=== PATIENT | male | born 1955 | race Caucasian/White ===

== ENCOUNTER 2017-11-09 08:04 | Day surgery (SDC) | payer BC, SELFPAY ==
--- NOTE | 2017-11-03 13:30 | EKG12_ITS ---
Test Reason : PRE OP Blood Pressure : / mmHG Vent. Rate : 068 BPM Atrial Rate : 068 BPM P-R Int : 176 ms QRS Dur : 066 ms QT Int : 366 ms P-R-T Axes : 037 -26 042 degrees QTc Int : 389 ms Normal sinus rhythm Inferior infarct , age undetermined, cannot be excluded Abnormal ECG Confirmed by ROSA ALDRIDGE, BLACK ([id number]), web editor INDIGO LEMA ([id number]) on 11/05/2017 1:56:02 PM Referred By: Og Marrufo Confirmed By:BLACK LEE MD
[2017-11-03 15:04] LABS: Hematocrit 43.4 % (40-54); Hemoglobin 15.4 g/dl (13.0-16.5); Mean Corp Hgb Conc 35.5 g/gl (32-36); Mean Corpuscular Hgb 30.7 pg (27.0-32.0); Mean Corpuscular Volume 86.6 fL (80-94); Mean Platelet Vol. 13.2 fl (6.2-12.0); Platelet Count 119 K/mm3 (150-450); RBC Distribution Width CV 12.7 % (11.6-14.6); RBC Distribution Width SD 39.4 fl (35.1-43.9); Red Blood Count 5.01 M/mm3 (4.6-6.2); White Blood Count 5.5 K/mm3 (4.4-11.0)
[2017-11-03 15:05] LABS: Scan Indicated on CBC? Y/N NO
[2017-11-03 15:10] LABS: International Normalized Ratio 1.1; Prothrombin Time (Protime)PT. 13.5 SECONDS (11.7-14.9)
[2017-11-03 15:31] LABS: AST(SGOT) 55 U/L (15-37); Alanine Aminotransfer ALT/SGPT 112 U/L (16-61); Albumin, Serum 3.9 g/dL (3.2-5.0); Alkaline Phosphatase 68 U/L (45-117); Anion Gap 9 (5-15); BUN 20 mg/dL (7-18); BUN/Creat Ratio 18.3 RATIO (10-20); Bilirubin, Direct 0.15 mg/dL (0.00-0.30); Calcium,Total 8.7 mg/dL (8.5-10.1); Chloride 102 mmol/L (98-107); Creatinine, Serum 1.09 mg/dL (0.70-1.30); EST Glomerular Filtration Rate 73 mL/min (>60); Est Glom Filt Rate - Afr Amer 88 mL/min (>60); Globulin 3.4 g/dL (2.2-4.2); Glucose 257 mg/dL (74-106); Potassium 3.8 mmol/L (3.5-5.1); Protein, Total 7.3 g/dL (6.4-8.2); Sodium Level 137 mmol/L (136-145); Thyroid Stim Hormone (TSH) 1.72 uIU/mL (0.358-3.74)
[2017-11-03 15:33] LABS: Hemoglobin A1c 7.1 % (4.2-6.3)
--- NOTE | 2017-11-09 07:06 | DCINST_ITS ---
Discharge Activity: Return to Normal Activity, May not drive while taking narcotic pain medications., May Shower May shower in (days): 2 May resume sexual activity in: 8 weeks Ice area for (Minutes): 20 Additional Activity Instructions:: For comfort. May flex and extend and move shoulder ad jennifer. Call your doctor if your incision/area has: Continuous Slow Oozing, Sudden Increased Bleeding, Increased Pain/ Swelling, Increased Redness, Foul Smelling Discharge, Swelling at the incision site Call your doctor if you observe: Fever of 101 or Higher, Coldness, Increased Pain, Numbness or Tingling, Change in Color, Inability to urinate, Inability to have a bowel movement, Using more than one pad per hour, Shortness of breath, Dizziness, Fainting spells, Swelling in the ankles, Chest pain, Prolonged hiccoughing, Increased palpitations (irregular heartbeat), Calf discomfort, Uncontrolled pain Suture Line Care: Avoid Pulling/Pushing, Avoid Pinching/Bending Change Dressing in (Days):: 2 Remove Dressing in (days):: 2 Cleanse incision/area with: Soap & Water Allergies/Adverse Reactions: Allergies Sulfa (Sulfonamide Antibiotics) Allergy (Mild, Verified 11/02/17 14:11) Hives acetaminophen [From Percocet] Adverse Reaction (Mild, Verified 11/08/17 12:08) anxious oxycodone [From Percocet] Adverse Reaction (Mild, Verified 11/08/17 12:08) anxious Medications to take at Discharge Levothyroxine [Synthroid] 125 mcg PO DAILY 10/26/13 Amlodipine [Norvasc] 5 mg PO DAILY 11/25/14 Brimonidine Tartrate/Timolol [Combigan Eye Drops] 1 drp EACH EYE BID 05/27/16 Brinzolamide [Azopt] 1 drp RIGHT EYE TID 05/27/16 Metformin HCl [Glucophage] 1,000 mg PO BID 05/27/16 Aspirin E.C. [Ecotrin] 81 mg PO QODAY 11/02/17 Erythromycin Ophthalmic [(None)] 1 applic LEFT EYE QHS 11/02/17 Glimepiride [Amaryl] 4 mg PO DAILY 11/02/17 Gluc/Raymond-MSM#1/C/Shilo/Nate/Bor [Osteo Bi-Flex Caplet] 1 each PO DAILY 11/02/17 Latanoprostene Bunod [Vyzulta] 1 drop EACH EYE QHS 11/02/17 Omeprazole 40 mg PO DAILY 11/02/17 Propylene Glycol/Peg 400/Pf [Systane 0.3-0.4% Eye Drops] 1 each EACH EYE BID 03/14 cyclobenzaprine 10 mg tablet 10 mg PO TID PRN #30 tab 11/08/17 Docusate Sodium [Colace] 100 mg PO BID PRN PRN #10 cap 11/09/17 Hydrocodone Bitart/Apap 5-325 [[place] 5/325] 1 - 2 tablet PO Q6H PRN PRN #30 tablet 11/09/17 ProMETHAzine [Phenergan] 25 mg PO Q4H PRN PRN #10 tab 11/09/17 The following prescriptions were given: ProMETHAzine [Phenergan] 25 mg PO Q4H PRN PRN #10 tab PRN Reason: Nausea Hydrocodone Bitart/Apap 5-325 [[place] 5/325] 1 - 2 tablet PO Q6H PRN PRN #30 tablet PRN Reason: Pain Docusate Sodium [Colace] 100 mg PO BID PRN PRN #10 cap PRN Reason: Constipation Primary Care Physician: Grabiel Head MD [STAFF PHYSICIAN] - Please Follow Up With: Og Marrufo DO When: call [facility] for appt for 2 weeks Proposed Discharge Date: 11/09/17
[2017-11-09 08:39] VITALS: BP 126/86; PULSE 70; RESP 16; TEMP 36.3; O2SAT 96; BMI 29.4
[2017-11-09 08:56] LABS: Bedside Glucose 219 mg/dL (70-110)
[2017-11-09] MEDS: Bupivacaine 0.25% 30 ML Vial (10:51)
[2017-11-09 12:40] VITALS: BP 113/84; BP 126/86; PULSE 60; RESP 16; TEMP 35.7; O2SAT 97
--- NOTE | 2017-11-09 12:41 | OP.PN_ITS ---
Immediate Post-Op Note Date of Procedure: 11/09/17 Primary Surgeon/Physician: Og Marrufo, math specialist: None Pre-Operative Diagnosis: Right shoulder osteoarthritis, right shoulder partial rotator cuff tear and labral tear, subacromial impingement Post-Operative Diagnosis: Same as above Surgery/Procedure Performed:: Right shoulder arthroscopy, arthroscopic partial articular sided rotator cuff for debridement, capsular release and type II SLAP debridement, arthroscopic subacromial decompression and acromioplasty Description of Surgical Findings:: See dictation Estimated Blood Loss: 50 Specimen's removed: None Type of Anesthesia:: General ASA Class: ASA1 Normal Healthy Patient - Admit VTE Documentation VTE Present on Admission: No VTE Mechan Device Prophylaxis: SCD's, Knee High LIO Hose VTE Pharm Prophylaxis ordered?: No Reason prophylaxis not ordered:: Treatment Not Indicated
--- NOTE | 2017-11-09 12:41 | PCM.OPRPT ---
Report of Operation Date of Procedure: 11/09/17 Pre-Operative Diagnosis: Right shoulder osteoarthritis, right shoulder partial rotator cuff tear and labral tear, subacromial impingement Post-Operative Diagnosis: Same as above Surgery/Procedure Performed:: Right shoulder arthroscopy, arthroscopic partial articular sided rotator cuff for debridement, capsular release and type II SLAP debridement, arthroscopic subacromial decompression and acromioplasty Description of Surgical Findings:: 62-year-old male with recalcitrant right shoulder pain that failed nonoperative management to include NSAIDs activity modifications physical therapy and injections. Patient plain radiograph and CT examination should that showed glenohumeral arthrosis. Patient was also shown to have a rotator cuff tear partial versus full-thickness not well delineated by CT arthrogram. Having failed conservative measures patient elected for operative intervention. Patient was met in the holding area where the right upper extremity was marked and identified with surgeon. Patient was taken to the operating room in satisfactory condition with somewhat to place to identify patient up procedure limb. Patient received 1 g of vancomycin secondary to MRSA. He underwent a successful intubation he was then placed into a beachchair position with all bony and soft tissue prominences protected. The patient's head was in a fine neutral position. He was then prepped and draped in usual fashion. Posterior portal was established and we entered the intra-articular space. Patient had global synovitis around the shoulder and significant degenerative changes consistent with osteoarthritis labral pathology and rotator cuff pathology. We established a anterior inferior working portal. Diagnostic scope showed the patient have a type II SLAP lesion which really somewhat circumferential around the labral tissue. 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 The patient's biceps although hypertrophic showed minimal injection upon outlet and the patient was asymptomatic preoperatively. The patient had articular sided rotator cuff tear from the supraspinatus moving back to the bare area. His infraspinatus and teres minor were otherwise normal. This was mechanically debrided using a shaver and vapor. Patient roughly 4.5 mm overall loss of thickness. The patient underwent a standard anterior release of the rotator interval [facility] and [facility]. And due to the fact that he had minimal drive-through sign a performed and [facility] L release using mechanical shaver and vapor cautery down to about the 530 position to avoid irritation of the subscapularis and the axillary nerve. Patient had a global debridement of the labrum specifically within the type II SLAP region. He also went underwent a partial synovectomy around the shoulder joint as much as I could identify using vapor cautery and shaver as well. Upon completion of debridement in the capsule release inside the shoulder I felt that the rotator cuff globally looked acceptable and no repair needed to be performed. Upon completion of the anterior inferior capsulotomy the patient had an improved drive-through sign I think this will overall improve his overall range of motion. At that point time the scope was retracted moving the subacromial space. The patient had extensive amount of subacromial bursitis. A lateral working portal was established and a standard arthroscopic subacromial bursectomy was performed to evaluate the rotator cuff through internal and external rotation. Upon removal of the bursal tissue evaluation of the port bursal side of the cuff showed no obvious signs of pathology. I could not appreciate any form of rent with palpation using the probe with a shaver. Again this was done very systematically through internal and external rotation. The patient did have very hypertrophic CA ligament which was released off the anterolateral acromion allowed to float anteriorly. The patient had a type III acromion which was then under underwent a standard acromioplasty of roughly 6 mm using block technique. Upon completion of control all bleeders the scope was retracted and the portal sites closed with 3-0 nylon. He was injected with 30 cc of Marcaine solution around the portal sites and in the subacromial space. He was then dressed in usual fashion to include Xeroform 4 x 4's ABDs and Medipore tape. Patient was then placed into a simple sling. Patient will follow the shoulder arthroscopy protocol from [facility]. I was scrubbed and available time during our procedure. If you require any for the patient presents contact me. bindery helper: None Type of Anesthesia:: General Specimen's removed: None Estimated Blood Loss (mL): 50 - Complications None - Admit VTE Documentation VTE Present on Admission: No VTE Mechan Device Prophylaxis: SCD's, Knee High LIO Hose VTE Pharm Prophylaxis ordered?: No Reason prophylaxis not ordered:: Treatment Not Indicated
[2017-11-09] MEDS: Ketorolac 15 MG/ML Vial IV (12:51)
[2017-11-09 13:00] VITALS: BP 119/87; BP 126/86; PULSE 58; RESP 16; O2SAT 94
[2017-11-09 13:15] VITALS: BP 118/86; BP 126/86; PULSE 52; RESP 16; O2SAT 94
[2017-11-09 13:30] VITALS: BP 118/81; BP 126/86; PULSE 62; RESP 16; TEMP 35.8; O2SAT 94
[2017-11-09 13:45] LABS: Bedside Glucose 150 mg/dL (70-110)
[2017-11-09 14:37] VITALS: BP 126/86
== END 2017-11-09 14:41 | disposition home or self-care (01) ==
LOC: SDC 08:05 → AC 08:06
PROVIDERS: Visit Provider Orthopaedic Surgery
PROC: (CPT 29827; principal; 2017-11-09 10:30)
DX: M75.111 Incomplete rotator cuff tear or rupture of right shoulder, not specified as traumatic (principal); M75.41 Impingement syndrome of right shoulder; M19.011 Primary osteoarthritis, right shoulder; G89.29 Other chronic pain; E11.9 Type 2 diabetes mellitus without complications; I10 Essential (primary) hypertension; H40.9 Unspecified glaucoma; G47.30 Sleep apnea, unspecified; R07.9 Chest pain, unspecified; K21.9 Gastro-esophageal reflux disease without esophagitis; Z79.82 Long term (current) use of aspirin; F17.200 Nicotine dependence, unspecified, uncomplicated; Z79.84 Long term (current) use of oral hypoglycemic drugs; Z79.899 Other long term (current) drug therapy; I25.2 Old myocardial infarction
CPT/HCPCS: 01630; 29822; 29826; 36415; 80048; 80076; 82962; 83036; 84443; 85027; 85610; 85730; J7120; J2405

== ENCOUNTER → 2017-11-29 14:10 | Outpatient (CLI) | payer BC, SELFPAY | DX: Z00.00 Encounter for general adult medical examination without abnormal findings (principal) ==

== ENCOUNTER 2017-12-30 13:30 | Outpatient (RCR) | payer BC, SELFPAY ==
--- NOTE | 2017-11-30 14:36 | HP.PTEVAL_ITS ---
Patient's Visit Information ROBERT ART is a 62 year old M referred to Physical Therapy by DO MARITZA Perez with a diagnosis of R shoulder SAD and debridement. Date of Evaluation: 11/30/17 Physical Therapist: Prince Coburn PT, - Visit Plan Frequency: 2x /Week Duration: 4-6 Weeks Plan: R shoulder AROM/PROM, stretching and strengthening, scap stab ex's, UBE, and HEP - Subjective Subjective: DOS: 11/09/17. Pt reports intermittent R shoulder pain for approximately 2-3 years. Pt finally had SAD and R rot cuff debridement performed to help alleviate the pain. Pt reports he is feeling much better since having the surgery. Pt reports he still has diff with overhead lifting. Pt is R hand dominant. No T or N in R UE. Occasional sleep diff secondary to pain. Pt is currently retired at this time. Pt reports his goal is to get better ROM and strength in R UE so he can return to his normal IADL's. 2/10 at rest, 7/10 in the morning - Pain R shoulder Pain Intensity (Out of 10): 2 Pain Intensity Range: 7 - Objective Neuro: B LE sensation is WNL to light touch. B bicepital reflex= 1/3. ROM: L shoulder flex= 160, abd= 160, ER= 50, IR WNL; R shoulder flex= 80, abd= 80, ER= 40, IR moderately limited. MMT: L shoulder 5/5 throughout. R shoulder 3-/5 and painful - Goals Goal 1:: Decrease R shoulder pain x 50% to aid with sleep Goal Time Frame: 4-6 Weeks Goal 2:: Increase R shoulder AROM flex and abd x 30 degerees to aid with overhead activity Goal Time Frame: 4-6 Weeks Goal 3:: Increase R shoulder strength x 1 grade to aid with pt's ability to perform yard work Goal Time Frame: 4-6 Weeks Goal 4:: I with HEP Goal Time Frame: 4-6 Weeks - Rehabilitation Potential Physical Therapy Diagnosis: R shoulder pain, weakness, and limited mobility secondary to R shoulder SAD and debridement Rehabilitation Potential: Good - Anticipated Interventions Patient/Client Instruction: Educate patient on: Condition, Plan of Care For the Purpose of:: To improve self management Therapeutic Exercise to Include: Strength training, Endurance training, Postural training, Flexibilty training, Passive ROM, Active ROM, Scapular Strength/Stabilization For the Purpose of:: To decrease pain, To increase ROM, To improve muscle performance and motor function Cryotherapy (ice pack, ice massage): Yes For the Purpose of:: To decrease pain Thank you for the opportunity to evaluate your patient. For Medicare and Medicare HMO plans, please review the plan of care and approve it. It will need to be FAXED BACK to us at [phone] for Medicare purposes. Please let me know if there are questions or concerns regarding this plan of care. Physician Signature: Date:
--- NOTE | 2017-12-30 14:02 | HP.PTDCSUM ---
HP - PT D/C Summary It has been my pleasure to treat ROBERT ART under orders from Og Marrufo DO, for the diagnosis of R shoulder SAD and debridement for a total of 10 visit(s). Discharge Date: Please see the following information for a summary of their discharge status. - Subjective Subjective: Pt reports only mild pain this date - Pain R shoulder Pain Intensity (Out of 10): 4 - Objective Objective/Function: R shoulder pain 4/10. R shoudler ROM: flex= 160, abd= 120, ER= 40, IR WNL. R shoulder MMT: R shoulder 5/5 throughout. I with HEP - Goals Goal 1:: Decrease R shoulder pain x 50% to aid with sleep Goal 2:: Increase R shoulder AROM flex and abd x 30 degerees to aid with overhead activity Goal Progress: Goal Met Goal 3:: Increase R shoulder strength x 1 grade to aid with pt's ability to perform yard work Goal 4:: I with HEP - Plan Plan: Discharge - D/C Information If there are questions or concerns regarding this patient's physical therapy, please feel free to call me at [phone]. Thank you for the referral of this patient. Sincerely, Prince Coburn, PT,
== END 2017-12-30 19:00 | disposition home or self-care (01) ==
LOC: PT 13:30
PROVIDERS: Visit Provider Orthopaedic Surgery
DX: Z98.890 Other specified postprocedural states (principal)
CPT/HCPCS: 97110; 97161; 97530

== ENCOUNTER 2018-05-17 12:25 | Emergency (ER) | payer BC, SELFPAY ==
--- NOTE | 2018-05-17 12:26 | ED.RN ---
PT PRE REG STRAIGHT TO ROOM. THIS RN CALLED FOR EKG
[2018-05-17 12:32] VITALS: BP 127/92; PULSE 67; RESP 17; TEMP 36.4; BMI 28.7
[2018-05-17 12:34] VITALS: PULSE 66; RESP 22; O2SAT 95
[2018-05-17] MEDS: 0.9% Normal Saline 1,000 ML 150 ML IV (13:14)
[2018-05-17] MEDS: Morphine 4 MG/ML Syringe IV (13:14)
[2018-05-17 13:16] LABS: Absolute Lymphocyte Count 2.02 X10^3/ul (0.83-4.51); Absolute Neutrophil Count 4.3 X10^3/uL (2.0-7.7); Basophil# 0.04 X10^3/uL; Basophil% 0.6 % (0-1); Eosinophil# 0.11 X10^3/uL; Eosinophils% 1.6 % (0-5); Hematocrit 45.2 % (40-54); Hemoglobin 15.6 g/dl (13.0-16.5); Lymphocyte # 2.02 X10^3/ul (4.0); Lymphocyte % 28.9 % (19-41); Mean Corp Hgb Conc 34.5 g/gl (32-36); Mean Corpuscular Hgb 30.5 pg (27.0-32.0); Mean Corpuscular Volume 88.5 fL (80-94); Mean Platelet Vol. 12.2 fl (6.2-12.0); Monocyte% 7.2 % (0-10); Neutrophil % 61.4 % (47-70); Platelet Count 135 K/mm3 (150-450); RBC Distribution Width CV 12.8 % (11.6-14.6); RBC Distribution Width SD 41.2 fl (35.1-43.9); Red Blood Count 5.11 M/mm3 (4.6-6.2)
[2018-05-17 13:17] LABS: POSITIVE COUNT NO; POSITIVE DIFFERENTIAL NO; POSITIVE MORPHOLOGY NO
[2018-05-17 13:33] LABS: Anion Gap 6 (5-15); BUN 22 mg/dL (7-18); BUN/Creat Ratio 22.1 RATIO (10-20); Calcium,Total 9.1 mg/dL (8.5-10.1); Chloride 108 mmol/L (98-107); EST Glomerular Filtration Rate 80 mL/min (>60); Est Glom Filt Rate - Afr Amer 97 mL/min (>60); Estimated Creatinine Clearance 78.07 ml/min; Glucose 163 mg/dL (74-106); Potassium 4.2 mmol/L (3.5-5.1); Sodium Level 140 mmol/L (136-145)
[2018-05-17 14:24] VITALS: BP 115/77; PULSE 60; RESP 24; O2SAT 93
--- NOTE | 2018-05-17 14:31 | ED.DCSUM_ITS ---
- ER Visit Summary Date of Service: 05/17/18 Chief Complaint: Chest pain History of Present Illness: The patient is a [address] Head. He reports that he has left lower chest pain that began 2 days ago. It is been continuous for the past 13 hours. It is a sharp pain. Senna 10 at worst and 6 out of 10 currently. Is worsened by eating and relieved by [place]. Reports he has felt nauseated. No vomiting. He has been diaphoretic at time. No shortness of breath. Patient reports that he has increased his intake of ibuprofen and Aleve over the past few weeks. Physical Examination: Vitals: Stable. Afebrile. General: Well-nourished and well-developed. Head: Normocephalic atraumatic. Neck: Supple, no lymphadenopathy. No JVD. Nontender. Cardiovascular: Regular rate and rhythm. No murmurs. Respiratory: No respiratory distress. Clear to auscultation bilaterally. Mild tenderness palpation over the lower ribs on the left which does reproduce his pain. Abdominal: Soft, nontender, nondistended, normal bowel sounds. No guarding, rebound, or peritoneal signs. Back: Nontender. Extremities: Nontender, no edema. Skin: Normal color, no rash. Neurologic: Alert and oriented ?3. Cranial nerves II through XII are intact. Normal strength and sensation. Psych: Normal affect. Test Results: EKG is sinus at [address] changes. It is unchanged from October of this year. Troponins negative. CBC is more for platelets 135. Chem-7 is more for chloride 108, BUN of 22, and glucose of 163. Chest x- ray shows atelectasis. Emergency Department Course and Treatment: Patient was treated the dose of morphine IV. He is resting comfortably. Treatment Plan: Had a prolonged discussion with the patient about the possibility of gastritis given his increased naproxen and ibuprofen. He is instructed to take his Nexium daily. Use Tylenol instead for pain. Follow-up his primary care physician 1 to days if not improving. Return to the emergency department for any worsening symptoms. Disposition: To home in improved and stable condition. Impression: 1. Atypical chest pain. 2. MANUEL score of 1. This note was generated with KupiKupon[employer] software. It may contain incorrect words, spelling, and punctuation that were not noted in review of the chart prior to signing ED Disposition - Plan for ED Patient: Disposition: Home or Assisted Living Chief Complaint: Chest Pain Instructions: ED Chest Pain Atypical Unkn Cause Referrals: Grabiel Head [Primary Care Provider] - 3-5 Days if not improving
[2018-05-17 14:57] VITALS: BP 113/84; PULSE 56; RESP 16; O2SAT 93
== END 2018-05-17 14:59 | disposition home or self-care (01) ==
LOC: ED 12:59
PROVIDERS: Emergency Provider Emergency Medicine
DX: R07.89 Other chest pain (principal); J98.11 Atelectasis; R11.0 Nausea; E11.9 Type 2 diabetes mellitus without complications; I10 Essential (primary) hypertension; G47.33 Obstructive sleep apnea (adult) (pediatric); H40.9 Unspecified glaucoma; Z79.84 Long term (current) use of oral hypoglycemic drugs; Z79.82 Long term (current) use of aspirin; Z79.899 Other long term (current) drug therapy
CPT/HCPCS: 71045; 80048; 84484; 85025; 93005; 96361; 96374; 99284; J7030; A4216

== ENCOUNTER → 2018-07-11 10:34 | Outpatient (CLI) | payer BC, SELFPAY ==
[2018-07-11 12:53] LABS: Hemoglobin A1c 6.8 % (4.2-6.3)
[2018-07-11 12:57] LABS: AST(SGOT) 52 U/L (15-37); Alanine Aminotransfer ALT/SGPT 94 U/L (16-61); Alkaline Phosphatase 70 U/L (45-117); Bilirubin, Direct 0.14 mg/dL (0.00-0.30); Cholesterol 164 mg/dL (200); Globulin 3.4 g/dL (2.2-4.2); High Density Lipoprotein 38 mg/dL; Protein, Total 7.4 g/dL (6.4-8.2); Thyroid Stim Hormone (TSH) 2.97 uIU/mL (0.358-3.74); Triglycerides 136 mg/dL; Very Low Density Lipoprotein 27 mg/dL (5-40)
== END ==
PROVIDERS: Referring Provider Family Medicine; Visit Provider Family Medicine
DX: I10 Essential (primary) hypertension (principal); E03.9 Hypothyroidism, unspecified; E11.65 Type 2 diabetes mellitus with hyperglycemia
CPT/HCPCS: 36415; 80061; 80076; 83036; 84443

== ENCOUNTER → 2018-07-18 08:54 | Outpatient (CLI) | payer BC, SELFPAY ==
--- NOTE | 2018-07-18 08:57 | RAD_ITS ---
STUDY: X-RAY - ESOPHAGUS (BARIUM SWALLOW) WITH FLUOROSCOPY REASON FOR EXAM: Male, 63 years old. Two-year history of a acid reflux. TECHNIQUE: 23 view(s) of the esophagus were obtained following swallowing of barium. FLUOROSCOPY TIME (if supplied): (0:30) minutes/seconds COMPARISON: None. FINDINGS: There is no demonstrated esophageal foreign body. There is no demonstrated stricture or mucosal abnormality. Normal gastroesophageal junction, without a demonstrated hiatal hernia. The patient ingested a 12 mm tablet and without any difficulty. Normal visualized aortic arch and descending thoracic aorta. Normal visualized pulmonary parenchyma. Normal visualized osseous structures of the thorax. RAD/Esophagus Only IMPRESSION: Normal plain film x-ray examination (barium swallow) of the esophagus. Electronically Signed: Deangelo Mora MD at 15:57 EDT Tel [phone], Service support ,
== END ==
PROVIDERS: Referring Provider Internal Medicine Gastroenterology; Visit Provider Internal Medicine Gastroenterology
DX: R13.10 Dysphagia, unspecified (principal)
CPT/HCPCS: 74220

== ENCOUNTER → 2018-08-01 14:28 | Outpatient (CLI) | payer BC, SELFPAY ==
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
== END ==
PROVIDERS: Referring Provider Otolaryngology; Visit Provider Otolaryngology
DX: J32.9 Chronic sinusitis, unspecified (principal)
CPT/HCPCS: 70486

== ENCOUNTER → 2018-09-01 15:01 | Outpatient (CLI) | payer BC, SELFPAY ==
[2018-09-01 17:11] LABS: PSA,Total - Annual Screen 3.14 ng/mL (0.00-4.00)
== END ==
PROVIDERS: Referring Provider Urology; Visit Provider Urology
DX: Z12.5 Encounter for screening for malignant neoplasm of prostate (principal)
CPT/HCPCS: 36415; 84153; G0103

== ENCOUNTER 2018-10-05 06:37 | Observation (INO) | payer BC, SELFPAY ==
[2018-10-05] VITALS (15 sets, daily range): BP systolic 101–132; BP diastolic 59–87; PULSE 55–73; RESP 12–18; TEMP 36.6–37; O2SAT 91–99; BMI 29.3; BMI 28.7; BMI 28.8
--- NOTE | 2018-10-05 06:46 | RAD_ITS ---
STUDY: X-RAY CHEST REASON FOR EXAM: Male, 63 years old. Chest pain TECHNIQUE: Single frontal view of the chest. COMPARISON: May 17, 2018. FINDINGS: EKG leads artifacts. No pneumothorax. No pleural effusion. Left basilar atelectasis/infiltrate. Normal size heart. Aortic calcifications. There are diffuse degenerative changes of the visualized thoracic spine. There is degenerative osteoarthritis of the bilateral shoulders. There is no demonstrated abnormality of the visualized soft tissue structures of the upper abdomen. RAD/Chest 1 View (Portable) IMPRESSION: Left basilar atelectasis/infiltrate. Electronically Signed: Roberto Carlos Larsen, at 7:48 EST Tel , Service support ,
--- NOTE | 2018-10-05 06:46 | EKG12_ITS ---
Test Reason : CP Blood Pressure : / mmHG Vent. Rate : 063 BPM Atrial Rate : 063 BPM P-R Int : 164 ms QRS Dur : 064 ms QT Int : 402 ms P-R-T Axes : 049 -44 057 degrees QTc Int : 411 ms Normal sinus rhythm Left axis deviation Abnormal ECG Confirmed by SCAR ALDRIDGE, MAYRA ([id number]), editor farm journal INDIGO LEMA ([id number] on 10/10/2018 10:01:31 AM Referred By: LUC Confirmed By:MAYRA ABBOTT MD
--- NOTE | 2018-10-05 06:49 | ED.VISSUMM ---
- ER Visit Summary Date of Service: 10/05/18 Chief Complaint: Chest pain History of Present Illness: The patient is a 63 M who presents with chest pain. It began 2 days ago. It worsened overnight. His pain is sharp. It is located in the lower chest/upper abdomen. He does feel short of breath and nauseated. No vomiting or diaphoresis. He called EMS this morning and was given aspirin and 1 sublingual nitroglycerin. After the nitroglycerin he became nauseated. He then became bradycardic and had a syncopal episode. He does note a prior history of chest pain chronically at least for many months and has seen his physician for this. No known coronary disease. He does have diabetes and hypertension and is a smoker. There is a family history of coronary disease but not at a young age. His pain was 7 out of 10 but he was given aspirin and nitroglycerin by EMS and his pain improved to 3 out of 10. Physical Examination: Blood pressure 101/59 vitals otherwise normal Moist mucous membranes Skin warm and dry Heart regular rate and rhythm Lungs are clear without rales rhonchi or wheezes The abdomen soft nondistended he does have epigastric tenderness to palpation Extremities nontender without edema 2+ symmetric radial pulses Test Results: EKG shows sinus rhythm at a rate of 63. Chest x-ray on my review shows no acute process. CBC unremarkable.. Labs otherwise notable for glucose 160, ALT 131, AST 62. Lipase normal. Troponin negative. CTA of the chest and abdomen is pending. Emergency Department Course and Treatment: Patient was guarded given aspirin by EMS. Although nitroglycerin did help with his symptoms given that he became nauseated and had a syncopal episode I did not want to give any further nitroglycerin here. He was given IV morphine with some improvement of symptoms. He then began to complain of pain radiating towards his left shoulder. Given chest and abdominal pain I have ordered a CTA of the chest and abdomen to further evaluate. Patient will be discussed with the oncoming physician for follow-up on the CTs and reevaluation. Treatment Plan: [] Disposition: Pending CTA chest and abdomen Impression: Chest pain Abdominal pain This note was generated with [employer] dictation software. It may contain incorrect words, spelling, and punctuation that were not noted in review of the chart prior to signing ED Disposition - Plan for ED Patient: Chief Complaint: Chest Pain Referrals: Grabiel Head [Primary Care Provider] -
[2018-10-05] MEDS: Ondansetron 4 MG/2 ML Vial IV (06:55)
[2018-10-05] MEDS: Morphine 4 MG/ML Syringe IV ×2 (06:58→07:51)
[2018-10-05 07:03] LABS: Absolute Lymphocyte Count 3.01 X10^3/ul (0.83-4.51); Absolute Neutrophil Count 4.1 X10^3/uL (2.0-7.7); Basophil# 0.04 X10^3/uL; Basophil% 0.5 % (0-1); Eosinophil# 0.11 X10^3/uL; Eosinophils% 1.4 % (0-5); Hematocrit 44.2 % (40-54); Lymphocyte # 3.01 X10^3/ul (4.0); Lymphocyte % 38.3 % (19-41); Mean Corp Hgb Conc 33.9 g/gl (32-36); Mean Corpuscular Hgb 29.8 pg (27.0-32.0); Mean Corpuscular Volume 87.9 fL (80-94); Mean Platelet Vol. 12.1 fl (6.2-12.0); Monocyte# 0.59 X10^3/uL; Monocyte% 7.5 % (0-10); Neutrophil # 4.09 X10^3/uL (2.7-7.7); Neutrophil % 52.2 % (47-70); Platelet Count 124 K/mm3 (150-450); RBC Distribution Width CV 12.6 % (11.6-14.6); RBC Distribution Width SD 40.5 fl (35.1-43.9); Red Blood Count 5.03 M/mm3 (4.6-6.2); White Blood Count 7.9 K/mm3 (4.4-11.0)
[2018-10-05 07:04] LABS: POSITIVE COUNT NO; POSITIVE DIFFERENTIAL NO; POSITIVE MORPHOLOGY NO
[2018-10-05 07:17] LABS: AST(SGOT) 62 U/L (15-37); Alanine Aminotransfer ALT/SGPT 131 U/L (16-61); Albumin, Serum 3.7 g/dL (3.2-5.0); Alkaline Phosphatase 74 U/L (45-117); Anion Gap 8 (5-15); BUN 17 mg/dL (7-18); BUN/Creat Ratio 17.1 RATIO (10-20); Bilirubin, Direct 0.16 mg/dL (0.00-0.30); Calcium,Total 8.4 mg/dL (8.5-10.1); Chloride 107 mmol/L (98-107); EST Glomerular Filtration Rate 80 mL/min (>60); Est Glom Filt Rate - Afr Amer 97 mL/min (>60); Estimated Creatinine Clearance 77.06 ml/min; Globulin 3.3 g/dL (2.2-4.2); Glucose 160 mg/dL (74-106); Lipase 181 U/L (73-393); Potassium 3.9 mmol/L (3.5-5.1); Sodium Level 139 mmol/L (136-145)
--- NOTE | 2018-10-05 07:39 | CT_ITS ---
STUDY: CTA OF THE ABDOMINAL AORTA REASON FOR EXAM: Male, 63 years old. Chronic right-sided chest pain and rib pain. RADIATION DOSAGE (If Supplied By Facility): CTDIvol = ( 15.67 ) mGy, DLP = ( 1156.67 ) mGycm TECHNIQUE: Axial CT angiography multi-detector data acquisition was obtained from the dome of the liver to the iliac crests following intravenous administration of 100 ml of Isovue 300 contrast. Axial images and MIP images were reconstructed from the axial data set. Post-processing of the angiographic images was performed, with multiplanar reformation and 3D reconstruction. Individualized dose optimization techniques were used for this CT. TECHNICAL QUALITY: Good COMPARISON: None. Descriptors of Narrowing: None (0%) Mild (< 50%) Moderate (50-70%) Severe (70-90%) Subtotal/Total Occlusion (90-100%) Non-Evaluable (technically non-diagnostic FINDINGS: There is diffuse fatty infiltration of the liver. There is a 4.4 cm x 4.4 cm cyst in the medial inferior pole of the right kidney. Small umbilical hernia containing fat. Abdominal aorta: No demonstrated narrowing. Celiac and superior mesenteric arteries: No demonstrated narrowing. Inferior mesenteric artery: No demonstrated narrowing. Right renal artery(arteries): No demonstrated narrowing. Left renal artery(arteries): No demonstrated narrowing. Right common iliac artery: No demonstrated narrowing. Right external iliac artery: No demonstrated narrowing. Right internal iliac artery: No demonstrated narrowing. Left common iliac artery: No demonstrated narrowing. Left external iliac artery: No demonstrated narrowing. Left internal iliac artery: No demonstrated narrowing. IMPRESSION: Diffuse fatty infiltration of the liver. Right renal cyst. Multilevel disc space narrowing and spondylosis. Electronically Signed: Deangelo Mora MD at 8:54 EST Tel [phone], Service support , STUDY: CTA CHEST REASON FOR EXAM: Male, 63 years old. Right-sided chest pain and rib pain for several months. RADIATION DOSAGE (If Supplied By Facility): CTDIvol = ( 15.67 ) mGy, DLP = ( 1156.67 ) mGycm TECHNIQUE: The examination was performed with the intravenous administration of 100 ml of Isovue 300 contrast material. Post-processing of the angiographic images was performed, with multiplanar reformation and 3D reconstruction. Individualized dose optimization techniques were used for this CT. COMPARISON: None. FINDINGS: Normal enhancement of the main pulmonary artery and right and left pulmonary arteries. Normal enhancement of the bilateral peripheral pulmonary arteries. There is no demonstrated pulmonary embolism. Normal thoracic aorta and visualized great vessels. There is no demonstrated aortic dissection. Normal heart and pericardium. Normal mediastinum. Normal hilar regions. Normal visualized trachea and bronchi. The lungs are well expanded. Normal pulmonary parenchyma. Normal pleura. Normal chest wall structures. There are degenerative changes of thoracic spine. Small hiatal hernia. Diffuse fatty infiltration of the liver. CT/CTA Abdomen W/WO Contrast IMPRESSION: Normal CTA chest examination, without a demonstrated pulmonary embolism or arterial dissection. Electronically Signed: Deangelo Mora MD at 8:55 EST Tel [phone], Service support ,
--- NOTE | 2018-10-05 07:39 | CT_ITS ---
STUDY: CTA OF THE ABDOMINAL AORTA REASON FOR EXAM: Male, 63 years old. Chronic right-sided chest pain and rib pain. RADIATION DOSAGE (If Supplied By Facility): CTDIvol = ( 15.67 ) mGy, DLP = ( 1156.67 ) mGycm TECHNIQUE: Axial CT angiography multi-detector data acquisition was obtained from the dome of the liver to the iliac crests following intravenous administration of 100 ml of Isovue 300 contrast. Axial images and MIP images were reconstructed from the axial data set. Post-processing of the angiographic images was performed, with multiplanar reformation and 3D reconstruction. Individualized dose optimization techniques were used for this CT. TECHNICAL QUALITY: Good COMPARISON: None. Descriptors of Narrowing: None (0%) Mild (< 50%) Moderate (50-70%) Severe (70-90%) Subtotal/Total Occlusion (90-100%) Non-Evaluable (technically non-diagnostic FINDINGS: There is diffuse fatty infiltration of the liver. There is a 4.4 cm x 4.4 cm cyst in the medial inferior pole of the right kidney. Small umbilical hernia containing fat. Abdominal aorta: No demonstrated narrowing. Celiac and superior mesenteric arteries: No demonstrated narrowing. Inferior mesenteric artery: No demonstrated narrowing. Right renal artery(arteries): No demonstrated narrowing. Left renal artery(arteries): No demonstrated narrowing. Right common iliac artery: No demonstrated narrowing. Right external iliac artery: No demonstrated narrowing. Right internal iliac artery: No demonstrated narrowing. Left common iliac artery: No demonstrated narrowing. Left external iliac artery: No demonstrated narrowing. Left internal iliac artery: No demonstrated narrowing. IMPRESSION: Diffuse fatty infiltration of the liver. Right renal cyst. Multilevel disc space narrowing and spondylosis. Electronically Signed: Deangelo Mora MD at 8:54 EST Tel [phone], Service support , STUDY: CTA CHEST REASON FOR EXAM: Male, 63 years old. Right-sided chest pain and rib pain for several months. RADIATION DOSAGE (If Supplied By Facility): CTDIvol = ( 15.67 ) mGy, DLP = ( 1156.67 ) mGycm TECHNIQUE: The examination was performed with the intravenous administration of 100 ml of Isovue 300 contrast material. Post-processing of the angiographic images was performed, with multiplanar reformation and 3D reconstruction. Individualized dose optimization techniques were used for this CT. COMPARISON: None. FINDINGS: Normal enhancement of the main pulmonary artery and right and left pulmonary arteries. Normal enhancement of the bilateral peripheral pulmonary arteries. There is no demonstrated pulmonary embolism. Normal thoracic aorta and visualized great vessels. There is no demonstrated aortic dissection. Normal heart and pericardium. Normal mediastinum. Normal hilar regions. Normal visualized trachea and bronchi. The lungs are well expanded. Normal pulmonary parenchyma. Normal pleura. Normal chest wall structures. There are degenerative changes of thoracic spine. Small hiatal hernia. Diffuse fatty infiltration of the liver. CT/CTA Chest W/WO Contrast IMPRESSION: Normal CTA chest examination, without a demonstrated pulmonary embolism or arterial dissection. Electronically Signed: Deangelo Mora MD at 8:55 EST Tel [phone], Service support ,
[2018-10-05] MEDS: proMETHazine 25 MG/ML Syringe 12.5 MG IV (07:51)
--- NOTE | 2018-10-05 09:24 | NURSING ---
HOSPITALIST FOR ER DOC
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
--- NOTE | 2018-10-05 10:06 | EKG12_ITS ---
Test Reason : CHEST PAIN Blood Pressure : / mmHG Vent. 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
[2018-10-05] MEDS: Gabapentin 300 MG Capsule PO ×3 (12:09→22:17)
[2018-10-05 17:15] LABS: Bedside Glucose 213 mg/dL (70-110)
[2018-10-05] MEDS: BRIMONIDINE 0.2% 5ML BOTTLE 1 DRP EACH EYE (22:03)
[2018-10-05] MEDS: Timolol 0.5% 5ML OPTH.BTL 1 DRP EACH EYE (22:03)
[2018-10-05] MEDS: Dorzolamide 2% 10ml Bottle 1 DRP RIGHT EYE (22:11)
[2018-10-05] MEDS: Erythromycin Base 1 OPTH.TUBE 1 APPLIC LEFT EYE (22:14)
[2018-10-05] MEDS: Acetaminophen 325 MG Tablet 650 MG PO (22:38)
[2018-10-05] MEDS: 0.9% NaCl Peripheral Flush Adult/Peds IV (23:28)
[2018-10-06] VITALS (12 sets, daily range): BP systolic 121–136; BP diastolic 74–91; PULSE 59–104; RESP 16–17; TEMP 36.7–36.8; O2SAT 92–96
--- NOTE | 2018-10-06 05:00 | EKG12_ITS ---
Test Reason : AM EKG Blood Pressure : / mmHG Vent. Rate : 057 BPM Atrial Rate : 057 BPM P-R Int : 164 ms QRS Dur : 080 ms QT Int : 402 ms P-R-T Axes : 036 -43 050 degrees QTc Int : 391 ms Sinus bradycardia Left axis deviation Abnormal ECG When compared with ECG of 05-OCT-2018 10:15, MANUAL COMPARISON REQUIRED, DATA IS UNCONFIRMED Confirmed by SCAR ALDRIDGE, MAYRA ([id number]), avid editor [employer]DIG[employer] LEMA ([id number]) on 10/10/2018 10:20:58 AM Referred By: DR WILKINSON Confirmed By:MAYRA ABBOTT MD
[2018-10-06 05:12] LABS: International Normalized Ratio 1.1; Prothrombin Time (Protime)PT. 14.1 SECONDS (11.7-14.9)
[2018-10-06 05:13] LABS: Absolute Lymphocyte Count 2.02 X10^3/ul (0.83-4.51); Absolute Neutrophil Count 2.7 X10^3/uL (2.0-7.7); Anion Gap 9 (5-15); BUN 20 mg/dL (7-18); BUN/Creat Ratio 20.6 RATIO (10-20); Basophil# 0.04 X10^3/uL; Basophil% 0.7 % (0-1); Calcium,Total 8.4 mg/dL (8.5-10.1); Chloride 108 mmol/L (98-107); Creatinine, Serum 0.97 mg/dL (0.70-1.30); EST Glomerular Filtration Rate 83 mL/min (>60); Eosinophils% 1.8 % (0-5); Est Glom Filt Rate - Afr Amer 100 mL/min (>60); Estimated Creatinine Clearance 79.44 ml/min; Glucose 179 mg/dL (74-106); Hematocrit 41.9 % (40-54); Lymphocyte # 2.02 X10^3/ul (4.0); Lymphocyte % 37.3 % (19-41); Mean Corp Hgb Conc 33.4 g/gl (32-36); Mean Corpuscular Volume 89.9 fL (80-94); Mean Platelet Vol. 12.5 fl (6.2-12.0); Monocyte# 0.51 X10^3/uL; Monocyte% 9.4 % (0-10); Neutrophil # 2.74 X10^3/uL (2.7-7.7); Neutrophil % 50.6 % (47-70); Partial Thromboplast Time 26.2 Seconds (24.1-36.2); Platelet Count 100 K/mm3 (150-450); Potassium 4.1 mmol/L (3.5-5.1); RBC Distribution Width CV 12.8 % (11.6-14.6); RBC Distribution Width SD 41.3 fl (35.1-43.9); Red Blood Count 4.66 M/mm3 (4.6-6.2); Sodium Level 144 mmol/L (136-145); White Blood Count 5.4 K/mm3 (4.4-11.0)
[2018-10-06] MEDS: Gabapentin 300 MG Capsule PO ×3 (05:14→22:02)
[2018-10-06] MEDS: Aspirin E.C. 81 MG Tablet PO (05:14)
[2018-10-06] MEDS: Levothyroxine 125 MCG Tablet PO (05:14)
[2018-10-06] MEDS: Dorzolamide 2% 10ml Bottle 1 DRP RIGHT EYE ×3 (05:15→22:00)
[2018-10-06 05:50] LABS: POSITIVE COUNT NO; POSITIVE DIFFERENTIAL NO; POSITIVE MORPHOLOGY NO
--- NOTE | 2018-10-06 06:28 | NURSING ---
Patient to stress test via wheelchair, denies chest pain at this time.
[2018-10-06] MEDS: Enoxaparin 40 MG/0.4 ML Syringe SC (09:02)
[2018-10-06] MEDS: Docusate Sodium 100 MG Capsule PO (09:02)
[2018-10-06] MEDS: Glimepiride 4 MG Tablet PO (09:02)
[2018-10-06] MEDS: amLODIPine 5 MG Tablet PO (09:03)
[2018-10-06] MEDS: Pantoprazole Sodium 40 MG Tablet PO (09:03)
[2018-10-06] MEDS: BRIMONIDINE 0.2% 5ML BOTTLE 1 DRP EACH EYE ×2 (09:04→22:00)
[2018-10-06] MEDS: Timolol 0.5% 5ML OPTH.BTL 1 DRP EACH EYE ×2 (09:04→22:01)
[2018-10-06] MEDS: Acetaminophen 325 MG Tablet 650 MG PO ×2 (09:07→18:19)
--- NOTE | 2018-10-06 10:13 | STRESSREP_ITS ---
Stress Test Report Date: 10/06/2018 Procedure: Exercise tolerance test/imaging study Indications: Chest pain Consent: Per the patient Procedure: The patient exercised on a Brandan protocol for 7 minutes completing Stage II and 1 minute of Stage III achieving a peak heart rate of 148 bpm (94 % predicted maximal heart rate) with a peak blood pressure 192/90 mmHg and a peak MET capacity of 8 METs. The baseline ECG demonstrated sinus bradycardia. The peak exercise ECG demonstrated somatic/motion artifact with no obvious ECG changes. There was a rare PVC during exercise. The functional capacity was considered. There was no complaint of chest discomfort during exercise or recovery. The examination was discontinued secondary to leg discomfort. Impression: 1. Technically adequate (percent predicted maximal heart rate greater than 85%) exercise tolerance test 2. Peak exercise ECG demonstrated somatic/motion artifact with no obvious ECG changes 3. It was a rare PVC during exercise 4. Nuclear images pending Myocardial perfusion imaging study: Technique: The patient was injected with 11.9 mCi of technetium 99m Cardiolite and subsequently rest SPECT Cardiolite nuclear imaging was obtained in the horizontal long, vertical long, and short axis views. The patient exercised on a Brandan protocol for 7 minutes completing Stage II and 1 minute of Stage III achieving a peak heart rate of 148 bpm (94 % predicted maximal heart rate) with a peak blood pressure 192/90 mmHg and a peak MET capacity of 8 METs. The patient was injected with 34.7 mCi of technetium 99m Cardiolite and subsequently stress SPECT Cardiolite nuclear imaging was obtained in the horizontal long, vertical long, and short axis views. A gated Cardiolite study at peak stress was obtained. Interpretation: Rest and stress SPECT Cardiolite nuclear imaging status post realignment and normalization demonstrates at rest the appearance of relative uniform tracer uptake in myocardial perfusion and normal limits. Status post stress there is an area of diminished myocardial perfusion uptake in portions of the basal to mid inferior segments.. There is end systolic thickening and brightening. The gated Cardiolite study demonstrates myocardial thickening and inward wall motion. The reported LVEF is 58 %. Impression: 1. Rest and stress SPECT Cardiolite nuclear imaging demonstrate post-rest myocardial perfusion changes appearing concerning for an area of stress-induced myocardial ischemia involving portions of the basal to mid inferior segments. 2. The gated Cardiolite study reports an LVEF of 58 %. This note was generated with [employer] software. It may contain incorrect words, spelling, and punctuation that were not noted in checking the note before signing.
--- NOTE | 2018-10-06 10:33 | PCM.PN.HOSP ---
Subjective: Patient seen and examined. He had no complaints. Chest pain had not recurred. He denied any fever or chills, cough or chest pain, shortness of breath, abdominal pain, dizziness or lightheadedness, diarrhea vomiting. Review of systems otherwise negative. Labs and vitals reviewed. She had a stress test this morning which is abnormal. Cardiology will be consulted. Vitals/I&O's: Vital Signs Temp Pulse Resp BP Pulse Ox 98.3 F 63 17 133/83 H 96 10/06/18 09:01 10/06/18 09:01 10/06/18 09:01 10/06/18 09:01 10/06/18 09:01 Oxygen Flow Rate (L/min) 2 Oxygen Delivery Method Room Air Weight: 200 lb 6.403 oz Body Mass Index (BMI) 28.7 Finger Stick Blood Glucose 237 Intake and Output for Last 24 Hours 10/04/18 10/05/18 10/06/18 23:59 23:59 23:59 Intake Total 840 / 840 600 / 600 Output Total 1150 / 1150 Balance -310 / -310 600 / 600 General: Alert, Oriented x3, Cooperative, No apparent distress HEENT: Atraumatic, PERRLA, EOMI, Normocephalic, - - redness of both conjuctivae, which is chronic Oral: Moist Mucosa Neck: Supple, No JVD, Negative Carotid Bruits Lungs: Clear to auscultation, Normal air movement, No rhonchi, No wheeze, No rales Cardiovascular: Regular rate, Regular Rhythm, Normal S1, Normal S2, No murmurs Abdomen: Bowel Sounds Present, Soft, Non Tender, Non-Distended, No Hepato-splenomegaly Extremities: No clubbing, No cyanosis, No edema, Capillary Refill Less than 3 Seconds Skin: No rashes, No breakdown Musculoskeletal: No Tenderness to Palpation of Joints or Extremities Lymphatic: No Cervical, Supraclavicular, or Inguinal Adenopathy Neurological: Cranial nerves II-XII grossly intact, Neuro grossly intact, Motor Exam 5/5 strength throughout Psych/Mental Status: Normal Affect, Appropriate, Alert and oriented to time, place, person, mood and affect Laboratory Results 10/05/18 10:12: Troponin I < 0.015 10/05/18 12:40: Troponin I < 0.015 10/05/18 17:02: POC Glucose 213 H 10/06/18 04:39: WBC 5.4, RBC 4.66, Hgb 14.0, Hct 41.9, MCV 89.9, MCH 30.0, MCHC 33.4, RDW 12.8, RDW Differential 41.3, Plt Count 100 L, MPV 12.5 H, Immature Gran % (Auto) 0.200, Neut % (Auto) 50.6, Lymph % (Auto) 37.3, [place] % (Auto) 9.4, Eos % (Auto) 1.8, Baso % (Auto) 0.7, Absolute Neuts (auto) 2.7, Absolute Lymphs (auto) 2.02, Total Counted Not Reportable 10/06/18 04:39: Sodium 144, Potassium 4.1, Chloride 108 H, Carbon Dioxide 27.0, Anion Gap 9, BUN 20 H, Creatinine 0.97, Estim Creat Clear Calc 79.44, Est GFR (MDRD) Af Amer 100, Est GFR (MDRD) Non-Af 83, BUN/Creatinine Ratio 20.6 H, Glucose 179 H, Calcium 8.4 L 10/06/18 04:39: PT 14.1, INR 1.1, APTT 26.2 Current Medications Acetaminophen (Tylenol) 650 mg PO Q6H PRN PRN PRN Reason: PAIN Last Admin: 10/06/18 09:07 Dose: 650 mg Amlodipine Besylate (Norvasc) 5 mg PO DAILY [facility] Last Admin: 10/06/18 09:03 Dose: 5 mg Artificial Tears (Tears Naturale, Artificial Tears) 1 drop EACH EYE BID [facility] Last Admin: 10/06/18 09:04 Dose: 1 drop Aspirin (Ecotrin) 81 mg PO QODAY@0800 [facility] Last Admin: 10/06/18 05:14 Dose: 81 mg Brimonidine Tartrate (Brimonidine 0.2% 5ml Bottle) 1 drop EACH EYE BID [facility] Last Admin: 10/06/18 09:04 Dose: 1 drop Docusate Sodium (Colace) 100 mg PO DAILY [facility] Last Admin: 10/06/18 09:02 Dose: 100 mg Dorzolamide HCl (Trusopt) 1 drop RIGHT EYE TID [facility] Last Admin: 10/06/18 05:15 Dose: 1 drop Enoxaparin Sodium (Lovenox) 40 mg SC DAILY@1000 [facility] Last Admin: 10/06/18 09:02 Dose: 40 mg Erythromycin () 1 applic LEFT EYE QHS [facility] Last Admin: 10/05/18 22:14 Dose: 1 applicatio Gabapentin (Neurontin) 300 mg PO TID [facility] Last Admin: 10/06/18 05:14 Dose: 300 mg Glimepiride (Amaryl) 4 mg PO DAILY@0800 [facility] Last Admin: 10/06/18 09:02 Dose: 4 mg Latanoprost (Xalatan Opthalmic) 1 drop EACH EYE QHS [facility] Last Admin: 10/05/18 22:15 Dose: Not Given Levothyroxine Sodium (Synthroid) 125 mcg PO DAILY@0600 [facility] Last Admin: 10/06/18 05:14 Dose: 125 mcg Magnesium Hydroxide (Milk Of Magnesia) 30 ml PO DAILY PRN PRN PRN Reason: Constipation Nitroglycerin (Nitrostat) 0.4 mg SUBLINGUAL Q5M PRN PRN Reason: CARDIAC/CHEST PAIN Pantoprazole Sodium (Protonix) 40 mg PO DAILY [facility] Last Admin: 10/06/18 09:03 Dose: 40 mg Promethazine HCl (Phenergan Tablet) 25 mg PO Q4H PRN PRN PRN Reason: NAUSEA Sodium Chloride () 5 - 15 ml IV UD PRN PRN Reason: SALINE FLUSH Last Admin: 10/05/18 23:28 Dose: 10 ml Timolol Maleate (Timoptic) 1 drop EACH EYE BID [facility] Last Admin: 10/06/18 09:04 Dose: 1 drop Medical Necessity - Tobacco Use Smoking Status: Light Smoker (<10/day) Tobacco Use: Cigars Assessment/Plan 63-year-old male admitted with a complaint of chest pain. 1. Chest pain to rule out ACS chest pain has resolved troponins x 3 were negative stress test:post rest myocardial perfusioin changes concerning for area of stress induced myocardial ischemia involvin portions of basal to mid inferior segments. LVEF is 58% on aspirin and SL nitroglycerin prn cardiology consult placed 2. Diabetes mellitus: on glimepiride and metformin. ISS. Accuchecks ACHS. Metformin currently on hold 3. Hypertension: controlled. On amlodipine 4. Chronic glaucoma: Likely open-angle glaucoma. On timolol and brimonidine as well as brinzolamide eyedrops. 5. Chronic pain syndrome: On gabapentin DVT prophylaxis: Lovenox Code Visit OBSV E&M: 97131 Subsequent observation care L3
--- NOTE | 2018-10-06 10:37 | PN_ITS ---
Subjective: Patient seen and examined. He had no complaints. Chest pain had not recurred. He denied any fever or chills, cough or chest pain, shortness of breath, abdominal pain, dizziness or lightheadedness, diarrhea vomiting. Review of systems otherwise negative. Labs and vitals reviewed. She had a stress test this morning which is abnormal. Cardiology will be consulted. Vitals/I&O's: Vital Signs Temp Pulse Resp BP Pulse Ox 98.3 F 63 17 133/83 H 96 10/06/18 09:01 10/06/18 09:01 10/06/18 09:01 10/06/18 09:01 10/06/18 09:01 Oxygen Flow Rate (L/min) 2 Oxygen Delivery Method Room Air Weight: 200 lb 6.403 oz Body Mass Index (BMI) 28.7 Finger Stick Blood Glucose 237 Intake and Output for Last 24 Hours 10/04/18 10/05/18 10/06/18 23:59 23:59 23:59 Intake Total 840 / 840 600 / 600 Output Total 1150 / 1150 Balance -310 / -310 600 / 600 General: Alert, Oriented x3, Cooperative, No apparent distress HEENT: Atraumatic, PERRLA, EOMI, Normocephalic, - - redness of both conjuctivae, which is chronic Oral: Moist Mucosa Neck: Supple, No JVD, Negative Carotid Bruits Lungs: Clear to auscultation, Normal air movement, No rhonchi, No wheeze, No rales Cardiovascular: Regular rate, Regular Rhythm, Normal S1, Normal S2, No murmurs Abdomen: Bowel Sounds Present, Soft, Non Tender, Non-Distended, No Hepato- splenomegaly Extremities: No clubbing, No cyanosis, No edema, Capillary Refill Less than 3 Seconds Skin: No rashes, No breakdown Musculoskeletal: No Tenderness to Palpation of Joints or Extremities Lymphatic: No Cervical, Supraclavicular, or Inguinal Adenopathy Neurological: Cranial nerves II-XII grossly intact, Neuro grossly intact, Motor Exam 5/5 strength throughout Psych/Mental Status: Normal Affect, Appropriate, Alert and oriented to time, place, person, mood and affect Laboratory Results 10/05/18 10:12: Troponin I < 0.015 10/05/18 12:40: Troponin I < 0.015 10/05/18 17:02: POC Glucose 213 H 10/06/18 04:39: WBC 5.4, RBC 4.66, Hgb 14.0, Hct 41.9, MCV 89.9, MCH 30.0, MCHC 33.4, RDW 12.8, RDW Differential 41.3, Plt Count 100 L, MPV 12.5 H, Immature Gran % (Auto) 0.200, Neut % (Auto) 50.6, Lymph % (Auto) 37.3, [place] % (Auto) 9.4, Eos % (Auto) 1.8, Baso % (Auto) 0.7, Absolute Neuts (auto) 2.7, Absolute Lymphs (auto) 2.02, Total Counted Not Reportable 10/06/18 04:39: Sodium 144, Potassium 4.1, Chloride 108 H, Carbon Dioxide 27.0, Anion Gap 9, BUN 20 H, Creatinine 0.97, Estim Creat Clear Calc 79.44, Est GFR (MDRD) Af Amer 100, Est GFR (MDRD) Non-Af 83, BUN/Creatinine Ratio 20.6 H, Glucose 179 H, Calcium 8.4 L 10/06/18 04:39: PT 14.1, INR 1.1, APTT 26.2 Current Medications Acetaminophen (Tylenol) 650 mg PO Q6H PRN PRN PRN Reason: PAIN Last Admin: 10/06/18 09:07 Dose: 650 mg Amlodipine Besylate (Norvasc) 5 mg PO DAILY [facility] Last Admin: 10/06/18 09:03 Dose: 5 mg Artificial Tears (Tears Naturale, Artificial Tears) 1 drop EACH EYE BID [facility] Last Admin: 10/06/18 09:04 Dose: 1 drop Aspirin (Ecotrin) 81 mg PO QODAY@0800 [facility] Last Admin: 10/06/18 05:14 Dose: 81 mg Brimonidine Tartrate (Brimonidine 0.2% 5ml Bottle) 1 drop EACH EYE BID [facility] Last Admin: 10/06/18 09:04 Dose: 1 drop Docusate Sodium (Colace) 100 mg PO DAILY [facility] Last Admin: 10/06/18 09:02 Dose: 100 mg Dorzolamide HCl (Trusopt) 1 drop RIGHT EYE TID [facility] Last Admin: 10/06/18 05:15 Dose: 1 drop Enoxaparin Sodium (Lovenox) 40 mg SC DAILY@1000 [facility] Last Admin: 10/06/18 09:02 Dose: 40 mg Erythromycin () 1 applic LEFT EYE QHS [facility] Last Admin: 10/05/18 22:14 Dose: 1 applicatio Gabapentin (Neurontin) 300 mg PO TID [facility] Last Admin: 10/06/18 05:14 Dose: 300 mg Glimepiride (Amaryl) 4 mg PO DAILY@0800 [facility] Last Admin: 10/06/18 09:02 Dose: 4 mg Latanoprost (Xalatan Opthalmic) 1 drop EACH EYE QHS [facility] Last Admin: 10/05/18 22:15 Dose: Not Given Levothyroxine Sodium (Synthroid) 125 mcg PO DAILY@0600 [facility] Last Admin: 10/06/18 05:14 Dose: 125 mcg Magnesium Hydroxide (Milk Of Magnesia) 30 ml PO DAILY PRN PRN PRN Reason: Constipation Nitroglycerin (Nitrostat) 0.4 mg SUBLINGUAL Q5M PRN PRN Reason: CARDIAC/CHEST PAIN Pantoprazole Sodium (Protonix) 40 mg PO DAILY [facility] Last Admin: 10/06/18 09:03 Dose: 40 mg Promethazine HCl (Phenergan Tablet) 25 mg PO Q4H PRN PRN PRN Reason: NAUSEA Sodium Chloride () 5 - 15 ml IV UD PRN PRN Reason: SALINE FLUSH Last Admin: 10/05/18 23:28 Dose: 10 ml Timolol Maleate (Timoptic) 1 drop EACH EYE BID [facility] Last Admin: 10/06/18 09:04 Dose: 1 drop Medical Necessity - Tobacco Use Smoking Status: Light Smoker (<10/day) Tobacco Use: Cigars Assessment/Plan 63-year-old male admitted with a complaint of chest pain. 1. Chest pain to rule out ACS * chest pain has resolved * troponins x 3 were negative * stress test:post rest myocardial perfusioin changes concerning for area of stress induced myocardial ischemia involvin portions of basal to mid inferior segments. LVEF is 58% * on aspirin and SL nitroglycerin prn * cardiology consult placed * * 2. Diabetes mellitus: on glimepiride and metformin. ISS. Accuchecks ACHS. Metformin currently on hold 3. Hypertension: controlled. On amlodipine 4. Chronic glaucoma: Likely open-angle glaucoma. On timolol and brimonidine as well as brinzolamide eyedrops. 5. Chronic pain syndrome: On gabapentin DVT prophylaxis: Lovenox Code Visit OBSV E&M: 40516 Subsequent observation care L3
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
--- NOTE | 2018-10-06 11:48 | ECHOCS_ITS ---
Reason For Study: CAD Procedure This was a 2D Doppler, Color Flow transthoracic echocardiogram. Exam performed portable in patient room. Left Ventricle Normal size and thickness. The estimated ejection fraction is 65 %. Normal diastology for age. No regional wall motion abnormalities noted. Right Ventricle Normal size and thickness. Normal systolic function. Atria Normal left atrium. Normal right atrium. Normal atrial septum. Mitral Valve The mitral valve is structurally normal. No prolapse or stenosis seen. Tricuspid Valve Normal tricuspid valve. Trivial tricuspid valve insufficiency. Right ventricular systolic pressure estimated to be 32 mmHg. Aortic Valve Normal aortic valve. Trisinus/trileaflet aortic valve. Pulmonic Valve Normal pulmonic valve. Great Vessels Normal aortic root. Normal arch. Normal inferior vena cava. Inferior vena cava collapse with sniff. Pericardium/Pleural No pericardial effusion. MMode/2D Measurements & Calculations LVIDd: 3.9 cm IVSd: 1.2 cm Ao root diam: 3.4 cm LVIDs: 2.3 cm LVPWd: 1.1 cm RVDd: 2.9 cm FS: 40.7 % LAV(MOD-bp): 43.7 ml EDV(MOD-sp4): 82.0 ml EDV(MOD-sp2): 86.8 ml LAV(MOD-bp) Indexed: 20.9 ml/m2 ESV(MOD-sp4): 34.0 ml EF(MOD-sp2): 59.8 % LAV(MOD-sp2): 48.6 ml EF(MOD-sp4): 58.5 % LAV(MOD-sp4): 38.4 ml SV(MOD-sp4): 48.0 ml SV(MOD-sp2): 51.9 ml LA A4 area: 16.7 cm2 LA dimension(2D): 3.8 cm RA A4 area: 11.3 cm2 Doppler Measurements & Calculations MV E max rakan: 85.0 cm/sec Lat Peak E' Rakan: 10.9 cm/sec Med Peak E' Rakan: 7.2 cm/sec MV A max rakan: 64.2 cm/sec E/E' lat: 7.8 E/E' med: 11.8 MV E/A: 1.3 Ao V2 max: 129.9 cm/sec LV V1 max: 103.4 cm/sec PA V2 max: 124.0 cm/sec Ao max P.7 mmHg LV V1 max P.3 mmHg TR max rakan: 260.8 cm/sec TR max P.2 mmHg Interpretation Summary The estimated ejection fraction is 65 %. Normal diastology for age. Trivial tricuspid valve insufficiency. Right ventricular systolic pressure estimated to be 32 mmHg. Compared to echo report dated 05/06/2005, no appreciable changes noted. Ordering Physician: Yefri Dick Referring Physician: Trent Head M.D. Performed By: Lyubov Rios RDCS
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
--- NOTE | 2018-10-06 13:27 | CASEMGMT ---
According to the [facility] website, the following are in-network tertiary facilities: [facility], [facility], [facility], [facility], [facility], [facility], [facility], [facility], and . Larissa BRIONES CM
[2018-10-06] MEDS: Clopidogrel Bisulfate 300 MG Tablet PO (16:45)
[2018-10-06] MEDS: Morphine 2 MG/ML Syringe 1 MG IV (20:20)
[2018-10-06] MEDS: 0.9% NaCl Peripheral Flush Adult/Peds IV (20:24)
[2018-10-06] MEDS: proMETHazine 25 MG Tablet PO (20:24)
[2018-10-06 21:17] LABS: Bacteria 0 SEEN /hpf (None Seen); Mucous, Urine 0 SEEN /hpf (<or=2+); Red Blood Cells-Urine 0 SEEN /hpf (0-5); Squamous Epithelial Cells - UA 0 SEEN /hpf (0-5); White Blood Cells 0 SEEN /hpf (0-5)
[2018-10-06 21:35] LABS: Color, Urine Straw (Yellow); Glucose, Dipstick 1000 mg/dl (Normal); Ketone-Dipstick Negative (Negative); Leukocyte Esterase-Dipstick Negative /ul (Negative); Nitrite-Dipstick Negative (Negative); Occult Blood-Urine Negative /ul (Negative); Protein-Dipstick Negative (Negative); Urine Bilirubin Dipstick Negative (Negative); Urine Clarity Clear (Clear); Urine Urobilinogen Normal (Normal)
[2018-10-06] MEDS: Erythromycin Base 1 OPTH.TUBE 1 APPLIC LEFT EYE (22:00)
[2018-10-07] VITALS (13 sets, daily range): BP systolic 107–145; BP diastolic 66–91; PULSE 51–63; RESP 14–16; TEMP 36.6–36.9; O2SAT 94–99
[2018-10-07 04:55] LABS: Absolute Lymphocyte Count 1.71 X10^3/ul (0.83-4.51); Absolute Neutrophil Count 2.6 X10^3/uL (2.0-7.7); Basophil# 0.03 X10^3/uL; Basophil% 0.6 % (0-1); Eosinophils% 2.1 % (0-5); Hematocrit 41.5 % (40-54); Hemoglobin 14.5 g/dl (13.0-16.5); Lymphocyte # 1.71 X10^3/ul (4.0); Lymphocyte % 35.6 % (19-41); Mean Corp Hgb Conc 34.9 g/gl (32-36); Mean Corpuscular Hgb 30.9 pg (27.0-32.0); Mean Corpuscular Volume 88.3 fL (80-94); Mean Platelet Vol. 11.7 fl (6.2-12.0); Monocyte# 0.36 X10^3/uL; Monocyte% 7.5 % (0-10); Neutrophil # 2.59 X10^3/uL (2.7-7.7); POSITIVE COUNT NO; POSITIVE DIFFERENTIAL NO; POSITIVE MORPHOLOGY NO; Platelet Count 96 K/mm3 (150-450); RBC Distribution Width CV 12.5 % (11.6-14.6); RBC Distribution Width SD 39.8 fl (35.1-43.9); White Blood Count 4.8 K/mm3 (4.4-11.0)
--- NOTE | 2018-10-07 05:00 | EKG12_ITS ---
Test Reason : AM EKG Blood Pressure : / mmHG Vent. Rate : 055 BPM Atrial Rate : 055 BPM P-R Int : 180 ms QRS Dur : 074 ms QT Int : 422 ms P-R-T Axes : 031 -37 039 degrees QTc Int : 403 ms Sinus bradycardia Left axis deviation Inferior infarct , age undetermined Abnormal ECG When compared with ECG of 06-OCT-2018 05:24, MANUAL COMPARISON REQUIRED, DATA IS UNCONFIRMED Confirmed by SCAR ALDRIDGE, MAYRA ([id number]), editor farm journal INDIGO LEMA ([id number]) on 10/11/2018 5:37:01 PM Referred By: DR WILKINSON Confirmed By:MAYRA ABBOTT MD
[2018-10-07 05:04] LABS: Partial Thromboplast Time 25.6 Seconds (24.1-36.2)
[2018-10-07 05:10] LABS: Anion Gap 8 (5-15); BUN 12 mg/dL (7-18); Calcium,Total 8.4 mg/dL (8.5-10.1); Chloride 107 mmol/L (98-107); EST Glomerular Filtration Rate 80 mL/min (>60); Est Glom Filt Rate - Afr Amer 97 mL/min (>60); Estimated Creatinine Clearance 77.06 ml/min; Glucose 218 mg/dL (74-106); Potassium 3.6 mmol/L (3.5-5.1); Sodium Level 142 mmol/L (136-145)
[2018-10-07 05:11] LABS: Prothrombin Time (Protime)PT. 12.9 SECONDS (11.7-14.9)
[2018-10-07] MEDS: Clopidogrel Bisulfate 75 MG Tablet PO (05:41)
[2018-10-07] MEDS: Levothyroxine 125 MCG Tablet PO (05:41)
[2018-10-07] MEDS: amLODIPine 5 MG Tablet PO (05:42)
[2018-10-07] MEDS: Gabapentin 300 MG Capsule PO ×2 (05:43→14:07)
[2018-10-07] MEDS: 0.9% Normal Saline 1,000 ML 15 ML IV (05:44)
[2018-10-07] MEDS: Dorzolamide 2% 10ml Bottle 1 DRP RIGHT EYE ×2 (05:45→14:08)
[2018-10-07] MEDS: Morphine 2 MG/ML Syringe 1 MG IV (05:54)
[2018-10-07] MEDS: 0.9% NaCl Peripheral Flush Adult/Peds IV ×3 (05:56→08:58)
[2018-10-07] MEDS: BRIMONIDINE 0.2% 5ML BOTTLE 1 DRP EACH EYE (06:02)
[2018-10-07] MEDS: Timolol 0.5% 5ML OPTH.BTL 1 DRP EACH EYE (06:04)
[2018-10-07] MEDS: DiphenhydrAMINE 25 MG Capsule 50 MG PO (08:56)
--- NOTE | 2018-10-07 09:42 | CL.D_ITS ---
Patient Name: ROBERT ART Study Date: 10/07/2018 Performing: Yefri Dick MD Ht: 70.07 inches 178 cm : 1955 Wt: 200.62 lbs 91 kg Age: 63 Gender: male BSA: 2.09 PROCEDURE(S) PERFORMED [id number]/LV CLINICAL PROFILE AND INDICATIONS Indications: New Onset Angina <= 2 months, Suspected CAD Heart Failure: None Stress/Imaging Stress Test w/SPECT MPI: Yes Result: Positive Low RiskStress Test with SPECT MPI: Positive Low Risk Angina Classification Anginal Classification w/in 2 Weeks: CCS III CAD Presentations: Unstable angina. Comorbidities/Risk Factors: Current/Recent Smoker (< 1year) Hypertension Dyslipidemia CONCLUSIONS Normal LV size, wall motion,and systolic function Non obstructive coronary arteries Complete resolution of mid LAD narrowing with IC NTG, as well as slow coronary flow suggesting high v ascular/capillary tone. RECOMMENDATIONS D/c plavix and amlopine, continue baby asa, start imdur 30mg po daily. F/u with Dr Dick. Manual sheath removal. D/w Dr Arriaga. DESCRIPTION OF PROCEDURE The patient arrived to the procedure lab. The risks and benefits of the procedure as well as a full d escription of our services here and current unavailability of surgical backup were fully explained to the patient and/or their significant other prior to the catheterization. The Timeout was completed, verifying the correct patient and procedure. The patient's procedural site was prepped and draped in the usual fashion. Local anesthetic was given subcutaneously to right groin region with Lidocaine 2%. Using a modified Seldinger technique, arterial access was obtained via the right femoral artery, a 4 Fr sheath was inserted Left Coronary Artery selective angiography was performed in multiple views us ing a 4 Fr. JL5 catheter. Right Coronary Artery selective angiography was then performed in multiple views using a 4 Fr. 3DRC catheter. Left Ventriculography was performed in IRIZARRY projection using a 4 Fr . Pigtail catheter. LV to AO pullback pressures were then recorded.The arterial sheath was pulled and manual compression applied until hemostasis is achieved. CORONARY ANGIOGRAPHY DOMINANCE: Right Dominant LEFT HEART ASSESSMENT Left Ventricular Ejection Fraction: by LV Gram 65 % Normal LV wall motion Normal Left Ventricular systolic function LEFT MAIN: Angiographically normal LEFT ANTERIOR DECENDING ARTERY: PROX LAD: Mild luminal irregularities CIRCUMFLEX ARTERY: Angiographically normal RIGHT CORONARY ARTERY: MID RCA: Mild luminal irregularities less than 30% RT PDA: Proximal - Angiographically normal COMPLICATIONS No Complications PROCEDURE MEDICATIONS Oxygen: 2 L/min via nasal cannula Baby Aspirin (81mg) 1 Tabs PO @ 10/07/2018 09:09:50 Nitro 200 mcg IC 10/07/2018 09:21:59 SUMMARY OF HEMODYNAMIC DATA Time AIR REST ECG 09:08:18 AO 128/74 (96) SA 09:19:41 LV 115/-20, 0 09:26:43 LV 114/-17, 1 09:26:50 LVp 112/-19, -1 09:26:56 AOp 102/66 (81) 09:27:01 Signed By Yefri Dick MD On 10/07/2018 09:41:49 Yefri Dick MD
[2018-10-07] MEDS: Docusate Sodium 100 MG Capsule PO (11:04)
[2018-10-07] MEDS: Glimepiride 4 MG Tablet PO (11:04)
[2018-10-07] MEDS: Pantoprazole Sodium 40 MG Tablet PO (11:04)
[2018-10-07] MEDS: Isosorbide Mononitrate 30 MG Tablet PO (11:06)
[2018-10-07] MEDS: Acetaminophen 325 MG Tablet 650 MG PO (14:07)
--- NOTE | 2018-10-07 14:14 | NURSING ---
Ambulated patient to and around small loop of hallway before returning to bed. Groin site soft and without any complication.
--- NOTE | 2018-10-07 15:01 | DCINST_ITS ---
- Discharge Diagnoses Current Active Problems: Current Active and Chronic Problems (Last Reviewed 10/13/17 @ 13:04 by Winnie Jordan) Unstable angina (Acute) Chest pain (Acute) Abnormal EKG (Acute) Abnormal stress test (Acute) You will use the following diet at home:: Cardiac Your food should be the consistency of: Regular Your liquids should be the consistency of: Regular/Thin Discharge Activity: Return to Normal Activity Weight Bearing Status: Weight bearing as tolerated Call your doctor if you observe: Chest pain Instructions: Discharge Instructions for Angina, Discharge Instructions: Taking Nitrates Allergies/Adverse Reactions: Allergies Sulfa (Sulfonamide Antibiotics) Allergy (Mild, Verified 10/05/18 06:54) Hives acetaminophen [From Percocet] Adverse Reaction (Mild, Verified 10/05/18 06:54) anxious oxycodone [From Percocet] Adverse Reaction (Mild, Verified 10/05/18 06:54) anxious Medications to take at Discharge Levothyroxine [Synthroid] 125 mcg PO DAILY 10/26/13 Amlodipine [Norvasc] 5 mg PO DAILY 11/25/14 Brimonidine Tartrate/Timolol [Combigan Eye Drops] 1 drp EACH EYE BID 05/27/16 Brinzolamide [Azopt] 1 drp RIGHT EYE TID 05/27/16 Metformin HCl [Glucophage] 1,000 mg PO BID 05/27/16 Erythromycin Ophthalmic 1 applic LEFT EYE QHS 11/02/17 Glimepiride [Amaryl] 4 mg PO DAILY 11/02/17 Latanoprostene Bunod [Vyzulta] 1 drop EACH EYE QHS 11/02/17 Omeprazole 40 mg PO DAILY 11/02/17 Propylene Glycol/Peg 400/Pf [Systane 0.3-0.4% Eye Drop] 1 each EACH EYE BID 11/02/17 proMETHazine tablet [Phenergan tablet] 25 mg PO Q4H PRN PRN #10 tab 11/09/17 Docusate Sodium [Colace] 100 mg PO DAILY 10/05/18 Gabapentin [Neurontin] 300 mg PO TID 10/05/18 Aspirin E.C. [Ecotrin] 81 mg PO QODAY #30 tablet 10/07/18 Atorvastatin Calcium [Lipitor] 40 mg PO QHS #30 tablet 10/07/18 Isosorbide Mononitrate [Imdur] 30 mg PO DAILY #30 tablet 10/07/18 The following prescriptions were given: Aspirin E.C. [Ecotrin] 81 mg PO QODAY #30 tablet Atorvastatin Calcium [Lipitor] 40 mg PO QHS #30 tablet Isosorbide Mononitrate [Imdur] 30 mg PO DAILY #30 tablet Primary Care Physician: Grabiel Head [Primary Care Provider] - Please follow up with your Primary Care Physician in: one week Test Results: Test results from this visit will be discussed in further detail at your follow- up appointment, if applicable. Please Follow Up With: Yefri Dick MD When: 1-2 weeks Proposed Discharge Date: 10/07/18
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
== END 2018-10-07 15:00 | disposition home or self-care (01) ==
LOC: ED 08:10 → PCU 12:49
PROVIDERS: Emergency Medicine; Internal Medicine Cardiovascular Disease; Admitting Provider Student in an Organized Health Care Education/Training Program; Emergency Provider Emergency Medicine; Visit Provider Student in an Organized Health Care Education/Training Program
DX: I20.0 Unstable angina (principal); R07.89 Other chest pain; E11.9 Type 2 diabetes mellitus without complications; I10 Essential (primary) hypertension; H40.9 Unspecified glaucoma; F17.290 Nicotine dependence, other tobacco product, uncomplicated; G89.4 Chronic pain syndrome; R94.39 Abnormal result of other cardiovascular function study; R94.31 Abnormal electrocardiogram [ECG] [EKG]; Z79.899 Other long term (current) drug therapy; Z79.82 Long term (current) use of aspirin; Z79.84 Long term (current) use of oral hypoglycemic drugs; E78.5 Hyperlipidemia, unspecified; I07.1 Rheumatic tricuspid insufficiency
CPT/HCPCS: 36415; 70450; 71045; 71275; 74175; 78452; 80048; 80076; 81001; 82962; 83690; 84484; 85025; 85610; 85730; 93005; 93017; 93306; 93458; 96372; 96374; 96375; 96376; 99218; 99285; 99406; A9500; J7030; Q9967; A4216; C1769; C1894; C8929; G0378; J2405

== ENCOUNTER → 2018-10-27 14:11 | Outpatient (CLI) | payer BC, SELFPAY ==
[2018-10-27 13:39] VITALS: BMI 29.9
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
[2018-10-27 15:04] LABS: Erythrocyte Sedimentation Rate 4 mm/hr (0-20)
[2018-10-27 15:32] LABS: CRP < 2.90 mg/L (0.0-3.0)
[2018-10-31 14:07] LABS: Cytoplasmic Ab (C-ANCA) <1:20 titer (Neg:<1:20)
[2018-11-01 08:55] LABS: ANTINUCLEAR ANTIBODIES DIRECT Negative (Negative); Perinuclear Ab (P-ANCA) <1:20 titer (Neg:<1:20)
== END ==
PROVIDERS: Referring Provider Psychiatry & Neurology Neurology; Visit Provider Psychiatry & Neurology Neurology
DX: M31.6 Other giant cell arteritis (principal); M54.2 Cervicalgia
CPT/HCPCS: 36415; 72052; 85652; 86038; 86140; 86256

== ENCOUNTER → 2018-11-03 12:16 | Outpatient (CLI) | payer BC, SELFPAY ==
[2018-10-27 13:39] VITALS: BMI 29.9
[2018-11-03 13:18] LABS: AST(SGOT) 45 U/L (15-37); Alanine Aminotransfer ALT/SGPT 87 U/L (16-61); Albumin, Serum 4.1 g/dL (3.2-5.0); Alkaline Phosphatase 89 U/L (45-117); Bilirubin, Direct 0.19 mg/dL (0.00-0.30); Cholesterol 107 mg/dL (200); Globulin 3.5 g/dL (2.2-4.2); High Density Lipoprotein 40 mg/dL; Protein, Total 7.6 g/dL (6.4-8.2); Triglycerides 130 mg/dL; Very Low Density Lipoprotein 26 mg/dL (5-40)
== END ==
PROVIDERS: Referring Provider Internal Medicine Cardiovascular Disease; Visit Provider Internal Medicine Cardiovascular Disease
DX: E78.5 Hyperlipidemia, unspecified (principal)
CPT/HCPCS: 36415; 80061; 80076

== ENCOUNTER → 2019-02-07 13:13 | Outpatient (CLI) | payer BC, SELFPAY ==
[2018-10-27 13:39] VITALS: BMI 29.9
[2019-02-07 14:13] LABS: Absolute Lymphocyte Count 1.81 X10^3/ul (0.83-4.51); Absolute Neutrophil Count 3.3 X10^3/uL (2.0-7.7); Basophil# 0.03 X10^3/uL; Basophil% 0.5 % (0-1); Eosinophil# 0.07 X10^3/uL; Eosinophils% 1.2 % (0-5); Hematocrit 42.7 % (40-54); Hemoglobin 14.6 g/dl (13.0-16.5); Lymphocyte # 1.81 X10^3/ul (4.0); Lymphocyte % 31.5 % (19-41); Mean Corp Hgb Conc 34.2 g/gl (32-36); Mean Corpuscular Volume 87.9 fL (80-94); Mean Platelet Vol. 12.8 fl (6.2-12.0); Monocyte# 0.49 X10^3/uL; Monocyte% 8.5 % (0-10); Neutrophil # 3.33 X10^3/uL (2.7-7.7); Platelet Count 131 K/mm3 (150-450); RBC Distribution Width CV 13.2 % (11.6-14.6); RBC Distribution Width SD 42.4 fl (35.1-43.9); Red Blood Count 4.86 M/mm3 (4.6-6.2); White Blood Count 5.8 K/mm3 (4.4-11.0)
[2019-02-07 14:15] LABS: POSITIVE COUNT NO; POSITIVE DIFFERENTIAL NO; POSITIVE MORPHOLOGY NO
[2019-02-07 14:35] LABS: Valproic Acid (Depakene) Level 29 ug/mL (50-100)
[2019-02-07 14:50] LABS: ALB/GLOB Ratio 1.1 RATIO (0.9-2.4); AST(SGOT) 72 U/L (15-37); Alanine Aminotransfer ALT/SGPT 101 U/L (16-61); Albumin, Serum 3.6 g/dL (3.2-5.0); Alkaline Phosphatase 87 U/L (45-117); Anion Gap 10 (5-15); BUN 23 mg/dL (7-18); BUN/Creat Ratio 21.5 RATIO (10-20); Calcium,Total 8.8 mg/dL (8.5-10.1); Chloride 105 mmol/L (98-107); Creatinine, Serum 1.07 mg/dL (0.70-1.30); EST Glomerular Filtration Rate 74 mL/min (>60); Est Glom Filt Rate - Afr Amer 89 mL/min (>60); Globulin 3.2 g/dL (2.2-4.2); Glucose 370 mg/dL (74-106); Potassium 4.5 mmol/L (3.5-5.1); Protein, Total 6.8 g/dL (6.4-8.2); Sodium Level 140 mmol/L (136-145)
== END ==
PROVIDERS: Referring Provider Psychiatry & Neurology Neurology; Visit Provider Psychiatry & Neurology Neurology
DX: G43.119 Migraine with aura, intractable, without status migrainosus (principal); G47.33 Obstructive sleep apnea (adult) (pediatric); M54.2 Cervicalgia
CPT/HCPCS: 36415; 80053; 80164; 85025

== ENCOUNTER → 2019-02-22 12:37 | Outpatient (CLI) | payer BC, SELFPAY ==
[2019-02-14 13:02] VITALS: BMI 29.2
--- NOTE | 2019-02-22 13:20 | RAD_ITS ---
STUDY: SWALLOWING STUDY REASON FOR EXAM: Male, 63 years old. Dysphagia. Dyspnea. TECHNIQUE: The examination was performed with Speech Pathology in attendance. Under fluoroscopic observation, the patient ingested thin barium, thick barium, barium pudding, and barium coated cracker. FLUOROSCOPY TIME: 1:06 minutes/seconds. 1511 images were obtained. RADIOLOGIST INVOLVEMENT: Radiologist was present and providing direct supervision. COMPARISON: None. FINDINGS: The following was observed during swallowing of the various mixtures of barium: Thin Barium: There was no evidence of aspiration or laryngeal penetration. Barium Pudding: There was no evidence of aspiration or laryngeal penetration. Barium Coated Cracker: There was no evidence of aspiration or laryngeal penetration. RAD/Swallowing Function w/Video IMPRESSION: Normal tailored barium swallow study. No evidence of increased risk for aspiration. The swallow study findings were discussed with the patient by the speech pathologist at the conclusion of the examination. Please see speech pathology report for more information and recommendations. Electronically Signed: Deangelo Mora, at 13:56 EDT , Service support ,
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
== END ==
PROVIDERS: Referring Provider Surgery; Visit Provider Surgery
DX: R13.10 Dysphagia, unspecified (principal)
CPT/HCPCS: 74230; 92611

== ENCOUNTER → 2019-02-24 09:52 | Outpatient (CLI) | payer BC, SELFPAY ==
[2019-02-14 13:02] VITALS: BMI 29.2
[2019-02-24 11:15] LABS: Hemoglobin A1c 9.5 % (4.2-6.3)
== END ==
PROVIDERS: Referring Provider Family Medicine; Visit Provider Family Medicine
DX: R73.9 Hyperglycemia, unspecified (principal)
CPT/HCPCS: 36415; 83036

== ENCOUNTER 2019-03-05 02:56 | Emergency (ER) | payer BC, SELFPAY ==
[2019-02-14 13:02] VITALS: BMI 29.2
[2019-03-05 02:57] VITALS: BP 158/109; PULSE 64; RESP 18; TEMP 36.6; O2SAT 97; BMI 28.4
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
[2019-03-05] MEDS: HYDROmorphone 0.5 MG/0.5 ML SYRINGE IV (03:15)
[2019-03-05] MEDS: 0.9% Normal Saline 1,000 ML 999 ML IV (03:15)
[2019-03-05] MEDS: DiphenhydrAMINE 50 MG/ML Syringe 25 MG IV (03:15)
[2019-03-05] MEDS: Ketorolac 30 MG/ML Syringe IV (03:17)
[2019-03-05] MEDS: Metoclopramide 10 MG/2 ML Vial IV (03:18)
[2019-03-05 03:39] LABS: Erythrocyte Sedimentation Rate 7 mm/hr (0-20)
--- NOTE | 2019-03-05 03:42 | ED.DCSUM_ITS ---
- ER Visit Summary Date of Service: 03/05/19 Chief Complaint: Headache History of Present Illness: The patient is a 63 M with chronic recurrent headaches and history of glaucoma presents with worse headache than normal. This is the same presentation is his normal headaches, feels just the same, sees a neurologist but today is slightly worse. This was a gradual onset of headache that started yesterday and progressed. He has chronic vision changes but no new changes. He denies any nausea vomiting. No neck pain. No fever or chills. Physical Examination: Patient appears in some distress His bilateral injected conjunctiva, he tells me this is chronic. Moist mucous membranes, no obvious facial deformity No C-spine tenderness supple neck. Regular rate and rhythm without any obvious murmurs Clear lungs bilaterally speaking in full sentences without any obvious respiratory distress Abdomen soft and nontender no guarding or rebound Moves all extremities without any difficulty or pain. Skin does not show any obvious rashes or lesions, no trauma. Alert oriented ?3 with no gross focal deficit Emergency Department Course and Treatment: Intraocular pressure was done by me after tetracaine insertion. It was 19 with a good confidence interval, bilateral. ESR is negative. CT is normal. He received analgesia and IV fluids and he improved. I will discharge in stable condition Disposition: Discharge stable condition Impression: Cephalgia This note was generated with [facility] dictation software. It may contain incorrect words, spelling, and punctuation that were not noted in review of the chart prior to signing ED Disposition - Plan for ED Patient: Disposition: Home or Assisted Living Instructions: ED Cephalgia Unspecified Referrals: Grabiel Head [Primary Care Provider] - 3-5 Days
[2019-03-05] MEDS: HYDROcodone Bitartrate/Apap 5/325 Tablet PO (04:40)
[2019-03-05 04:43] VITALS: BP 129/89; PULSE 59; RESP 16; O2SAT 96
== END 2019-03-05 04:47 | disposition home or self-care (01) ==
PROVIDERS: Emergency Provider Emergency Medicine
DX: R51 Headache (principal); G89.29 Other chronic pain; H40.9 Unspecified glaucoma; E11.9 Type 2 diabetes mellitus without complications; I10 Essential (primary) hypertension; F17.290 Nicotine dependence, other tobacco product, uncomplicated; Z79.84 Long term (current) use of oral hypoglycemic drugs; Z79.82 Long term (current) use of aspirin; Z79.899 Other long term (current) drug therapy
CPT/HCPCS: 70450; 85652; 96361; 96374; 96375; 99284; J7030; A4216

== ENCOUNTER 2019-04-30 00:15 | Emergency (ER) | payer BC, SELFPAY ==
[2019-03-06 14:03] VITALS: BMI 28.4
[2019-04-30 00:20] VITALS: BP 165/108; PULSE 88; RESP 15; TEMP 37.2; O2SAT 98; BMI 27.1
--- NOTE | 2019-04-30 00:49 | ED.VISSUMM ---
- ER Visit Summary Date of Service: 04/30/19 Chief Complaint: Alcohol intoxication History of Present Illness: The patient is a 63 M who states he was drinking alcohol tonight. He complains of nausea which is been present for 1 year. He complains of head and face pain which has been chronic since last fall. He complains of difficulty breathing when he bends his neck forward due to his tracheostomy remotely. None of these are acute or new issues. It is unclear what prompted his emergency visit tonight. He denies any acute recent illness. No fevers abdominal pain vomiting. Physical Examination: Afebrile vitals unremarkable No distress Moist mucous membranes Heart regular rate and rhythm Lungs clear Abdomen soft nontender Alert Test Results: Not indicated Emergency Department Course and Treatment: I explained to the patient that given that his symptoms have been present for at least a year and he has been seeing his primary care physician for these without any new acute illness I do not feel there is any benefit to emergent diagnostic work-up or intervention here at this time. He vocalized understanding. He was given Zofran ODT for nausea. He was discharged. Treatment Plan: [] Disposition: Discharge Impression: Chronic nausea Alcohol intoxication This note was generated with [employer] dictation software. It may contain incorrect words, spelling, and punctuation that were not noted in review of the chart prior to signing ED Disposition - Plan for ED Patient: Referrals: Grabiel Head [Primary Care Provider] -
--- NOTE | 2019-04-30 00:51 | ED.DEP ---
ED Disposition - Plan for ED Patient: Instructions: Alcohol Intoxication Referrals: Grabiel Head [Primary Care Provider] -
[2019-04-30] MEDS: Ondansetron ODT 4 MG Tablet PO (01:02)
[2019-04-30 01:03] VITALS: BP 128/97; PULSE 93; RESP 15; O2SAT 92
--- NOTE | 2019-04-30 01:06 | EKG12_ITS ---
Test Reason : CP Blood Pressure : / mmHG Vent. Rate : 098 BPM Atrial Rate : 098 BPM P-R Int : 156 ms QRS Dur : 072 ms QT Int : 358 ms P-R-T Axes : 026 -61 015 degrees QTc Int : 457 ms Normal sinus rhythm Left axis deviation Inferior infarct (cited on or before 07-OCT-2018), age undetermined, cannot be excluded Abnormal ECG Confirmed by ROSA ALDRIDGE, BLACK ([id number]), manager editorial VITOR CHAPA ([id number]) on 05/03/2019 10:22:58 AM Referred By: LUC Confirmed By:BLACK LEE MD
== END 2019-04-30 01:22 | disposition home or self-care (01) ==
LOC: ED 00:58
PROVIDERS: Emergency Provider Emergency Medicine
DX: R11.0 Nausea (principal); F10.129 Alcohol abuse with intoxication, unspecified; R51 Headache; G89.29 Other chronic pain; I25.10 Atherosclerotic heart disease of native coronary artery without angina pectoris; E11.9 Type 2 diabetes mellitus without complications; K21.9 Gastro-esophageal reflux disease without esophagitis; Z79.84 Long term (current) use of oral hypoglycemic drugs; Z79.82 Long term (current) use of aspirin; Z79.899 Other long term (current) drug therapy; Z93.0 Tracheostomy status
CPT/HCPCS: 93005; 99284

== ENCOUNTER 2019-09-25 14:30 | Outpatient (RCR) | payer MEDICARE, BC, SELFPAY ==
[2019-05-22 14:32] VITALS: BMI 28.1
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
--- NOTE | 2019-09-25 15:34 | HP.PTDCSUM_ITS ---
HP - PT D/C Summary It has been my pleasure to treat ROBERT ART under orders from Bo Sahu MD, for the diagnosis of cervivalgia for a total of 9 visit(s). Discharge Date: Please see the following information for a summary of their discharge status. - Subjective Subjective: Pt reports that he is having surgery for a c-pap insertion on the 6th and he feels that he will need to be out of PT for awhile. He wishes to be discharged and will call Dr when he is released to exercise. Pt reports that some days he has no pain and other days it bothers him. Today is a good day. Dr Sahu will send him back when he can do exercises. - Pain Head pain Pain Intensity (Out of 10): 0 c-spine pain Pain Intensity (Out of 10): 0 - Overall Improvement % Improvement: 50 - Objective Objective/Function: c-spine AROM: Rot R 70% and L 80%, ext 25%, flexion 100%, Sb B 75% - Goals Goal 1:: I HEP Goal Progress: Goal Met Goal 2:: sit with upright posture during treatment sessions Goal Progress: Goal Met Goal 3:: Decrease neck pain to 1/10 with ADL's Goal Progress: Goal Met Goal 4:: Increase c-spine AROM by 25% each plane ( at the time of the eval: C- spine AROM: flexion 100, ext 10, SB L 50% and R 75%, Rotation to the L 50 and R 75%). Goal Progress: Not Progressing - Plan Plan: DC PT to HEP - D/C Information If there are questions or concerns regarding this patient's physical therapy, please feel free to call me at [phone]. Thank you for the referral of this patient. Sincerely, Darlene Penny, MPT
== END 2019-09-25 19:00 | disposition home or self-care (01) ==
LOC: PT 14:30
PROVIDERS: Referring Provider Psychiatry & Neurology Neurology; Visit Provider Psychiatry & Neurology Neurology
DX: M54.2 Cervicalgia (principal)
CPT/HCPCS: 97035; 97110; 97140; 97161; 97530

== ENCOUNTER 2019-10-04 05:20 | Emergency (ER) | payer MEDICARE, BC, SELFPAY ==
[2019-05-22 14:32] VITALS: BMI 28.1
[2019-10-04 05:22] VITALS: BP 159/112; PULSE 71; RESP 16; TEMP 36.6; O2SAT 94; BMI 30.2
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
[2019-10-04] MEDS: HYDROcodone Bitartrate/Apap 5/325 Tablet PO (05:53)
[2019-10-04 06:37] VITALS: PULSE 68; O2SAT 92
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
[2019-10-04] MEDS: Morphine 4 MG/ML Syringe SC (07:09)
[2019-10-04 07:38] VITALS: BP 144/95; PULSE 71; RESP 16; O2SAT 91
== END 2019-10-04 07:39 | disposition home or self-care (01) ==
PROVIDERS: Emergency Provider Emergency Medicine
DX: R51 Headache (principal); G47.33 Obstructive sleep apnea (adult) (pediatric); Z87.891 Personal history of nicotine dependence
CPT/HCPCS: 70450; 96372; 99283

== ENCOUNTER → 2019-11-14 15:08 | Outpatient (CLI) | payer MEDICARE, BC, SELFPAY ==
[2019-11-14 17:01] LABS: PSA,Total- Diagnostic 2.94 ng/mL (0.0-4.0)
== END ==
PROVIDERS: Referring Provider Urology; Visit Provider Urology
DX: N40.1 Benign prostatic hyperplasia with lower urinary tract symptoms (principal)
CPT/HCPCS: 36415; 84153

== ENCOUNTER → 2020-01-02 13:15 | Outpatient (CLI) | payer MEDICARE, BC, SELFPAY ==
[2019-11-23 15:29] VITALS: BMI 29.9
[2019-12-21 15:04] VITALS: BMI 29.9
--- NOTE | 2020-01-04 11:25 | PFT ---
INTRODUCTION: The patient is a 64-year-old male that presents for pulmonary function studies secondary to a diagnosis of shortness of breath. Respiratory therapy reports good patient effort. Bronchodilators were used during testing. INTERPRETATION: Forced expiration spirometry demonstrates no evidence of a large airways obstructive ventilatory defect. There was no significant response to aerosolized bronchodilators, based upon strict ATS criteria. Spirograms are of good quality and plateau normally. Body plethysmography was performed and revealed lung volumes to be within normal limits. Diffusing capacity by single breath CO was within normal limits at 94% of predicted. IMPRESSION: Grossly normal pulmonary function studies.
== END ==
PROVIDERS: Referring Provider Internal Medicine Cardiovascular Disease; Visit Provider Internal Medicine Cardiovascular Disease
DX: R06.02 Shortness of breath (principal); Z87.891 Personal history of nicotine dependence
CPT/HCPCS: 94060; 94726; 94729

== ENCOUNTER 2020-02-03 20:58 | Emergency (ER) | payer MEDICARE, BC, SELFPAY ==
[2019-12-21 15:04] VITALS: BMI 29.9
[2020-02-03 20:59] VITALS: BP 165/120; PULSE 98; RESP 18; TEMP 36.7; O2SAT 96; BMI 29.5
[2020-02-03 21:04] VITALS: PULSE 97; RESP 18; O2SAT 95
--- NOTE | 2020-02-03 21:10 | EKG12_ITS ---
Test Reason : CP Blood Pressure : / mmHG Vent. Rate : 094 BPM Atrial Rate : 094 BPM P-R Int : 152 ms QRS Dur : 068 ms QT Int : 342 ms P-R-T Axes : 014 -65 021 degrees QTc Int : 427 ms Normal sinus rhythm Left axis deviation Abnormal ECG Confirmed by SCAR ALDRIDGE, MAYRA ([id number]), editor magazine [employer] ([id number]) on 02/05/2020 3:05:19 PM Referred By: ARMIDA Confirmed By:MAYRA ABBOTT MD
[2020-02-03 21:17] VITALS: O2SAT 95
[2020-02-03 21:20] LABS: Absolute Lymphocyte Count 2.58 X10^3/uL (0.83-4.51); Absolute Neutrophil Count 5.6 X10^3/uL (2.0-7.7); Basophil# 0.06 X10^3/uL; Basophil% 0.7 % (0-1); Eosinophil# 0.11 X10^3/uL; Eosinophils% 1.2 % (0-5); Hematocrit 49.2 % (40-54); Hemoglobin 16.8 g/dL (13.0-16.5); Lymphocyte # 2.58 X10^3/ul (4.0); Lymphocyte % 28.1 % (19-41); Mean Corp Hgb Conc 34.1 g/dL (32-36); Mean Corpuscular Hgb 29.5 pg (27.0-32.0); Mean Corpuscular Volume 86.5 fL (80-94); Mean Platelet Vol. 12.3 fl (6.2-12.0); Monocyte# 0.78 X10^3/uL; Monocyte% 8.5 % (0-10); NRBC Flagged by Analyzer 0 % (0-5); Neutrophil # 5.63 X10^3/uL (2.7-7.7); Neutrophil % 61.2 % (47-70); Platelet Count 130 K/mm3 (150-450); RBC Distribution Width CV 13.2 % (11.6-14.6); RBC Distribution Width SD 41.2 fl (35.1-43.9); Red Blood Count 5.69 M/mm3 (4.6-6.2); White Blood Count 9.2 K/mm3 (4.4-11.0)
--- NOTE | 2020-02-03 21:22 | RAD_ITS ---
STUDY: X-RAY CHEST REASON FOR EXAM: Male, 64 years old. Chest pain TECHNIQUE: Frontal and lateral views of the chest. COMPARISON: Chest CT and radiograph dated October 05, 2018 FINDINGS: The lungs are hyperinflated. There is stable left basilar atelectasis and/or scarring. There is a stimulator device in place projecting over the right hemithorax with leads projecting over the right neck. Normal size heart. Normal mediastinum and violette. Normal visualized pulmonary arteries. Normal visualized aortic arch and descending thoracic aorta. There are diffuse degenerative changes of the visualized thoracic spine. There is a stable radiolucency projecting over the medial cortex of the left proximal humerus. There is no demonstrated abnormality of the visualized soft tissue structures of the upper abdomen. RAD/Chest PA and Lateral IMPRESSION: No acute cardiopulmonary process. Electronically Signed: Susi Jacques MD at 21:49 EDT Tel , Service support ,
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
[2020-02-03] MEDS: Ondansetron 4 MG/2 ML Vial IV (21:28)
[2020-02-03] MEDS: Morphine 4 MG/ML Syringe IV (21:28)
[2020-02-03 21:38] LABS: AST(SGOT) 51 U/L (15-37); Alanine Aminotransfer ALT/SGPT 109 U/L (16-61); Albumin, Serum 4.4 g/dL (3.2-5.0); Alkaline Phosphatase 82 U/L (45-117); Anion Gap 6 (5-15); BUN 19 mg/dL (7-18); BUN/Creat Ratio 15.8 RATIO (10-20); Bilirubin, Direct 0.17 mg/dL (0.00-0.30); Calcium,Total 9.2 mg/dL (8.5-10.1); Chloride 109 mmol/L (98-107); EST Glomerular Filtration Rate 65 mL/min (>60); Est Glom Filt Rate - Afr Amer 78 mL/min (>60); Estimated Creatinine Clearance 63.37 ml/min; Globulin 3.7 g/dL (2.2-4.2); Glucose 97 mg/dL (74-106); Lipase 341 U/L (73-393); Protein, Total 8.1 g/dL (6.4-8.2); Sodium Level 142 mmol/L (136-145)
[2020-02-03 22:22] VITALS: BP 138/98; PULSE 77; RESP 16; O2SAT 96
== END 2020-02-03 22:27 | disposition home or self-care (01) ==
PROVIDERS: Emergency Provider Emergency Medicine
DX: R07.89 Other chest pain (principal); R10.12 Left upper quadrant pain; I10 Essential (primary) hypertension; E11.9 Type 2 diabetes mellitus without complications; K21.9 Gastro-esophageal reflux disease without esophagitis; Z79.82 Long term (current) use of aspirin; Z79.84 Long term (current) use of oral hypoglycemic drugs; Z79.899 Other long term (current) drug therapy
CPT/HCPCS: 71046; 80048; 80076; 83690; 84484; 85025; 93005; 99283; A4216; J2405

== ENCOUNTER → 2020-02-13 11:55 | Outpatient (CLI) | payer MEDICARE, BC, SELFPAY ==
[2020-02-03 20:59] VITALS: BMI 29.5
[2020-02-13 15:02] LABS: Color, Urine Yellow (Yellow); Glucose, Dipstick Normal (Normal); Ketone-Dipstick Negative (Negative); Leukocyte Esterase-Dipstick Negative /ul (Negative); Nitrite-Dipstick Negative (Negative); Occult Blood-Urine Negative /ul (Negative); Protein-Dipstick Negative (Negative); Urine Bilirubin Dipstick Negative (Negative); Urine Clarity Sl. Cloudy (Clear); Urine Urobilinogen Normal (Normal)
[2020-02-13 15:04] LABS: Absolute Lymphocyte Count 1.63 X10^3/uL (0.83-4.51); Absolute Neutrophil Count 2.7 X10^3/uL (2.0-7.7); Basophil# 0.05 X10^3/uL; Eosinophils% 2.1 % (0-5); Hematocrit 46.4 % (40-54); Hemoglobin 15.6 g/dL (13.0-16.5); Lymphocyte # 1.63 X10^3/ul (4.0); Mean Corp Hgb Conc 33.6 g/dL (32-36); Mean Corpuscular Hgb 29.6 pg (27.0-32.0); Mean Platelet Vol. 12.8 fl (6.2-12.0); Monocyte# 0.35 X10^3/uL; Monocyte% 7.3 % (0-10); NRBC Flagged by Analyzer 0 % (0-5); Neutrophil # 2.65 X10^3/uL (2.7-7.7); Neutrophil % 55.2 % (47-70); Platelet Count 104 K/mm3 (150-450); RBC Distribution Width CV 13.4 % (11.6-14.6); RBC Distribution Width SD 42.9 fl (35.1-43.9); Red Blood Count 5.27 M/mm3 (4.6-6.2); White Blood Count 4.8 K/mm3 (4.4-11.0)
[2020-02-13 15:08] LABS: Hemoglobin A1c 5.7 % (3.8-5.6)
[2020-02-13 15:15] LABS: ALB/GLOB Ratio 1.1 RATIO (0.9-2.4); AST(SGOT) 40 U/L (15-37); Alanine Aminotransfer ALT/SGPT 94 U/L (16-61); Albumin, Serum 3.7 g/dL (3.2-5.0); Alkaline Phosphatase 83 U/L (45-117); Anion Gap 10 (5-15); BUN 22 mg/dL (7-18); BUN/Creat Ratio 21.8 RATIO (10-20); Calcium,Total 9.2 mg/dL (8.5-10.1); Chloride 110 mmol/L (98-107); Cholesterol 130 mg/dL (200); Creatinine, Serum 1.01 mg/dL (0.70-1.30); EST Glomerular Filtration Rate 79 mL/min (>60); Est Glom Filt Rate - Afr Amer 95 mL/min (>60); Globulin 3.4 g/dL (2.2-4.2); Glucose 141 mg/dL (74-106); High Density Lipoprotein 33 mg/dL; Potassium 3.9 mmol/L (3.5-5.1); Protein, Total 7.1 g/dL (6.4-8.2); Sodium Level 142 mmol/L (136-145); Thyroid Stim Hormone (TSH) 0.37 uIU/mL (0.358-3.74); Triglycerides 173 mg/dL; Very Low Density Lipoprotein 35 mg/dL (5-40)
== END ==
PROVIDERS: Referring Provider Family Medicine; Visit Provider Family Medicine
DX: Z00.00 Encounter for general adult medical examination without abnormal findings (principal); E11.65 Type 2 diabetes mellitus with hyperglycemia; E03.9 Hypothyroidism, unspecified; I10 Essential (primary) hypertension
CPT/HCPCS: 36415; 80053; 80061; 81002; 83036; 84443; 85025

== ENCOUNTER → 2020-07-15 14:02 | Outpatient (CLI) | payer MEDICARE, BC, SELFPAY ==
[2020-06-28 12:46] VITALS: BMI 29.5
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
== END ==
DX: M47.812 Spondylosis without myelopathy or radiculopathy, cervical region (principal); M48.02 Spinal stenosis, cervical region
CPT/HCPCS: 72052

== ENCOUNTER → 2020-08-01 14:15 | Outpatient (CLI) | payer MEDICARE, BC, SELFPAY ==
[2020-06-28 12:46] VITALS: BMI 29.5
--- NOTE | 2020-08-01 14:18 | RAD_ITS ---
STUDY: X-RAY - THORACIC SPINE REASON FOR EXAM: Male, 65 years old. Chronic upper back pain. TECHNIQUE: 2 view(s) of the thoracic spine were obtained. COMPARISON: None. FINDINGS: Slight increased kyphosis. There is no substantial scoliosis. Diffuse intervertebral disc space narrowing with paravertebral ossification, predominantly on the right, compatible with diffuse etiopathic skeletal hyperostosis. Aortic tortuosity with calcification. RAD/Thoracic Spine 2 Views IMPRESSION: Diffuse mild thoracic spondylosis with findings compatible with diffuse idiopathic skeletal hyperostosis. No acute finding. Electronically Signed: Jean Mancuso MD at 13:15 EST , Service support ,
== END ==
PROVIDERS: Referring Provider Anesthesiology Pain Medicine; Visit Provider Anesthesiology Pain Medicine
DX: M47.814 Spondylosis without myelopathy or radiculopathy, thoracic region (principal)
CPT/HCPCS: 72070

== ENCOUNTER → 2020-08-15 13:49 | Outpatient (CLI) | payer MEDICARE, BC, SELFPAY ==
[2020-06-28 12:46] VITALS: BMI 29.5
--- NOTE | 2020-08-15 13:50 | CT_ITS ---
STUDY: CT ABDOMEN AND PELVIS WITH CONTRAST REASON FOR EXAM: Male, 65 years old. DIFFUSE ABD PAIN X-MONTHS -- DIARRHEA RADIATION DOSAGE (If Supplied By Facility): CTDIvol = ( 15.39 ) mGy, DLP = ( 1140.98 ) mGycm TECHNIQUE: Transaxial images were obtained from the dome of the diaphragm to the symphysis pubis with oral contrast. Oral and amp;amp; IV Readi-CAT and amp;amp; 100mL Isovue-300 was administered. Sagittal and coronal images were reconstructed. Individualized dose optimization techniques were used for this CT. COMPARISON: Comparison is made with a prior examination dated 10/05/2018. FINDINGS: Stable minimal linear scarring in the lingular segment of the left upper lobe. The visualized portions of the heart are within normal limits. There is decreased attenuation of the liver consistent with steatosis. Hepatomegaly. There is a 1.7 cm x 1.8 cm hypodensity in the anterior lateral aspect of the right lobe of the liver. This may represent a small cyst. Correlation with ultrasound is recommended. Normal gallbladder and extrahepatic biliary system. There is mild splenomegaly. Normal pancreas. Normal bilateral adrenal glands. 4.4 cm x 4.8 cm cyst in the inferior aspect of the right kidney. Normal left kidney. Normal visualized stomach. Normal small intestine. There are scattered colonic diverticula consistent with diverticulosis. The appendix is visualized and appears normal. Normal abdominal aorta. Normal inferior vena cava. Normal retroperitoneum. Normal urinary bladder. Prior TURP in the prostate Normal abdominal wall. There are mild degenerative changes of the visualized lumbar spine. CT/Abdomen/Pelvis WITH Contrast IMPRESSION: Diffuse fatty infiltration of liver and hepatomegaly. 1.7 cm x 1.8 cm hypodensity in the anterior lateral aspect of the right lower liver suggestive of a small size correlation with ultrasound is recommended. Electronically Signed: Deangelo Mora, at 15:16 EST , Service support ,
[2020-08-15 14:10] LABS: CREATININE FINGERSTICK 0.9 mg/dL (0.70-1.30)
== END ==
PROVIDERS: Referring Provider Internal Medicine Gastroenterology; Visit Provider Internal Medicine Gastroenterology
DX: R10.12 Left upper quadrant pain (principal); R11.0 Nausea
CPT/HCPCS: 74177; Q9967

== ENCOUNTER → 2020-08-19 12:01 | Outpatient (CLI) | payer MEDICARE, BC, SELFPAY ==
[2020-06-28 12:46] VITALS: BMI 29.5
[2020-08-19 14:22] LABS: ALB/GLOB Ratio 1.1 RATIO (0.9-2.4); AST(SGOT) 55 U/L (15-37); Alanine Aminotransfer ALT/SGPT 120 U/L (16-61); Albumin, Serum 3.8 g/dL (3.2-5.0); Alkaline Phosphatase 97 U/L (45-117); Anion Gap 4 (5-15); BUN 20 mg/dL (7-18); BUN/Creat Ratio 20.7 RATIO (10-20); Calcium,Total 8.5 mg/dL (8.5-10.1); Chloride 110 mmol/L (98-107); Cholesterol 160 mg/dL (200); Creatinine, Serum 0.96 mg/dL (0.70-1.30); EST Glomerular Filtration Rate 83 mL/min (>60); Est Glom Filt Rate - Afr Amer 100 mL/min (>60); Globulin 3.4 g/dL (2.2-4.2); Glucose 137 mg/dL (74-106); High Density Lipoprotein 37 mg/dL; Protein, Total 7.2 g/dL (6.4-8.2); Sodium Level 142 mmol/L (136-145); Thyroid Stim Hormone (TSH) 0.49 uIU/mL (0.358-3.74); Triglycerides 166 mg/dL; Very Low Density Lipoprotein 33 mg/dL (5-40)
[2020-08-19 14:37] LABS: Hemoglobin A1c 6.1 % (3.8-5.6)
== END ==
PROVIDERS: Visit Provider Family Medicine
DX: E11.65 Type 2 diabetes mellitus with hyperglycemia (principal); E03.9 Hypothyroidism, unspecified; I10 Essential (primary) hypertension
CPT/HCPCS: 36415; 80053; 80061; 83036; 84443

== ENCOUNTER → 2020-08-23 09:28 | Outpatient (CLI) | payer MEDICARE, BC, SELFPAY ==
[2020-06-28 12:46] VITALS: BMI 29.5
--- NOTE | 2020-08-23 09:31 | US_ITS ---
STUDY: ABDOMINAL ULTRASOUND - RIGHT UPPER QUADRANT REASON FOR VISIT: Male, 65 years old FATTY LIVER TECHNIQUE: Ultrasound evaluation of the right upper quadrant was performed with real-time and static ng-scale imaging. TECHNICAL QUALITY: Limited. Examination limited by bowel gas. COMPARISON: CT abdomen and pelvis dated 08/15/2020 FINDINGS: Liver: The liver measures 18.9 cm. There is increased echogenicity consistent with fatty infiltration. The bile ducts are within normal limits. There is hepatic color flow. The direction of portal flow is hepatopetal. Lobulated anechoic cyst in the left lobe the liver measuring 2 x 1.7 x 2.0 cm Gallbladder: Normal distended gallbladder. The gallbladder wall measures 2 mm. There is a negative sonographic Cervantes''s sign. There is no pericholecystic fluid. There are gallbladder polyp. Polyp measures 5 x 8 x 4 mm Common Bile Duct (C.B.D.): The common bile duct measures 5 mm. Pancreas: Not clearly visualized due to overlying bowel gas Right Kidney: Normal size of the right kidney. The right kidney measures 12.1 cm. Normal renal cortex. The right cortex measures 1.2 cm. There is no demonstrated renal mass or cyst. Mid to lower pole anechoic renal cyst measuring 6.4 x 4.8 x 3.8 cm US/Liver IMPRESSION: 1. Simple appearing right lower pole renal cyst as well as liver cyst 2. Fatty steatosis of the liver 3. Nonvisualized pancreas due to overlying bowel gas Electronically Signed: Negrito Castellon DO at 13:04 EST Tel , Service support ,
== END ==
PROVIDERS: Referring Provider Internal Medicine Gastroenterology; Visit Provider Internal Medicine Gastroenterology
DX: K76.0 Fatty (change of) liver, not elsewhere classified (principal)
CPT/HCPCS: 76705

== ENCOUNTER → 2020-11-06 13:42 | Outpatient (CLI) | payer MEDICARE, BC, SELFPAY ==
[2020-06-28 12:46] VITALS: BMI 29.5
--- NOTE | 2020-11-06 13:46 | CT_ITS ---
STUDY: CT THORACIC SPINE WITHOUT CONTRAST REASON FOR EXAM: Male, 65 years old. Thoracic spondylosis, pain. Hx hypertension, diabetes. RADIATION DOSAGE (If Supplied By Facility): CTDIvol = ( 24.42 ) mGy, DLP = ( 1064.89 ) mGycm TECHNIQUE: The patient was scanned in a multi detector CT scanner. High resolution imaging was performed. Images were obtained from to . Sagittal and coronal images were reconstructed. Individualized dose optimization techniques were used for this CT. COMPARISON: None. FINDINGS: Normal visualized cervical spine. There is an increased kyphosis of the thoracic spine. There is no substantial scoliosis. There is multilevel endplate spondylosis of the thoracic spine. There is multilevel degenerative disc disease with loss of the disc space heights. Mild loss of height of the T4 vertebrae. The soft tissue structures are unremarkable. CT/Spine Thoracic without Contras IMPRESSION: Multilevel spondylosis and disc space narrowing. Mild loss of height of the superior endplate of the T4 vertebrae. Electronically Signed: Deangelo Mora MD at 14:33 EST , Service support ,
== END ==
PROVIDERS: Referring Provider Anesthesiology Pain Medicine; Visit Provider Anesthesiology Pain Medicine
DX: M47.814 Spondylosis without myelopathy or radiculopathy, thoracic region (principal); M48.10 Ankylosing hyperostosis [Forestier], site unspecified
CPT/HCPCS: 72128

== ENCOUNTER → 2021-01-07 15:07 | Outpatient (CLI) | payer MEDICARE, BC, SELFPAY ==
[2020-06-28 12:46] VITALS: BMI 29.5
[2021-01-07 16:34] LABS: PSA,Total- Diagnostic 4.42 ng/mL (0.0-4.0)
== END ==
PROVIDERS: Visit Provider Urology
DX: N40.1 Benign prostatic hyperplasia with lower urinary tract symptoms (principal)
CPT/HCPCS: 36415; 84153

== ENCOUNTER 2021-01-25 17:40 | Emergency (ER) | payer MEDICARE, BC, SELFPAY ==
[2020-06-28 12:46] VITALS: BMI 29.5
[2021-01-25 17:41] VITALS: BP 125/88; PULSE 75; RESP 16; TEMP 35.8; O2SAT 96; BMI 27.9
--- NOTE | 2021-01-25 17:53 | EKG12_ITS ---
Test Reason : CP Blood Pressure : / mmHG Vent. Rate : 072 BPM Atrial Rate : 072 BPM P-R Int : 166 ms QRS Dur : 072 ms QT Int : 378 ms P-R-T Axes : 012 -48 031 degrees QTc Int : 413 ms Normal sinus rhythm Left axis deviation Abnormal ECG Confirmed by ROSA ALDRIDGE, BLACK ([id number]), city editor [employer] ([id number]) on 01/28/2021 11:13:47 AM Referred By: KM Confirmed By:BLACK LEE MD
[2021-01-25 18:04] VITALS: PULSE 77; RESP 16; O2SAT 96; O2SAT 97
[2021-01-25 18:05] LABS: Absolute Lymphocyte Count 2.06 X10^3/uL (0.83-4.51); Absolute Neutrophil Count 3.1 X10^3/uL (2.0-7.7); Basophil# 0.06 X10^3/uL; Eosinophil# 0.12 X10^3/uL; Hematocrit 47.1 % (40-54); Hemoglobin 16.2 g/dL (13.0-16.5); Lymphocyte # 2.06 X10^3/ul (0.83-4.51); Lymphocyte % 34.9 % (19-41); Mean Corp Hgb Conc 34.4 g/dL (32-36); Mean Corpuscular Hgb 30.7 pg (27.0-32.0); Mean Corpuscular Volume 89.2 fL (80-94); Mean Platelet Vol. 12.1 fl (6.2-12.0); Monocyte# 0.54 X10^3/uL; Monocyte% 9.1 % (0-10); NRBC Flagged by Analyzer 0 % (0-5); Neutrophil # 3.12 X10^3/uL (2.7-7.7); Neutrophil % 52.8 % (47-70); Platelet Count 142 K/mm3 (150-450); RBC Distribution Width CV 12.7 % (11.6-14.6); RBC Distribution Width SD 41.6 fl (35.1-43.9); Red Blood Count 5.28 M/mm3 (4.6-6.2); White Blood Count 5.9 K/mm3 (4.4-11.0)
--- NOTE | 2021-01-25 18:15 | RAD_ITS ---
STUDY: X-RAY CHEST REASON FOR EXAM: Male, 65 years old. chest pain TECHNIQUE: Frontal portable view of the chest COMPARISON: 03 Feb 2020 FINDINGS: Electrostimulation device is present in the right upper chest with lead ascending intracranially. The lungs are clear and expanded. There is no demonstrated pleural abnormality. Normal size heart. Normal mediastinum and violette. Normal visualized pulmonary arteries. Normal visualized aortic arch and descending thoracic aorta. Normal visualized thoracic spine. Normal visualized ribs, clavicles, and shoulders. There is no demonstrated abnormality of the visualized soft tissue structures of the upper abdomen. RAD/Chest 1 View (Portable) IMPRESSION: Normal x-ray examination of the chest. Electronically Signed: Dayami Eduardo MD at 18:56 EDT Tel , Service support ,
[2021-01-25 18:22] LABS: Anion Gap 5 (5-15); BUN 13 mg/dL (7-18); BUN/Creat Ratio 13.6 RATIO (10-20); Calcium,Total 9.1 mg/dL (8.5-10.1); Chloride 110 mmol/L (98-107); Creatinine, Serum 0.96 mg/dL (0.70-1.30); EST Glomerular Filtration Rate 83 mL/min (>60); Est Glom Filt Rate - Afr Amer 101 mL/min (>60); Estimated Creatinine Clearance 78.15 ml/min; Glucose 99 mg/dL (74-106); Potassium 3.8 mmol/L (3.5-5.1); Sodium Level 141 mmol/L (136-145)
[2021-01-25 18:58] VITALS: PULSE 78; RESP 16; O2SAT 98
[2021-01-25 20:28] VITALS: BP 129/98; PULSE 78; RESP 18; O2SAT 96
--- NOTE | 2021-01-25 20:46 | EDS_ITS ---
HPI History of Present Illness Chief Complaint: Chest Pain Informant: patient Onset/Context/Timing Onset: Month(s) (several) Activity at onset: gradual Timing: Intermittent and Lasts (varies, sometimes all day) Quality: Positive for Pressure Location: Left Chest (without radiation) Current Severity: Moderate Maximum Severity: Moderate Worsened By: Movement of Arm, Movement of Torso and Palpation (at times); Not Worsened By Exertion, Eating, Breathing and Coughing Relieved By: Nothing Associated Symptoms: Positive for Nausea (at times), Dyspnea (at times) and Lightheadedness; Negative for Vomiting, Diaphoresis, Cough, Fever and Palpitations Narrative Narrative: Patient states he has had a heart cath maybe 3 years ago that showed coronary disease but he did not need a stent. Follows with cardiology as directed and is compliant with his aspirin. Has been having this discomfort and it got worse today, has been there for much of the day today, he decided to have it evaluated. [facility] Medical History Abdominal pain Abnormal EKG Abnormal stress test Arthritis Chest pain Chest pain Coronary artery spasm Depression with anxiety Diabetes Difficulty swallowing Essential (primary) hypertension GERD (gastroesophageal reflux disease) Glaucoma Headache History of back problems Hypertension Nausea Obstructive sleep apnea Pruritus ani Sleep apnea SOB (shortness of breath) Thyroid disease Unstable angina Home Medications levothyroxine 125 mcg PO DAILY 10/26/13 [History Last Taken 10/04/18 07:00] metformin 1,000 mg PO BID 05/27/16 [History Last Taken 10/04/18 21:00] glimepiride 4 mg PO DAILY 11/02/17 [History Last Taken 10/04/18 17:00] aspirin 81 mg PO QODAY #30 tab 10/07/18 [Rx Last Taken Unknown] brinzolamide 1 % eye drops,suspension 1 drp OPHTHALMIC QHS 02/14/19 [History Last Taken Unknown] latanoprostene bunod 0.024 % eye drops 1 drp OPHTHALMIC QHS 11/23/19 [History Last Taken Unknown] pantoprazole 40 mg tablet,delayed release 40 mg PO DAILY #90 tab 11/23/19 [Rx Last Taken Unknown] pregabalin 200 mg capsule 200 mg PO TID 11/23/19 [History Last Taken Unknown] timolol 0.5 % eye drops 1 drp OPHTHALMIC BID 11/23/19 [History Last Taken Unknown] amlodipine 5 mg tablet 5 mg PO DAILY #90 tab 06/28/20 [Rx Last Taken Unknown] semaglutide ml SC 06/28/20 [History Last Taken Unknown] isosorbide mononitrate 30 mg PO DAILY #30 tab 01/25/21 [Rx Last Taken Unknown] Allergy/AdvReac Type Severity Reaction Status Date / Time Sulfa (Sulfonamide Allergy Mild Hives Verified 01/25/21 17:41 Antibiotics) oxycodone [From Percocet] AdvReac Mild anxious Verified 01/25/21 17:41 Family History Mother Diabetes Surgical History History of arthroscopy of left shoulder History of eye surgery History of facial surgery History of left heart catheterization (10/07/18) History of repair of rotator cuff left testicle removed s/p back S/P carpal tunnel release s/p hip Social History Smoking Status: Never smoker ROS ROS ED Constitutional Constitutional ED: Reports fatigue and other Details: lightheadedness at times ; Denies chills or fever(s) Eyes Eyes: Denies change in vision or diplopia ENT ENT ED: Denies rhinorrhea or sore throat Cardiovascular Cardiovascular: Reports chest pain; Denies palpitations Respiratory/Chest Respiratory/Chest: Denies cough or dyspnea Gastrointestinal Gastrointestinal: Reports nausea; Denies abdominal pain, diarrhea or vomiting Genitourinary Genitourinary ED: Denies dysuria or hematuria Musculoskeletal Musculoskeletal: Denies back pain or neck pain Integumentary Denies abscess or rash Neurologic Neurologic: Denies headache(s), paresthesias or weakness Psychiatric Psychiatric: Denies anxiety or suicidal thoughts EXAM Physical Exam Const Vital Signs: 01/25/21 17:41 01/25/21 18:04 01/25/21 18:07 Temperature 96.5 F L Temperature Source Temporal Pulse Rate 75 77 Respiratory Rate 16 16 Respiratory Effort Normal Non-Labored Respiratory Pattern Normal Blood Pressure 125/88 H Blood Pressure Mean 100 Pulse Ox 96 97 Oxygen Delivery Method Room Air Room Air 01/25/21 18:58 01/25/21 20:28 Temperature Temperature Source Pulse Rate 78 78 Respiratory Rate 16 18 Respiratory Effort Respiratory Pattern Blood Pressure 129/98 H Blood Pressure Mean 108 Pulse Ox 98 96 Oxygen Delivery Method Room Air Positive well nourished and well developed General Appearance ED: well developed and NAD HEENT Reports moist mucous membranes normocephalic and atraumatic Eyes PERRL and EOMs intact bilaterally Neck full ROM and supple Chest Wall inspection of chest normal Chest Narrative: mildly tender left chest around breast/nipple, which appears normal Chest: tenderness Resp normal respiratory effort and clear to auscultation bilaterally Cardio regular rate, regular rhythm and no murmurs Rate: Negative for tachycardic GI non-tender and non-distended Auscultation: normoactive bowel sounds Palpation: soft Back/Spine no CVA tenderness General Back: other FROM Extremity normal to inspection General Extremety ED: Negative for edema, pulses abnormal or tenderness General Extremity: Negative for edema or pulses abnormal Neuro oriented x3, CN's II-XII intact bilaterally and no sensory deficits noted Sensorium / Orientation: awake and alert Motor Exam: strength 5/5 throughout Psych mental status grossly normal and thought process normal Skin no rashes or lesions noted and no wounds Heart Score History: Slightly/Non-Suspicious ECG: Normal Age: >/= 65 years Risk Factors: 1 or 2 Risk Factors Troponin: </= Normal Limit Score: 3 MDM MDM MDM Narrative Medical decision making narrative: Patient does not feel any different after nitroglycerin, and I reviewed his work-up which is unremarkable. I reviewed his prior cardiology visit from about 6 months ago, which discusses very similar symptoms to which he presents with now. It seems he stopped taking his Imdur in the past. I offered to put him back on it, but I do not think he needs to be admitted for further cardiac work-up here. I am comfortable with him following up as an outpatient. Lab Data Attestation: I reviewed the patient's lab results. Labs: Laboratory Results - last 24 hr 01/25/21 01/25/21 17:50 17:50 WBC 5.9 RBC 5.28 Hgb 16.2 Hct 47.1 MCV 89.2 MCH 30.7 MCHC 34.4 RDW Std Deviation 41.6 RDW Coeff of Letty 12.7 Plt Count 142 L MPV 12.1 H Immature Gran % (Auto) 0.200 Neut % (Auto) 52.8 Lymph % (Auto) 34.9 [place] % (Auto) 9.1 Eos % (Auto) 2.0 Baso % (Auto) 1.0 Absolute Neuts (auto) 3.1 Absolute Lymphs (auto) 2.06 Nucleated RBC % 0 Sodium 141 Potassium 3.8 Chloride 110 H Carbon Dioxide 26.0 Anion Gap 5 BUN 13 Creatinine 0.96 Estim Creat Clear Calc 78.15 Est GFR (MDRD) Af Amer 101 Est GFR (MDRD) Non-Af 83 BUN/Creatinine Ratio 13.6 Glucose 99 Calcium 9.1 Troponin I < 0.015 Radiography Chest X-Ray - ED: 1 View, Read by ED Physician and Normal Diagnostic Testing: Radiology Impression Chest X-Ray 01/25/21 18:15 IMPRESSION: Normal x-ray examination of the chest. Electronically Signed: Dayami Eduardo MD at 18:56 EDT Tel , Service support , EKG Initial EKG: Attestation: I personally reviewed and interpreted this EKG as follows: Interpretation: Sinus Rhythm and No Acute Injury Pattern Comments: left axis Prior EKG tracings: available for review Prior: Unchanged Discharge Plan Triage Chief Complaint: Chest Pain Other Complaint: Dizziness ED Provider: Teto Paredes Dx/Rx/DC Orders Clinical Impression: Chest pain, non-cardiac Instructions: ED Chest Pain, Noncardiac Prescriptions: New isosorbide mononitrate 30 mg tablet extended release 24 hr 30 mg PO DAILY Qty: 30 RF: 0 Continued Azopt 1 % drops,suspension 1 drp OPHTHALMIC QHS RF: 0 timolol 0.5 % drops 1 drp OPHTHALMIC BID RF: 0 Vyzulta 0.024 % drops 1 drp OPHTHALMIC QHS RF: 0 pregabalin [Lyrica] 200 mg capsule 200 mg PO TID RF: 0 pantoprazole 40 mg tablet,delayed release (DR/EC) 40 mg PO DAILY Qty: 90 RF: 3 semaglutide 0.25 mg or 0.5 mg(2 mg/1.5 mL) pen injector SC RF: 0 amlodipine 5 mg tablet 5 mg PO DAILY Qty: 90 RF: 3 levothyroxine 125 MCG tablet 125 mcg PO DAILY RF: 0 metformin 500 MG tablet 1,000 mg PO BID RF: 0 glimepiride 4 MG tablet 4 mg PO DAILY RF: 0 aspirin 81 MG tablet 81 mg PO QODAY Qty: 30 RF: 1 Primary Care Provider: Grabiel Head Referrals: Grabiel Head [Primary Care Provider] - 1-2 Weeks (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
[2021-01-25 21:19] VITALS: BP 135/76; PULSE 76; RESP 18; O2SAT 96
--- NOTE | 2021-01-25 21:31 | ED.RN ---
As per PT request, his was called for her to come pick him up. Message was left on her cellphone.
== END 2021-01-25 21:32 | disposition home or self-care (01) ==
PROVIDERS: Emergency Provider Emergency Medicine
DX: R07.89 Other chest pain (principal); I20.0 Unstable angina; I10 Essential (primary) hypertension; E11.9 Type 2 diabetes mellitus without complications; M19.90 Unspecified osteoarthritis, unspecified site; K21.9 Gastro-esophageal reflux disease without esophagitis; Z79.82 Long term (current) use of aspirin; Z79.84 Long term (current) use of oral hypoglycemic drugs; Z79.899 Other long term (current) drug therapy
CPT/HCPCS: 71045; 80048; 84484; 85025; 93005; 99284; A4216

== ENCOUNTER → 2021-02-14 11:44 | Outpatient (CLI) | payer MEDICARE, BC, SELFPAY ==
[2021-01-28 13:38] VITALS: BMI 29.1
[2021-02-14 13:12] LABS: Absolute Neutrophil Count 3.1 X10^3/uL (2.0-7.7); Basophil# 0.07 X10^3/uL; Basophil% 1.2 % (0-1); Eosinophils% 1.8 % (0-5); Hematocrit 46.5 % (40-54); Hemoglobin 15.5 g/dL (13.0-16.5); Lymphocyte % 31.9 % (19-41); Mean Corp Hgb Conc 33.3 g/dL (32-36); Mean Corpuscular Hgb 29.7 pg (27.0-32.0); Mean Corpuscular Volume 89.1 fL (80-94); Mean Platelet Vol. 12.6 fl (6.2-12.0); Monocyte# 0.52 X10^3/uL; Monocyte% 9.2 % (0-10); NRBC Flagged by Analyzer 0 % (0-5); Neutrophil # 3.14 X10^3/uL (2.7-7.7); Neutrophil % 55.7 % (47-70); Platelet Count 124 K/mm3 (150-450); RBC Distribution Width SD 42.6 fl (35.1-43.9); Red Blood Count 5.22 M/mm3 (4.6-6.2); White Blood Count 5.6 K/mm3 (4.4-11.0)
[2021-02-14 13:49] LABS: ALB/GLOB Ratio 1.2 RATIO (0.9-2.4); AST(SGOT) 44 U/L (15-37); Alanine Aminotransfer ALT/SGPT 87 U/L (16-61); Albumin, Serum 4.1 g/dL (3.2-5.0); Alkaline Phosphatase 69 U/L (45-117); Anion Gap 7 (5-15); BUN 23 mg/dL (7-18); BUN/Creat Ratio 23.2 RATIO (10-20); Chloride 110 mmol/L (98-107); Cholesterol 171 mg/dL (200); Creatinine, Serum 0.99 mg/dL (0.70-1.30); EST Glomerular Filtration Rate 80 mL/min (>60); Est Glom Filt Rate - Afr Amer 97 mL/min (>60); Globulin 3.4 g/dL (2.2-4.2); Glucose 137 mg/dL (74-106); High Density Lipoprotein 46 mg/dL; Potassium 3.8 mmol/L (3.5-5.1); Protein, Total 7.5 g/dL (6.4-8.2); Sodium Level 142 mmol/L (136-145); Thyroid Stim Hormone (TSH) 0.53 uIU/mL (0.358-3.74); Triglycerides 143 mg/dL; Very Low Density Lipoprotein 29 mg/dL (5-40)
== END ==
PROVIDERS: Referring Provider Family Medicine; Visit Provider Family Medicine
DX: Z00.00 Encounter for general adult medical examination without abnormal findings (principal); E11.65 Type 2 diabetes mellitus with hyperglycemia; E03.9 Hypothyroidism, unspecified; I10 Essential (primary) hypertension
CPT/HCPCS: 36415; 80053; 80061; 83036; 84443; 85025

== ENCOUNTER → 2021-02-20 | Outpatient (CLI) | payer MEDICARE, BC, SELFPAY ==
[2021-01-28 13:38] VITALS: BMI 29.1
--- NOTE | 2021-02-20 | IMM_PTH ---
PATIENT: ROBERT ART LOC: [facility] U#:[id number] AGE/SX: 65/M ROOM: RE02/20/[address]: Dr. Emile Berger MD : 1955 BED: DIS: 02/20/2021 SPEC #: [id number] RECD: 02/21/21 12:12 STATUS: GRACE REQ #: [id number] SILVINO: 02/20/21 00:[address]: Emile Berger DEPT: IMMUNOHISTOCHEMISTRY RECD BY: Savannah Iyer ENTERED: 02/21/21 12:14 SP TYPE: IMMUNO OTHR DR: Grabiel Head Tissues: A - PROSTATE RIGHT B - PROSTATE RIGHT C - PROSTATE RIGHT D - PROSTATE LEFT E - PROSTATE LEFT F - PROSTATE LEFT Procedures: 34BE12 (add) P40 (add) 34BE12 (initial) PHYSICIAN & INSTITUTION [place] [id number] SPECIMEN INFORMATION: Tissue Source: A - Right apex, B - Right mid, C - Right base, D - Left apex, E - Left mid, F - Left base Clinical Info: R97.20 Specimen Number: [id number] CPT code: 62903, 34321 x11 METHODOLOGY: Deparaffinized sections of prefer/formalin-fixed tissue or PAP/DQ stained slides are incubated with monoclonal/polyclonal antibodies/oligonucleotide probes. Localization is made via biotin free immunoperoxidase method. Appropriate controls are performed and reacted as expected. Results on target cell population are indicated in the following table: RESULTS: ANTIBODY / CLONE RESULT Block A P40 (BC28) positive 34BE12 (34BE12) positive Block B P40 (BC28) positive 34BE12 (34BE12) positive Block C P40 (BC28) negative 34BE12 (34BE12) negative Block D P40 (BC28) negative 34BE12 (34BE12) negative Block E P40 (BC28) positive 34BE12 (34BE12) positive Block F P40 (BC28) negative 34BE12 (34BE12) negative These tests were developed and their performance characteristics determined by [facility]. They may not have been cleared or approved by the U.S. Food and Drug Administration. The FDA has determined that such clearance or approval is not necessary. The above immunohistochemical/dualISH markers are ordered and reviewed by the Pathologist. INTERPRETATION: A. Right prostate, apex, core biopsy: Focal high-grade prostatic intraepithelial neoplasia (HGPIN). B. Right prostate, mid, core biopsy: Focal high-grade prostatic intraepithelial neoplasia (HGPIN). C. Right prostate, base, core biopsy: Adenocarcinoma. D. Left prostate, apex, core biopsy: Adenocarcinoma. E. Left prostate, mid, core biopsy: Negative for malignancy. F. Left prostate, base, core biopsy: Adenocarcinoma. SJ:darlyn 02/25/2021
--- NOTE | 2021-02-20 08:00 | PROSBIL_PTH ---
PATIENT: ROBERT ART LOC: [facility] U#:[id number] AGE/SX: 65/M ROOM: RE02/20/[address]: Dr. Emile Berger MD : 1955 BED: DIS: 02/20/2021 SPEC #: [id number] RECD: 02/20/21 10:40 STATUS: GRACE REBeto #: [id number] SILVINO: 02/20/21 08:[address]: Emile Berger DEPT: SURGICAL PATHOLOGY RECD BY: Vanessa Corcoran ENTERED: 02/20/21 11:11 SP TYPE: PROST BX FRED DR: Grabiel Head Tissues: A - PROSTATE RIGHT B - PROSTATE RIGHT C - PROSTATE RIGHT D - PROSTATE LEFT E - PROSTATE LEFT F - PROSTATE LEFT Procedures: PROSTATE BX HEADER OPERATION: Prostate biopsy PRE-OP DIAGNOSIS: R97.20 TISSUE SUBMITTED: A - Right apex, B - Right mid, C - Right base, D - Left apex, E - Left mid, F - Left base MICROSCOPIC DIAGNOSIS A. Right prostate, apex, core biopsy: Focal high-grade prostatic intraepithelial neoplasia (HGPIN). See comment. B. Right prostate, mid, core biopsy: Focal high-grade prostatic intraepithelial neoplasia (HGPIN). See comment. C. Right prostate, base, core biopsy: Prostatic adenocarcinoma. Carmen grade: 3+3=6 Number of cores involved: 1/2 Proportion of tissue involved: <5% Perineural invasion: Not identified. Greatest tumor length: 0.2 cm, discontinuous. Focal high-grade prostatic intraepithelial neoplasia (HGPIN). See comment. D. Left prostate, apex, core biopsy: Prostatic adenocarcinoma. Sherly grade: 3+3=6 Number of cores involved: 2/2 Proportion of tissue involved: 5-10% Perineural invasion: Not identified. Greatest tumor length: 0.4 cm, discontinuous. Focal high-grade prostatic intraepithelial neoplasia (HGPIN). See comment. E. Left prostate, mid, core biopsy: Prostatic tissue negative for malignancy. See comment. F. Left prostate, base, core biopsy: Prostatic adenocarcinoma. Carmen grade: 3+3=6 Number of cores involved: 1/2 Proportion of tissue involved: ~5% Perineural invasion: Not identified. Greatest tumor length: 0.2 cm See comment. SJ:darlyn 02/21/2021 COMMENT A-F. Immunohistochemistry ([id number]) supports the above diagnosis. Case has been reviewed in consultation with Dr. Boggs who concurs with the above diagnosis. IDC:AM MICROSCOPIC DESCRIPTION Slides are reviewed. GROSS DESCRIPTION A - Received is one container designated prostate, right apex. The specimen consists of two elongated fragments of light garcia-white soft tissue each measuring 1 cm in length and 0.1 cm in diameter. The specimen is totally submitted in one cassette. B - Received is one container designated prostate, right mid. The specimen consists of two elongated fragments of light garcia-white soft tissue each measuring 1 cm in length and 0.1 cm in diameter. The specimen is totally submitted in one cassette. C - Received is one container designated prostate, right base. The specimen consists of two elongated fragments of light garcia-white soft tissue each measuring 1.5 cm in length and 0.1 cm in diameter. The specimen is totally submitted in one cassette. D - Received is one container designated prostate, left apex. The specimen consists of two elongated fragments of light garcia-white soft tissue each measuring 1 cm in length and 0.1 cm in diameter. The specimen is totally submitted in one cassette. E - Received is one container designated prostate, left mid. The specimen consists of two elongated fragments of light garcia-white soft tissue each measuring 1 cm in length and 0.1 cm in diameter. The specimen is totally submitted in one cassette. F - Received is one container designated prostate, left base. The specimen consists of two elongated fragments of light garcia-white soft tissue each measuring 1 cm in length and 0.1 cm in diameter. The specimen is totally submitted in one cassette. / AM:darlyn 02/20/21 TC:0 [facility]: [id number]
== END | disposition home or self-care (01) ==
LOC: LABSPEC 10:47
PROVIDERS: Referring Provider Urology; Visit Provider Urology
DX: R97.20 Elevated prostate specific antigen [PSA] (principal)
CPT/HCPCS: 88305; 88341; 88342; G0416

== ENCOUNTER → 2021-04-14 10:12 | Outpatient (CLI) | payer MEDICARE, BC, SELFPAY ==
[2021-03-12 15:56] VITALS: BMI 28.2
[2021-03-12 17:01] VITALS: BMI 28.2
--- NOTE | 2021-04-14 10:14 | NM_ITS ---
CLINICAL: 65-year-old male with history of carcinoma of the prostate. WHOLE BODY 99m Tc MDP RADIONUCLIDE BONE SCINTIGRAPHY COMPARISON: CT of the abdomen-pelvis report 08/15/2020, CT of the thoracic spine report 11/06/2020 FINDINGS: Following the intravenous administration of 25.2 mCi of 99m Tc MDP, whole body bone images reveal: 1. Increased radiopharmaceutical concentration is defined in the left posterior 10th rib. 2. Enhanced tracer distribution is defined in the upper cervical spine posteriorly on the left and right, glenohumeral compartments of both shoulders, right elbow knee articulations bilaterally, sixth thoracic vertebra posteriorly on the right, fourth-fifth lumbar vertebra and first sacral segment. 3. The remaining skeletal structures are scintigraphically unremarkable with normal-appearing renal images and urinary bladder activity identified. NM/Bone Scan Whole Body IMPRESSION: 1. The increase in tracer distribution defined in the left posterior 10th rib is most consistent with trauma-fracture. Plain film radiography correlation may be of benefit. 2. Degenerative arthritis appears expressed in the cervical, thoracic and lumbar spine, sacrum, bilateral knees, glenohumeral compartments of both shoulders. Alternatively, synovial inflammation may be another diagnostic consideration within the context of the right and left shoulders. Electronically Signed: Kd Lackey DO at 22:50 EDT Tel , Service support ,
== END ==
PROVIDERS: Referring Provider Internal Medicine Medical Oncology; Visit Provider Internal Medicine Medical Oncology
DX: C61 Malignant neoplasm of prostate (principal)
CPT/HCPCS: 78306; A9503

== ENCOUNTER → 2021-04-21 10:14 | Outpatient (CLI) | payer MEDICARE, BC, SELFPAY ==
[2021-04-15 14:18] VITALS: BMI 27.6
[2021-04-17 15:16] VITALS: BMI 27.8
--- NOTE | 2021-04-21 18:25 | STRESSREP ---
Stress Test Report Pharmacologic myocardial perfusion stress test. 65-year-old male with a history of chest pain. Stress protocol: Resting EKG demonstrates normal sinus rhythm with a rate of 70 bpm. Resting blood pressure is 122/88 mmHg. 0.4 mg of regadenoson was infused per usual protocol followed by rapid intravenous saline flush injection continuous EKG monitoring was performed. The maximum heart rate attained was 100 bpm which was 64% of max infected heart rate the maximum workload was 1 metabolic equivalent. At rest there were no ST or T wave changes noted to suggest abnormal flow reserve and at peak infusion nonspecific ST changes were noted which did not meet the criteria for abnormal flow reserve of ischemia. The final blood pressure was 128/84 mmHg. Myocardial perfusion protocol. 12.0 mCi of technetium 99m sestamibi was injected at rest. 0.4 mg of regadenoson was infused per usual protocol. At peak infusion 35.7 mCi of technetium 99m sestamibi was injected stress images were obtained stress and rest images were reconstructed and compared in the short axis vertical long and horizontal long axis. Gated images were also obtained. Perfusion SPECT analysis: Review of the stress images demonstrate normal uptake of tracer noted in all areas of the myocardium. The resting images demonstrate a similar pattern. All of the terrazas appear to be normally perfused. There are no areas of reversibility noted to suggest ischemia. Gated SPECT analysis: The gated ejection fraction is 58%. Conclusion: Normal myocardial perfusion stress test via regadenoson. Preserved ejection fraction.
== END ==
PROVIDERS: Referring Provider Physician Assistant Medical; Visit Provider Physician Assistant Medical
DX: R07.9 Chest pain, unspecified (principal)
CPT/HCPCS: 78452; 93017; A9500; A4216; J2785

== ENCOUNTER 2021-06-09 14:47 | Emergency (ER) | payer MEDICARE, BC, SELFPAY ==
[2021-06-09 14:49] VITALS: BP 135/89; PULSE 73; RESP 12; TEMP 36.8; O2SAT 99; BMI 29.3
--- NOTE | 2021-06-09 15:36 | EKG12_ITS ---
Test Reason : Blood Pressure : / mmHG Vent. Rate : 072 BPM Atrial Rate : 072 BPM P-R Int : 176 ms QRS Dur : 074 ms QT Int : 382 ms P-R-T Axes : 038 -56 030 degrees QTc Int : 418 ms Normal sinus rhythm Left axis deviation Low voltage QRS (Limb Leads) Inferior infarct , age undetermined Abnormal ECG Confirmed by SCAR ALDRIDGE, MAYRA ([id number]), commercial production editor VITOR CHAPA ([id number]) on 06/11/2021 10:25:22 AM Referred By: JOHN Confirmed By:MAYRA ABBOTT MD
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
[2021-06-09] MEDS: 0.9% Normal Saline 1,000 ML 1000 ML IV (15:48)
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
[2021-06-09 16:01] LABS: Absolute Lymphocyte Count 1.57 X10^3/uL (0.83-4.51); Absolute Neutrophil Count 2.4 X10^3/uL (2.0-7.7); Basophil# 0.06 X10^3/uL; Basophil% 1.3 % (0-1); Eosinophil# 0.04 X10^3/uL; Eosinophils% 0.9 % (0-5); Hematocrit 44.1 % (40-54); Hemoglobin 14.9 g/dL (13.0-16.5); Lymphocyte # 1.57 X10^3/ul (0.83-4.51); Lymphocyte % 33.5 % (19-41); Mean Corp Hgb Conc 33.8 g/dL (32-36); Mean Corpuscular Hgb 29.2 pg (27.0-32.0); Mean Corpuscular Volume 86.5 fL (80-94); Mean Platelet Vol. 12.8 fl (6.2-12.0); Monocyte# 0.61 X10^3/uL; NRBC Flagged by Analyzer 0 % (0-5); Neutrophil # 2.38 X10^3/uL (2.7-7.7); Neutrophil % 50.9 % (47-70); Platelet Count 140 K/mm3 (150-450); RBC Distribution Width CV 13.2 % (11.6-14.6); RBC Distribution Width SD 41.3 fl (35.1-43.9); White Blood Count 4.7 K/mm3 (4.4-11.0)
[2021-06-09 16:18] LABS: Anion Gap 9 (5-15); BUN 20 mg/dL (7-18); BUN/Creat Ratio 15.3 RATIO (10-20); Calcium,Total 9.9 mg/dL (8.5-10.1); Chloride 110 mmol/L (98-107); Creatinine, Serum 1.31 mg/dL (0.70-1.30); EST Glomerular Filtration Rate 58 mL/min (>60); Est Glom Filt Rate - Afr Amer 70 mL/min (>60); Glucose 142 mg/dL (74-106); Potassium 4.3 mmol/L (3.5-5.1); Sodium Level 142 mmol/L (136-145); Troponin-I HS 5 pg/mL (3.0-78.0)
[2021-06-09 16:32] VITALS: BP 119/81; BP 120/85; BP 126/78; PULSE 72; PULSE 75; PULSE 78
[2021-06-09 16:59] VITALS: BP 120/80; PULSE 68; RESP 16; O2SAT 98
[2021-06-09 18:35] LABS: Troponin-I HS 4 pg/mL (3.0-78.0)
[2021-06-09 18:43] VITALS: O2SAT 97
== END 2021-06-09 19:25 | disposition home or self-care (01) ==
PROVIDERS: Emergency Provider Emergency Medicine
DX: R55 Syncope and collapse (principal); R07.9 Chest pain, unspecified; N17.9 Acute kidney failure, unspecified; I10 Essential (primary) hypertension; E03.9 Hypothyroidism, unspecified; E11.36 Type 2 diabetes mellitus with diabetic cataract; E78.00 Pure hypercholesterolemia, unspecified; K21.9 Gastro-esophageal reflux disease without esophagitis; H54.8 Legal blindness, as defined in USA; M19.90 Unspecified osteoarthritis, unspecified site; F17.220 Nicotine dependence, chewing tobacco, uncomplicated; Z79.899 Other long term (current) drug therapy; Z79.82 Long term (current) use of aspirin; Z79.84 Long term (current) use of oral hypoglycemic drugs
CPT/HCPCS: 71045; 80048; 84484; 85025; 93005; 99285

== ENCOUNTER → 2021-07-31 13:43 | Outpatient (CLI) | payer MEDICARE, BC, SELFPAY ==
--- NOTE | 2021-07-31 13:48 | CT_ITS ---
STUDY: RIGHT SHOULDER CT SCAN REASON FOR EXAM: Male, 66 years old. OSTEOARTHRITIS RADIATION DOSAGE (If Supplied By Facility): CTDIvol = ( 26.14 ) mGy, DLP = ( 668.00 ) mGycm. Individualized dose optimization techniques were used for this CT.? TECHNIQUE: Axial multidetector CT scan of the right shoulder. Coronal and sagittal reformatted images. COMPARISON: None. FINDINGS: No acute fracture, dislocation or cortical destruction. Mild osteopenia. Severe glenohumeral joint arthrosis with large humeral head mental osteophyte. Severe acromioclavicular joint arthrosis. Mild anterior interval narrowing/early impingement. Coracoclavicular ligamentous calcification. Normal-appearing rotator cuff muscles. Visualized ribs intact. Visualized vertebral bodies intact. C7 hemangioma (sagittal image 102 series 602). Right lung clear. Cardiac device. CT/Extremity Upper without Contra IMPRESSION: Severe right shoulder osteoarthritis, as above Electronically Signed: Garth Emery DO at 8:12 EDT Tel , Service support ,
== END ==
PROVIDERS: Referring Provider Specialist; Visit Provider Specialist
DX: M19.011 Primary osteoarthritis, right shoulder (principal)
CPT/HCPCS: 73200

== ENCOUNTER → 2021-08-13 12:56 | Outpatient (CLI) | payer MEDICARE, BC, SELFPAY ==
[2021-08-13 14:06] LABS: Absolute Lymphocyte Count 2.29 X10^3/uL (0.83-4.51); Absolute Neutrophil Count 3.5 X10^3/uL (2.0-7.7); Basophil# 0.05 X10^3/uL; Basophil% 0.8 % (0-1); Eosinophils% 1.6 % (0-5); Hematocrit 45.8 % (40-54); Hemoglobin 15.6 g/dL (13.0-16.5); Lymphocyte # 2.29 X10^3/ul (0.83-4.51); Lymphocyte % 35.7 % (19-41); Mean Corp Hgb Conc 34.1 g/dL (32-36); Mean Corpuscular Hgb 29.5 pg (27.0-32.0); Mean Corpuscular Volume 86.7 fL (80-94); Mean Platelet Vol. 12.6 fl (6.2-12.0); Monocyte# 0.46 X10^3/uL; Monocyte% 7.2 % (0-10); NRBC Flagged by Analyzer 0 % (0-5); Neutrophil % 54.5 % (47-70); Platelet Count 111 K/mm3 (150-450); RBC Distribution Width CV 13.3 % (11.6-14.6); RBC Distribution Width SD 42.5 fl (35.1-43.9); Red Blood Count 5.28 M/mm3 (4.6-6.2); White Blood Count 6.4 K/mm3 (4.4-11.0)
[2021-08-13 14:38] LABS: Hemoglobin A1c 5.9 % (3.8-5.6)
[2021-08-13 14:42] LABS: AST(SGOT) 40 U/L (15-37); Alanine Aminotransfer ALT/SGPT 62 U/L (16-61); Albumin, Serum 3.7 g/dL (3.2-5.0); Alkaline Phosphatase 76 U/L (45-117); Anion Gap 5 (5-15); BUN 19 mg/dL (7-18); BUN/Creat Ratio 17.9 RATIO (10-20); Calcium,Total 9.3 mg/dL (8.5-10.1); Chloride 112 mmol/L (98-107); Cholesterol 147 mg/dL (200); Creatinine, Serum 1.06 mg/dL (0.70-1.30); EST Glomerular Filtration Rate 74 mL/min (>60); Est Glom Filt Rate - Afr Amer 90 mL/min (>60); Globulin 3.6 g/dL (2.2-4.2); Glucose 147 mg/dL (74-106); High Density Lipoprotein 37 mg/dL; PSA,Total - Annual Screen 3.85 ng/mL (0.00-4.00); Potassium 3.9 mmol/L (3.5-5.1); Protein, Total 7.3 g/dL (6.4-8.2); Sodium Level 141 mmol/L (136-145); Thyroid Stim Hormone (TSH) 1.29 uIU/mL (0.358-3.74); Triglycerides 135 mg/dL; Very Low Density Lipoprotein 27 mg/dL (5-40)
== END ==
PROVIDERS: Visit Provider Family Medicine
DX: E11.65 Type 2 diabetes mellitus with hyperglycemia (principal); I10 Essential (primary) hypertension; E03.9 Hypothyroidism, unspecified; Z12.5 Encounter for screening for malignant neoplasm of prostate
CPT/HCPCS: 36415; 80053; 80061; 83036; 84153; 84443; 85025; G0103

== ENCOUNTER → 2021-08-26 14:06 | Outpatient (CLI) | payer MEDICARE, BC, SELFPAY | PROVIDERS: Visit Provider Urology | DX: C61 Malignant neoplasm of prostate (principal) | CPT/HCPCS: 36415; 84153 ==

== ENCOUNTER 2021-10-15 07:42 | Observation (INO) | payer MEDICARE, BC, SELFPAY ==
[2021-09-30 16:23] LABS: Absolute Lymphocyte Count 1.97 X10^3/uL (0.83-4.51); Absolute Neutrophil Count 2.7 X10^3/uL (2.0-7.7); Basophil# 0.05 X10^3/uL; Basophil% 0.9 % (0-1); Eosinophil# 0.12 X10^3/uL; Eosinophils% 2.2 % (0-5); Hemoglobin 14.8 g/dL (13.0-16.5); Lymphocyte # 1.97 X10^3/ul (0.83-4.51); Lymphocyte % 36.5 % (19-41); Mean Corp Hgb Conc 34.4 g/dL (32-36); Mean Corpuscular Hgb 29.7 pg (27.0-32.0); Mean Corpuscular Volume 86.3 fL (80-94); Mean Platelet Vol. 11.9 fl (6.2-12.0); Monocyte% 9.3 % (0-10); NRBC Flagged by Analyzer 0 % (0-5); Neutrophil # 2.73 X10^3/uL (2.7-7.7); Neutrophil % 50.5 % (47-70); Platelet Count 111 K/mm3 (150-450); RBC Distribution Width CV 13.2 % (11.6-14.6); Red Blood Count 4.98 M/mm3 (4.6-6.2); White Blood Count 5.4 K/mm3 (4.4-11.0)
[2021-09-30 16:36] LABS: Albumin, Serum 3.7 g/dL (3.2-5.0); Anion Gap 9 (5-15); BUN 14 mg/dL (7-18); BUN/Creat Ratio 13.3 RATIO (10-20); Chloride 108 mmol/L (98-107); Creatinine, Serum 1.05 mg/dL (0.70-1.30); EST Glomerular Filtration Rate 75 mL/min (>60); Est Glom Filt Rate - Afr Amer 91 mL/min (>60); Glucose 179 mg/dL (74-106); Potassium 4.1 mmol/L (3.5-5.1); Sodium Level 142 mmol/L (136-145)
[2021-09-30 16:49] LABS: Hemoglobin A1c 6.3 % (3.8-5.6)
[2021-09-30 16:51] LABS: Thyroid Stim Hormone (TSH) 2.11 uIU/mL (0.358-3.74)
[2021-10-15] VITALS (13 sets, daily range): BP systolic 110–146; BP diastolic 58–97; PULSE 64–101; RESP 16–20; TEMP 35.9–37.1; O2SAT 92–97; BMI 28.4; BMI 29.2
[2021-10-15 05:55] LABS: Bedside Glucose 209 mg/dL (70-110)
[2021-10-15] MEDS: Gabapentin 600 MG Tablet PO (06:10)
[2021-10-15] MEDS: Celecoxib 200 MG Capsule 400 MG PO (06:11)
[2021-10-15] MEDS: Acetaminophen 500 MG Tablet 1000 MG PO ×3 (06:11→22:15)
[2021-10-15] MEDS: Insulin Lispro 100 UNIT/ML INSULN.PEN SC ×3 (06:15→22:14)
[2021-10-15] MEDS: Lactated Ringers 1,000 ML 15 ML IV (06:27)
--- NOTE | 2021-10-15 07:11 | RAD_ITS ---
STUDY: X-RAY - RIGHT SHOULDER REASON FOR EXAM: Male, 66 years old. Post op -- AP and Lateral X-Ray of operative shoulder in PACU TECHNIQUE: 2 view(s) of the shoulder. COMPARISON: Comparison is made with prior examination of 10/06/2017. FINDINGS: The patient is status post right reverse total shoulder replacement. There is good alignment. Postoperative soft tissue swelling. RAD/Shoulder min 2 Views IMPRESSION: Status post reverse total shoulder replacement. Postoperative soft tissue changes. Electronically Signed: Deangelo Mora MD at 10:40 EST , Service support ,
[2021-10-15] MEDS: Cefazolin 2 GM in 0.9% Normal Saline 100 ML IV (07:52)
[2021-10-15] MEDS: Lactated Ringers 1,000 ML 999 ML IV (08:00)
[2021-10-15] MEDS: TXA 1000mg in NS100 100ml (IVPB at Incision) 660 MG IV (08:05)
[2021-10-15] MEDS: TXA 1000mg in NS100 100ml (IVPB at Closure) 660 MG IV (08:39)
--- NOTE | 2021-10-15 08:46 | OP.PCM_ITS ---
Report of Operation Pre-Operative Diagnosis: Right shoulder osteoarthritis with rotator cuff dysfunction And severe glenoid erosion Post-Operative Diagnosis: Right shoulder osteoarthritis with rotator cuff dysfunction and severe glenoid erosion Surgery/Procedure Performed:: Right reverse total shoulder replacement Description of Surgical Findings:: Stable shoulder Surgeon: Alan Amanda canine service instructor trainer: Trent Miguel Type of Anesthesia: General Anesthesiologist: James Choi Special Medications: 2 g Ancef, 1 g TXA at incision, 1 g TXA closure, 10 mg Decadron Specimen's removed: Bony cuts Estimated Blood Loss (mL): 150 Fluids Replaced: 1400 mL crystalloid Description of Procedure: Components used 1. [place] reunion glenoid baseplate 2. [place] reunion 36 mm, 6mm Glenosphere 3. So[place]ila reunion 36mm, 4mm humeral liner 4. Soheila reunion reverse TSA humeral adapter tray 4mm 5. [place] reunion humeral stem primary press-fit 18mm size Brief history/Operative indications: 66 yo M with history of right shoulder pain and cuff tear arthropathy. Patient failed conservative measures as mentioned in the H&P. After discussion of risk and benefits of reverse total shoulder replacement including but not limited to blood loss, DVTs, PEs, nerve vessel damage, infection, general risk of anesthesia including loss of life, instability and stiffness patient demonstrating understanding wish to proceed was able to sign informed consent. Medical clearance was obtained. Procedure: On the date of the procedure, patient's right upper extremity was marked in the preoperative area. Patient was taken back to the operating room where they were placed on the table in the supine position. Anesthesia assumed control of the C-spine and airway, then administered anesthetic. All bony prominences were identified well-padded, the head was secured and the patient was placed in the beachchair position at about 35? inclination. Anesthesia remained in control of the C-spine airway throughout the remainder of the procedure. Patient was then appropriately fastened to the table and the right upper extremity was prepped in a sterile fashion. The surgeons then scrubbed. Upon reentering the room, the right upper extremity was draped in a sterile fashion and the incision was marked out. Timeout was called, everyone agreed upon the side, the site, the procedure to be performed, patient identity and antibiotics given. Incision was taken down through skin and subcutaneous tissue, fat down to fascia. The stripe of the deltopectoral interval and cephalic vein were identified and blunt dissection was used to retract the deltoid. The cephalic vein was retracted laterally. Clavipectoral fascia was then incised and a cobra retractor was placed in the wound. The proximal one third of the pectoralis major insertion was released. Pectoralis tendon insertion was used to tenodesed the biceps tendon which was identified in the bicipital groove. Tenodesis was done with #1 Vicryl. Proximally we followed t he biceps tendon after transecting it into the rotator interval. The rotator interval was split and the arm was externally rotated. The split was 1 cm medial to the bicipital groove. Subscapularis tendon was released. We released down the anterior portion of the humeral head and a toure elevator was used to release the inferior portion of the humeral head. The arm was externally rotated and the shoulder was dislocated. The humeral head was then cut at its natural retroversion. Once his humeral head cut was made humerus was retracted out of the way and the glenoid was exposed. After exposing the glenoid, the labrum and the remaining proximal biceps were debrided. At this time we are able to view the entire outer edge of the glenoid. A central pin was placed we sequentially reamed over this central pin to 36mm. Once this was completed the central screw was measured and found to be. The glenoid baseplate was screwed into place. Wound was closely irrigated out with normal saline we then drilled sequentially for 2 screws. Screws were placed superiorly and inferiorly and tightened down the screws. Once the screws were appropriately tightened into place the glenoid baseplate was compressed against the exposed subchondral bone. A 36mm glenosphere was impacted into place engaging the Garcia taper. Attention was then turned towards the humerus. The humerus was again externally rotated exposing the proximal portion of the humerus. Central canal finder was then used to open up the canal. We reamed to a 18mm reamer. We then broached to a 18mm stem. We trialed the 4mm liner, with the 4mm humeral baseplate. We obtained an adequate reduction at this time with a nice stable shoulder. Good internal rotation to the gluteus, forward elevation to 140?, external rotation to 20?. Final components were then assembled on the back table, trials were removed and the wound was copiously irrigated with normal saline after dislocating the shoulder. Once the final components were assembled they were impacted into place. Shoulder was then reduced and found to be stable with good range of motion. Subscapularis tendon was repaired with #2 FiberWire. The wound was with chlorhexidine solution then copiously irrigated out with a 1 L normal saline lavage. The deltopectoral fascia was then closed using #1 Vicryl skin was closed using 2-0 Vicryl interrupted sutures and final skin closure was done with 3-0 Monocryl. Steri-Strips are placed for final skin closure. Sterile dressing was placed patient was then placed in a sling and awakened by anesthesia. Patient was then transferred to the PACU for recovery. Postoperative plan: Patient will be admitted to the hospital overnight. They will get physical therapy starting in 2 weeks with normal postoperative regimen. Patient will be placed on [] for DVT prophylaxis. The first postoperative appointment will be in 2 weeks for wound check and initiation of phase 1 physical therapy. During the course of the procedure the physician assistant boiler operator played a vital role. His intimate knowledge of my steps in the procedure aided in safe and expedient completion of the procedure. The PA played a vital rolls in positioning particularly in obtaining the appropriate beach chair position and securing the patient's body and head to the table. The PA was also vital in the retraction of soft tissues during the exposure and especially the glenoid work as this is a vital part of the procedure to prevent neurovascular damage. the PA was also vital and protecting soft tissues during times of bony cuts and reaming. He also played a vital role in closure with my direct supervision. The PA was also important during reduction and dislocation of the joint and trials intraoperatively. Complications No intraoperative complications Admit VTE Documentation VTE Present on Admission: No VTE Mechan Device Prophylaxis: SCD's VTE Pharm Prophylaxis ordered?: Yes
[2021-10-15 09:36] LABS: Bedside Glucose 91 mg/dL (70-110)
[2021-10-15] MEDS: Lactated Ringers 1,000 ML 125 ML IV (11:08)
--- NOTE | 2021-10-15 12:44 | PCM.PN.HOSP ---
Documented by User: DAO Hill 10/15/21 12:52 Subjective Subjective Patient seen and examined. Patient lying in bed no distress noted. Nurse at bedside. Objective Data Objective Data Vital Signs: Vital Signs Temp Pulse Resp BP Pulse Ox 97.8 F 78 16 130/85 H 94 10/15/21 11:58 10/15/21 11:58 10/15/21 11:58 10/15/21 11:58 10/15/21 11:58 Oxygen Flow Rate (L/min) 2 Oxygen Delivery Method Room Air Weight: 203 lb 12.8 oz Body Mass Index (BMI) 29.2 Intake & Output: Intake and Output for Last 24 Hours 10/13/21 10/14/21 10/15/21 23:59 23:59 23:59 Intake Total 3003.75 / 3003.75 Balance 3003.75 / 3003.75 Lab / Micro Data Result Diagrams: 09/30/21 14:31 09/30/21 14:31 Labs: Laboratory Results - last 24 hr 10/15/21 05:48: POC Glucose 209 H 10/15/21 09:26: POC Glucose 91 Micro: Microbiology 09/30/21 14:31 Swab (Method) Nasal Screen MRSA/MSSA - Final Radiography Diagnostic Testing: Radiology Impression Shoulder X-Ray 10/15/21 07:11 IMPRESSION: Status post reverse total shoulder replacement. Postoperative soft tissue changes. Electronically Signed: Deangelo Mora MD at 10:40 EST , Service support , Physical Exam Const alert, oriented x3 and no apparent distress HEENT head/scalp atraumatic Head and Scalp: normocephalic Eyes conjunctivae normal and no scleral icterus Neck full ROM and supple General: trachea midline Resp normal respiratory effort, normal air movement and clear to auscultation bilaterally Effort and Inspection: able to speak in complete sentences and symmetric chest movement Cardio regular rate, regular rhythm, S1 normal heart sound and S2 normal heart sound GI normal to inspection, nondistended, normoactive bowel sounds, soft to palpation and non-tender Extremity normal capillary refill and no clubbing, cyanosis or edema General Extremity: normal exam except as noted Right Upper Extremity: shoulder joint Shoulder Joint Exam - Right: inspection, palpation (Nontender), ROM (Not attempted due to surgery), neurovascular exam (Intact) and other (Sling to right arm intact) Assessment & Plan Assessment/Plan (1) Essential (primary) hypertension: (2) Diabetes mellitus type 2, controlled: QUALIFIERS: Diabetes mellitus complication status: without complication Diabetes mellitus terminal gauger supervisor insulin use: without terminal gauger supervisor use Qualified Code(s): E11.9 - Type 2 diabetes mellitus without complications PLAN: 1. Essential hypertension -Continue patient's home medication regimen including Norvasc -Vital signs per protocol, currently stable 2. Diabetes mellitus type 2 -Continue patient's home medication regimen of glimepiride and metformin -ACH S blood sugars with sliding scale insulin ordered as well 3. Hypothyroidism -Continue levothyroxine 4. History of prostate cancer -Not currently on medication regimen 5. right reverse total shoulder replacement -Postop day 0 -Patient not currently having any pain, received nerve block -Pain management regimen ordered per Ortho DVT prophylaxis-SCDs This patient was seen by DAO Hill under the supervision of 12 minutes spent in clinical coordination of patient's plan of care. Documented by User: Dr. Oli Killian MD 10/15/21 17:16 Objective Data Lab / Micro Data Result Diagrams: 09/30/21 14:31 09/30/21 14:31 Charges/Coding Addendum Addendum: Dr. Killian: I personally reviewed the chart and examined the patient, and agree with the above findings. 66-year-old male presents to the hospital for an elective shoulder surgery. 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 On 10/15/2021 he underwent a total shoulder arthroplasty. From medical stand point he has a history of hypothyroidism, glaucoma, GERD, diabetes, hypertension. We will continue all of his home medications and monitor. He did receive postoperative hydration so we will need to follow-up his renal function in the morning and make sure that is stable. Pain management per primary. We will follow peripherally. Clinical time spent in all patient care activities: 15 minutes Visit Charges OBSV E&M: 20696 Subsequent observation care L2
[2021-10-15] MEDS: Famotidine 20 MG Tablet PO (15:55)
[2021-10-15] MEDS: Cefazolin 1 GM/50 ML BAG IV (15:56)
[2021-10-15] MEDS: Pregabalin 50 MG Capsule 200 MG PO ×2 (15:56→22:13)
[2021-10-15] MEDS: Aspirin 81 MG TAB.CHEW PO (15:56)
[2021-10-15] MEDS: metFORMIN HCl 1,000 MG Tablet 1000 MG PO (15:58)
[2021-10-15] MEDS: Cholecalciferol (VIT D3) 25 MCG TABLET (1,000 UNITS) PO (15:58)
[2021-10-15] MEDS: Ensure Surgery 237 ML LIQUID PO (16:10)
[2021-10-15 17:06] LABS: Bedside Glucose 260 mg/dL (70-110)
[2021-10-15] MEDS: traMADol 50 MG Tablet PO (20:20)
[2021-10-15] MEDS: Senna/Docusate Sodium 1 Tablet 2 TABLET PO (22:15)
[2021-10-15] MEDS: Mirtazapine 15 MG Tablet PO (22:15)
[2021-10-15] MEDS: Timolol 0.5% 5ML OPTH.BTL 1 DRP EACH EYE (22:16)
[2021-10-15] MEDS: Dorzolamide 2% 10ml Bottle 1 DRP EACH EYE (22:16)
[2021-10-15 22:35] LABS: Bedside Glucose 254 mg/dL (70-110)
[2021-10-16] MEDS: Cefazolin 1 GM/50 ML BAG IV (00:57)
[2021-10-16 00:58] VITALS: BP 113/60; PULSE 69; RESP 16; TEMP 36.8; O2SAT 97
[2021-10-16] MEDS: traMADol 50 MG Tablet PO (03:52)
[2021-10-16 04:24] LABS: Hematocrit 38.5 % (40-54); Mean Corp Hgb Conc 33.8 g/dL (32-36); Mean Corpuscular Hgb 29.1 pg (27.0-32.0); Mean Corpuscular Volume 86.3 fL (80-94); Mean Platelet Vol. 12.7 fl (6.2-12.0); POSITIVE COUNT YES; Platelet Count 87 K/mm3 (150-450); RBC Distribution Width SD 40.8 fl (35.1-43.9); Red Blood Count 4.46 M/mm3 (4.6-6.2); White Blood Count 7.9 K/mm3 (4.4-11.0)
[2021-10-16 04:25] LABS: Scan Indicated on CBC? Y/N YES- FLAGS NOTED
[2021-10-16 04:49] LABS: Anion Gap 9 (5-15); BUN 18 mg/dL (7-18); BUN/Creat Ratio 17.5 RATIO (10-20); Calcium,Total 8.3 mg/dL (8.5-10.1); Chloride 109 mmol/L (98-107); Creatinine, Serum 1.03 mg/dL (0.70-1.30); EST Glomerular Filtration Rate 77 mL/min (>60); Est Glom Filt Rate - Afr Amer 93 mL/min (>60); Estimated Creatinine Clearance 71.86 ml/min; Glucose 146 mg/dL (74-106); Sodium Level 139 mmol/L (136-145)
[2021-10-16 05:23] LABS: Differential Comment SCANNED
[2021-10-16] MEDS: Pregabalin 50 MG Capsule 200 MG PO ×2 (05:41→13:45)
[2021-10-16] MEDS: Insulin Lispro 100 UNIT/ML INSULN.PEN SC ×2 (05:42→11:55)
[2021-10-16] MEDS: Acetaminophen 500 MG Tablet 1000 MG PO ×2 (05:42→13:46)
[2021-10-16] MEDS: Levothyroxine 125 MCG Tablet PO (05:42)
[2021-10-16 05:50] VITALS: BP 107/71; PULSE 71; RESP 18; TEMP 36.6; O2SAT 96
[2021-10-16 06:31] LABS: Bedside Glucose 160 mg/dL (70-110)
[2021-10-16] MEDS: metFORMIN HCl 1,000 MG Tablet 1000 MG PO (08:01)
[2021-10-16] MEDS: Aspirin 81 MG TAB.CHEW PO (08:01)
[2021-10-16] MEDS: Glimepiride 4 MG Tablet PO (08:02)
[2021-10-16 08:46] LABS: Bedside Glucose 173 mg/dL (70-110)
[2021-10-16] MEDS: Senna/Docusate Sodium 1 Tablet 2 TABLET PO (09:16)
[2021-10-16] MEDS: Cholecalciferol (VIT D3) 25 MCG TABLET (1,000 UNITS) PO ×2 (09:16→09:18)
[2021-10-16] MEDS: Famotidine 20 MG Tablet PO (09:17)
[2021-10-16] MEDS: amLODIPine 5 MG Tablet PO (09:17)
[2021-10-16] MEDS: Pantoprazole Sodium 40 MG Tablet PO (09:17)
[2021-10-16] MEDS: Timolol 0.5% 5ML OPTH.BTL 1 DRP EACH EYE (09:18)
[2021-10-16] MEDS: Dorzolamide 2% 10ml Bottle 1 DRP EACH EYE (09:18)
[2021-10-16] MEDS: Ensure Surgery 237 ML LIQUID PO ×2 (09:22→11:58)
--- NOTE | 2021-10-16 09:31 | PCM.PN.ORT ---
Subjective Subjective The patient was sitting in bed eating breakfast upon examination. Patient denies any chest pain, shortness of breath, dizziness, lightheadedness, nausea or vomiting, or calf pain. Pain is controlled on medications. No adverse overnight events. Overall patient is doing well this morning with his shoulder. Pain has been controlled. He denies any numbness and tingling. Objective Data Objective Data Vital Signs: Vital Signs Temp Pulse Resp BP Pulse Ox 97.9 F 71 18 107/71 96 10/16/21 05:50 10/16/21 05:50 10/16/21 05:50 10/16/21 05:50 10/16/21 05:50 Oxygen Flow Rate (L/min) 2 Oxygen Delivery Method Room Air Weight: 92.442 kg Body Mass Index (BMI) 29.2 Intake & Output: Intake and Output for Last 24 Hours 10/14/21 10/15/21 10/16/21 23:59 23:59 23:59 Intake Total 4053.75 / 4053.75 50 / 50 Balance 4053.75 / 4053.75 50 / 50 Lab / Micro Data Result Diagrams: 10/16/21 03:53 10/16/21 03:53 Labs: Laboratory Results - last 24 hr 10/15/21 09:26: POC Glucose 91 10/15/21 16:20: POC Glucose 260 H 10/15/21 22:13: POC Glucose 254 H 10/16/21 03:53: WBC 7.9, RBC 4.46 L, Hgb 13.0, Hct 38.5 L, MCV 86.3, MCH 29.1, MCHC 33.8, RDW Std Deviation 40.8, RDW Coeff of Letty 13.0, Plt Count 87 L, MPV 12.7 H, Differential Comment SCANNED 10/16/21 03:53: Sodium 139, Potassium 4.0, Chloride 109 H, Carbon Dioxide 21.0, Anion Gap 9, BUN 18, Creatinine 1.03, Estim Creat Clear Calc 71.86, Est GFR (MDRD) Af Amer 93, Est GFR (MDRD) Non-Af 77, BUN/Creatinine Ratio 17.5, Glucose 146 H, Calcium 8.3 L 10/16/21 05:41: POC Glucose 160 H 10/16/21 07:57: POC Glucose 173 H Micro: Microbiology 09/30/21 14:31 Swab (Method) Nasal Screen MRSA/MSSA - Final Radiography Diagnostic Testing: Radiology Impression Shoulder X-Ray 10/15/21 07:11 IMPRESSION: Status post reverse total shoulder replacement. Postoperative soft tissue changes. Electronically Signed: Deangelo Mora MD at 10:40 EST , Service support , Physical Exam Narrative Vital signs stable, afebrile Dressing is clean, dry, intact Ultra-sling fitting appropriately Sensation intact to axillary, radial, median, and ulnar distribution Motor intact to AIN, PIN, and ulnar nerve Const alert, oriented x3 and no apparent distress Assessment & Plan Assessment/Plan (1) Status post reverse total arthroplasty of right shoulder: PLAN: 1. S/P right reverse total shoulder arthroplasty POD #1 2. Continue Pain Medications: Tylenol, meloxicam, tramadol 3. DVT Prophylaxis: Take 81 mg aspirin twice daily for 4 weeks postoperatively for DVT prophylaxis 4. PT/OT: Continue with UltraSling at all times except to come out for range of motion exercises of the elbow and pendulum exercise 3 times daily. No range of motion of the postoperative shoulder until outpatient physical therapy begins. Outpatient physical therapy will begin 2 weeks postoperatively after follow-up with [facility] with x-rays and incision check. 5. H & H: 13.0/38.5, asymptomatic. Postoperative anemia secondary to acute blood loss from surgery without any intra operative complications. 6. Encouraged Incentive Spirometry 7. Disposition: Patient is orthopedically stable, plan will be for discharge home today. Patient will continue with the UltraSling for 6 weeks postoperatively. He will follow-up for his normal 2-week postoperative visit with x-rays on arrival and incision check. Plan will be to start physical therapy after his 2-week follow-up. He will follow-up per postop instructions. Continue with medications listed above. Patient would like his medications be E scribed to [facility] pharmacy. I have reviewed the [place] Automated Rx Reporting System (OARRS) report for this patient for refill pattern and other prescriber involvement as part of the appropriate surveillance for the provision of acute and chronic controlled medications. The report was requested and reviewed on the date of this entry and was considered in the prescribing process.
--- NOTE | 2021-10-16 09:36 | PCM.DC ---
Discharge Instructions Diet Discharge Diet: No restrictions Activity Discharge Activity: May Not Drive (while taking narcotic pain medications.) May shower in (days): 1 (Dressing must be intact to skin. Turn dressing away from water.) Ice area for (Minutes): 20 (Every 1-2 hours while awake. Please place barrier between skin and ice pack.) Weight Bearing Status: No weight bearing (Postoperative upper extremity) Additional Activity Instructions:: Continue with UltraSling at all times. Please come out of UltraSling 3 times daily working on elbow range of motion and pendulum exercises. No range of motion of postoperative shoulder. Will begin outpatient physical therapy after 2-week scheduled follow-up. Dressing / Incision Call your doctor if your incision/area has: Continuous Slow Oozing, Sudden Increased Bleeding, Increased Pain/ Swelling, Increased Redness and Foul Smelling Discharge Call your doctor if you observe: Fever of 101 or Higher, Shortness of breath, Chest pain and Uncontrolled pain Remove Dressing in: 4 days (Okay to remove dressing on October 20, 2021) Additional Dressing/Incision Instructions:: Follow [facility] Post-op Instructions. Once postoperative dressing has been removed only use gentle soap and water over the incision. Do not use any ointments, Neosporin, salves, alcohol pads over the incision for 6 weeks postoperatively. Do not submerge underwater for 6 weeks postoperatively. Do NOT use alcohol with narcotic pain medication. Do NOT make important decisions while taking narcotic medication. If you have problems with taking your medication (rash, itching, nausea, etc.) call the office at once. Follow Up Care Test Results: Test results from this visit will be discussed in further detail at your follow-up appointment, if applicable. Discharge Plan Admission Admit Date/Time: 10/15/21 07:42 Attending Provider: Alan Amanda Primary Care Provider: Grabiel Head Consulting Providers: Erna Contreras ; Jenny Gallegos ; Yefri Newell ; Miguel Cabrales ; Oli Killian Discharge Orders/Prescriptions Prescriptions: New sennosides-docusate sodium [Stool Softener-Stimulant Laxat] 8.6-50 mg Tablet 2 tab PO BID 5 Days Qty: 20 RF: 0 tramadol 50 mg Tablet 50 - 100 mg PO Q6H PRN PRN (Reason: Pain Score 4-10) 7 Days Qty: 56 RF: 0 acetaminophen 500 mg Tablet 1,000 mg PO Q8 14 Days Qty: 84 RF: 0 meloxicam 7.5 mg Tablet 7.5 mg PO BID 14 Days Qty: 28 RF: 0 aspirin 81 mg Tablet,Chewable 81 mg PO BIDCM 14 Days RF: 0 Continued timolol 0.5 % drops 1 drp EACH EYE BID RF: 0 Vyzulta 0.024 % drops 1 drp OPHTHALMIC QHS RF: 0 pregabalin [Lyrica] 200 mg capsule 200 mg PO TID RF: 0 pantoprazole 40 mg tablet,delayed release (DR/EC) 40 mg PO DAILY Qty: 90 RF: 3 amlodipine 5 mg tablet 5 mg PO DAILY Qty: 90 RF: 3 levothyroxine 125 MCG tablet 125 mcg PO DAILY RF: 0 metformin 500 MG tablet 1,000 mg PO BID RF: 0 glimepiride 4 MG tablet 4 mg PO DAILY RF: 0 cholecalciferol (vitamin D3) [Vitamin D3] 25 mcg (1,000 unit) Tablet 25 mcg PO DAILY RF: 0 mirtazapine 15 mg Tablet 15 mg PO QHS RF: 0 dorzolamide 2 % Drops 1 drp EACH EYE BID RF: 0 Restasis 0.05 % Dropperette 1 drp EACH EYE Q12H RF: 0 Discontinued aspirin 81 MG tablet,delayed release (DR/EC) 81 mg PO DAILY RF: 0 Referrals / Follow Up: Grabiel Head [Primary Care Provider] - Marianne Byrd PA [PHYSICIAN FORGING ENGINEER] - 10/29/21 2:30 pm Disposition Disposition (needs filled in before D/C Order can be placed): Home, Self Care
[2021-10-16 12:15] LABS: Bedside Glucose 219 mg/dL (70-110)
--- NOTE | 2021-10-16 12:30 | CASEMGMT ---
RN FABIOLA SKIP TRACER CM to room to meet with patient for initial transition planning/care coordination assessment. RN FABIOLA introduced self and role at [facility].? Pt voices understanding and consents to assessment at this time.? Pt resting in bed in no distress at this time.? Pt is A/O at this time and answers all questions appropriately.?? Care providers, pharmacy, and demographics verified/updated at this time. PCP: Dr Head Specialists: Dr Amanda-ortho, Dr Kirk Blackburn--optometry in [place] Preferred Pharmacy: [facility] Retail Insurance: [employer] PARR Prescription Benefit:?Yes Living Will/HPOA:? Pt does not currently have LW/HCPOA and declines info at this time.? LNOK: , Radha Living Arrangements: Lives w/ in one-story home w/basement. Denies difficulty w/stairs. Independent w/ADL's. and pt share home mgmt tasks. Transportation: . Brother and sister. DME: Has the following DME: shower chair, BSC ? Pt states no need for further DME at this time.? HHC/SNF: No hx of either. Denies need for HHC. Pt would like to to go [facility] for OP therapy and utilize [facility] [employer] transportation. Appt scheduled for 10/30 @ 1200--[facility] van transportation is not available that day. states she is able to transport pt that day. has also scheduled appt @ [facility] on 11/03 @ 1400--[facility] Van to transport. to schedule further OP pt's for pt. Pt wishes to return home and states has no concerns with going home at time of discharge.? ? CM to follow for any further discharge planning/needs.? Pt voices no further concerns/needs at this time.? Advised pt to ask for CM if any further questions/concerns/needs arise.? Voices understanding. [employer] form explained re: Observation status for treatment of right reverse total shoulder replacement. Explained hospitalization will be paid per his insurance policy for Outpatient billing and condition will continue to be evaluated for Inpt necessity. Also let pt know that [facility] sends paper in the billing packet with their phone number if questions arise. Discussed Pharmacy section of [employer] form and self administered medication guideline. Pt verbalizes understanding and does not have further questions. Form signed, copy made and placed in chart, and original given to pt. PLAN: ?Home w/OP therapy @ [facility] and discharge plans in place. Vinny PALOMARESN RN CM
[2021-10-16 14:33] VITALS: BP 121/76; PULSE 84; RESP 18; TEMP 36.8; O2SAT 94
[2021-10-20 09:23] LABS: Pathologist Review Reviewed
== END 2021-10-16 15:31 | disposition home or self-care (01) ==
LOC: SDC 10:43 → MS2 10:43
PROVIDERS: Anesthesiology; Admitting Provider Specialist; Referring Provider Specialist; Visit Provider Specialist
PROC: (CPT 23472; principal; 2021-10-15 07:00)
DX: M19.011 Primary osteoarthritis, right shoulder (principal); C61 Malignant neoplasm of prostate; E11.9 Type 2 diabetes mellitus without complications; I10 Essential (primary) hypertension; G47.33 Obstructive sleep apnea (adult) (pediatric); R06.02 Shortness of breath; E03.9 Hypothyroidism, unspecified; K21.9 Gastro-esophageal reflux disease without esophagitis; Z79.899 Other long term (current) drug therapy; Z79.84 Long term (current) use of oral hypoglycemic drugs; Z79.890 Hormone replacement therapy; Z79.82 Long term (current) use of aspirin; H54.8 Legal blindness, as defined in USA; N40.0 Benign prostatic hyperplasia without lower urinary tract symptoms; R13.10 Dysphagia, unspecified; F17.220 Nicotine dependence, chewing tobacco, uncomplicated
CPT/HCPCS: 23472; 64415; 36415; 73030; 80048; 82040; 82962; 83036; 83735; 84443; 85025; 85027; 87081; 96361; 96365; 96366; 97166; 99218; C1776; J7040; J7120; G0378; J2405

== ENCOUNTER 2021-10-19 00:19 | Emergency (ER) | payer MEDICARE, BC, SELFPAY ==
[2021-10-19 00:20] VITALS: BP 138/108; PULSE 81; RESP 15; O2SAT 98
[2021-10-19 00:21] VITALS: BP 138/108; PULSE 80; RESP 16; TEMP 36.6; O2SAT 97; BMI 27.0
--- NOTE | 2021-10-19 00:52 | EKG12_ITS ---
Test Reason : OVERDOSE Blood Pressure : / mmHG Vent. Rate : 070 BPM Atrial Rate : 070 BPM P-R Int : 166 ms QRS Dur : 066 ms QT Int : 370 ms P-R-T Axes : 022 -46 -01 degrees QTc Int : 399 ms Normal sinus rhythm Left axis deviation Inferior infarct , age undetermined Abnormal ECG Confirmed by SCAR ALDRIDGE, MAYRA ([id number]), graphic editor VITOR CHAPA ([id number]) on 10/20/2021 9:40:04 AM Referred By: ANJANA Confirmed By:MAYRA ABBOTT MD
--- NOTE | 2021-10-19 00:58 | CT_ITS ---
EXAM: CT HEAD WITHOUT INTRAVENOUS CONTRAST CLINICAL INDICATION: visual changes TECHNIQUE: Multiple axial images were obtained of the head without intravenous contrast. CTDIvol = ( 44.99 ) mGy, DLP = ( 880.47 ) mGycm This CT exam was performed using one or more of the following dose reduction techniques: automated exposure control, adjustment of the mA and/or kV according to patient size, and/or use of iterative reconstruction technique. This report was created using [employer] report generation technology. COMPARISON: 10/04/2019 CT head. FINDINGS: BRAIN AND EXTRA-AXIAL SPACES: Diffuse mild diffuse parenchymal atrophy. No mass or mass effect. No abnormal extra axial fluid collection. No intra- or extra-axial hemorrhage. No evidence of acute infarct. There is preservation of the ng/white matter interface. Posterior fossa structures are unremarkable. No hydrocephalus. Basal cisterns are patent. BONES/JOINTS: Unremarkable. No discrete lytic or blastic abnormalities. SOFT TISSUES: Numerous small metallic density foreign bodies along the left face resulting in extensive CT artifact. SINUSES: Unremarkable as visualized. Clear. MASTOID AIR CELLS: Unremarkable. Clear. ORBITS: Visualized globes, extraocular muscles, optic nerves and retrobulbar fat appear unremarkable. CT/Brain/Head without Contrast IMPRESSION: No acute intracranial pathology. No other findings to explain the clinical presentation. Electronically Signed: Miguel Castillo MD at 1:40 EST Tel , Service support ,
--- NOTE | 2021-10-19 01:20 | RAD_ITS ---
EXAM: XR CHEST, 1 VIEW CLINICAL INDICATION: chest pain TECHNIQUE: Frontal view of the chest. This report was created using [employer] report generation technology. COMPARISON: 10/15/2021. FINDINGS: LUNGS AND PLEURAL SPACES: Unremarkable. No consolidation or edema. No pneumothorax. No effusion. HEART: Unremarkable. Cardiac silhouette not enlarged. MEDIASTINUM: Central airways and mediastinal contour are unremarkable. BONES/JOINTS: Multilevel spine degenerative changes. Degenerative changes of acromioclavicular joints bilaterally and also of the left glenohumeral joint. Right total shoulder arthroplasty identified. SOFT TISSUES: Unremarkable. VASCULATURE: Ectatic thoracic aortic arch without atherosclerotic calcifications. RAD/Chest 1 View (Portable) IMPRESSION: No acute cardiopulmonary disease. Electronically Signed: Miguel Castillo MD at 1:58 EST Tel , Service support ,
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
[2021-10-19 01:31] LABS: Anion Gap 10 (5-15); BUN 12 mg/dL (7-18); BUN/Creat Ratio 13.6 RATIO (10-20); Calcium,Total 9.2 mg/dL (8.5-10.1); Chloride 111 mmol/L (98-107); Creatinine, Serum 0.88 mg/dL (0.70-1.30); EST Glomerular Filtration Rate 92 mL/min (>60); Est Glom Filt Rate - Afr Amer 111 mL/min (>60); Estimated Creatinine Clearance 92.06 ml/min; Glucose 163 mg/dL (74-106); Potassium 3.9 mmol/L (3.5-5.1); Sodium Level 140 mmol/L (136-145); Troponin-I HS 3 pg/mL (3.0-78.0)
[2021-10-19 02:12] LABS: Absolute Lymphocyte Count 1.72 X10^3/uL (0.83-4.51); Absolute Neutrophil Count 4.1 X10^3/uL (2.0-7.7); Basophil# 0.05 X10^3/uL; Basophil% 0.7 % (0-1); Eosinophil# 0.23 X10^3/uL; Eosinophils% 3.4 % (0-5); Hematocrit 42.5 % (40-54); Hemoglobin 14.5 g/dL (13.0-16.5); Lymphocyte # 1.72 X10^3/ul (0.83-4.51); Lymphocyte % 25.3 % (19-41); Mean Corp Hgb Conc 34.1 g/dL (32-36); Mean Corpuscular Hgb 29.4 pg (27.0-32.0); Mean Corpuscular Volume 86.2 fL (80-94); Mean Platelet Vol. 13.1 fl (6.2-12.0); Monocyte# 0.66 X10^3/uL; Monocyte% 9.7 % (0-10); NRBC Flagged by Analyzer 0 % (0-5); Neutrophil # 4.11 X10^3/uL (2.7-7.7); Neutrophil % 60.3 % (47-70); POSITIVE COUNT YES; Platelet Count 76 K/mm3 (150-450); RBC Distribution Width CV 13.2 % (11.6-14.6); RBC Distribution Width SD 41.2 fl (35.1-43.9); Red Blood Count 4.93 M/mm3 (4.6-6.2); White Blood Count 6.8 K/mm3 (4.4-11.0)
[2021-10-19 03:15] VITALS: BP 149/98; PULSE 70; RESP 16; O2SAT 96
[2021-10-19 03:49] LABS: Troponin-I HS 4 pg/mL (3.0-78.0)
[2021-10-19] MEDS: hydrOXYzine PAM 25 MG Capsule PO (04:02)
[2021-10-19 04:20] VITALS: BP 145/90; PULSE 87; RESP 16; O2SAT 98
== END 2021-10-19 04:21 | disposition home or self-care (01) ==
PROVIDERS: Emergency Provider Student in an Organized Health Care Education/Training Program; Visit Provider Student in an Organized Health Care Education/Training Program
DX: F41.1 Generalized anxiety disorder (principal); E11.39 Type 2 diabetes mellitus with other diabetic ophthalmic complication; H54.8 Legal blindness, as defined in USA; I10 Essential (primary) hypertension; N40.0 Benign prostatic hyperplasia without lower urinary tract symptoms; M19.90 Unspecified osteoarthritis, unspecified site; K21.9 Gastro-esophageal reflux disease without esophagitis; H42 Glaucoma in diseases classified elsewhere; E03.9 Hypothyroidism, unspecified; G47.33 Obstructive sleep apnea (adult) (pediatric); Z79.84 Long term (current) use of oral hypoglycemic drugs; Z79.82 Long term (current) use of aspirin; Z79.899 Other long term (current) drug therapy
CPT/HCPCS: 70450; 71045; 80048; 84484; 85025; 93005; 99285; A4216

== ENCOUNTER 2021-12-22 12:12 | Outpatient (CLI) | payer MEDICARE, BC, SELFPAY ==
[2021-12-22 12:52] LABS: Absolute Lymphocyte Count 2.06 X10^3/uL (0.83-4.51); Absolute Neutrophil Count 3.4 X10^3/uL (2.0-7.7); Basophil# 0.05 X10^3/uL; Basophil% 0.8 % (0-1); Eosinophil# 0.12 X10^3/uL; Hematocrit 45.7 % (40-54); Hemoglobin 15.5 g/dL (13.0-16.5); Lymphocyte # 2.06 X10^3/ul (0.83-4.51); Lymphocyte % 33.9 % (19-41); Mean Corp Hgb Conc 33.9 g/dL (32-36); Mean Corpuscular Hgb 29.5 pg (27.0-32.0); Mean Platelet Vol. 12.5 fl (6.2-12.0); Monocyte# 0.43 X10^3/uL; Monocyte% 7.1 % (0-10); NRBC Flagged by Analyzer 0 % (0-5); Neutrophil # 3.39 X10^3/uL (2.7-7.7); Neutrophil % 55.9 % (47-70); Platelet Count 122 K/mm3 (150-450); RBC Distribution Width CV 13.1 % (11.6-14.6); RBC Distribution Width SD 40.8 fl (35.1-43.9); Red Blood Count 5.25 M/mm3 (4.6-6.2); White Blood Count 6.1 K/mm3 (4.4-11.0)
[2021-12-22 13:46] LABS: ALB/GLOB Ratio 1.1 RATIO (0.9-2.4); AST(SGOT) 47 U/L (15-37); Alanine Aminotransfer ALT/SGPT 73 U/L (16-61); Albumin, Serum 3.8 g/dL (3.2-5.0); Alkaline Phosphatase 91 U/L (45-117); Anion Gap 6 (5-15); BUN 14 mg/dL (7-18); BUN/Creat Ratio 12.4 RATIO (10-20); Calcium,Total 8.7 mg/dL (8.5-10.1); Chloride 105 mmol/L (98-107); Creatinine, Serum 1.13 mg/dL (0.70-1.30); EST Glomerular Filtration Rate 69 mL/min (>60); Est Glom Filt Rate - Afr Amer 83 mL/min (>60); Globulin 3.6 g/dL (2.2-4.2); Glucose 284 mg/dL (74-106); LDH 162 U/L (87-241); PSA,Total- Diagnostic 3.77 ng/mL (0.0-4.0); Protein, Total 7.4 g/dL (6.4-8.2); Sodium Level 139 mmol/L (136-145)
== END 2021-12-22 23:59 | disposition home or self-care (01) ==
LOC: LAB 12:14
PROVIDERS: Referring Provider Internal Medicine Medical Oncology; Visit Provider Internal Medicine Medical Oncology
DX: I20.1 Angina pectoris with documented spasm (principal); C61 Malignant neoplasm of prostate
CPT/HCPCS: 36415; 80053; 83615; 84153; 85025

== ENCOUNTER 2022-01-13 15:00 | Outpatient (RCR) | payer MEDICARE, BC, SELFPAY ==
--- NOTE | 2021-10-31 14:44 | HP.PTEVAL_ITS ---
Patient's Visit Information ROBERT ART is a 66 year old M referred to Physical Therapy by Dr. Alan Amanda MD with a diagnosis of R rev TSA 10/15/21. Date of Evaluation: 10/31/21 Physical Therapist: Prince Coburn, PT, ATC - Visit Plan Frequency: 2-3x /Week Duration: 4-6 Weeks Plan: PROM for first 2 weeks. Then progress to AROM on second week. Commence strengthening at 6 weeks post op - Subjective DOS: 10/15/21. Pt reports a chronic Hx of R shoulder pain for several years. Pt notes he finally had to have a reverse TSA performed at that time. Pt notes he is still in a lot of pain today. Pt reports sleep difficulty at this time sec ondary to pain and his glaucoma. Pt reports he is R hand dominant. 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 Pt reports he was limited with all ADLs and IADL's prior to having surgery secondary to pain and weakness. Pt reports he is currently limited with all IADL's at this time. Pt notes he is also limited with most yardwork and IADL's secondary to the severeness of his glaucoma. Pt reports he cant see more than approximately 5 feet away. 4/10 pain at rest, 8/10 pain at worst (when he is trying to sleep) - Pain R shoulder Pain Intensity (Out of 10): 4 Pain Intensity Range: 8 - Objective Neuro: B UE sensation is WNL to light touch. ROM: L shoulder flex= 140, abd= 140, ER= 10, IR WNL: R shoulder flex= 35, abd= 35, ER= 0. MMT: R shoulder is 2- /5 while L shoulder is 5/5. Observation: Incision is healing well. No signs of infection - Balance/Special Test Scores Quick DASH Score: 86.3625 - Goals Goal 1:: Decrease R shoulder pain x 50% to aid with sleep Goal Time Frame: 4-6 Weeks Goal 2:: Increase R shoulder ROM flex and abd ROM x 40 degrees to aid with overhead lifting Goal Time Frame: 4-6 Weeks Goal 3:: Increase R shoulder strength x 1 grade to aid with IADL's Goal Time Frame: 4-6 Weeks Goal 4:: I with HEP Goal Time Frame: 4-6 Weeks - Rehabilitation Potential Physical Therapy Diagnosis: Pt has R shoulder pain, weakness, and limited ROM secondary to R TSA Rehabilitation Potential: Good - Anticipated Interventions Patient/Client Instruction: Educate patient on: Condition, Plan of Care For the Purpose of:: To improve self management Therapeutic Exercise to Include: Strength training, Endurance training, Flexibilty training, Passive ROM, Active ROM, Scapular Strength/Stabilization For the Purpose of:: To decrease pain, To increase ROM, To improve muscle performance and motor function Cryotherapy (ice pack, ice massage): Yes For the Purpose of:: To decrease pain Thank you for the opportunity to evaluate your patient. For Medicare and Medicare HMO plans, please review the plan of care and approve it. It will need to be FAXED BACK to us at [phone] for Medicare purposes. For Medicare only, by signing this I certify the plan of care. Please let me know if there are questions or concerns regarding this plan of care. Physician Signature: Date:
--- NOTE | 2021-12-11 15:32 | HP.PTREVAL ---
Dr. Alan Amanda MD, It has been my pleasure to treat ROBERT ART over the last 12 visits for R rev TSA 10/15/21. Please see the progress note below for an update on the physical therapy plan of care! Subjective: My pain is getting better, but I still have to take pain meds Objective/Function: R shoulder pain ranges from 4-9/10. R shoulder AROM: flex= 115, abd= 105. R shoulder MMT: 4/5 throughout available ROM Plan Plan: Continue with R shoulder stretching and strengthening Balance/Gait/Functional tests - Balance/Special Test Scores Quick DASH Score: 40.9075 Goals Goal 1:: Decrease R shoulder pain x 50% to aid with sleep Goal Time Frame: 4-6 Weeks Goal Progress: Progressing Goal 2:: Increase R shoulder ROM flex and abd ROM x 40 degrees to aid with overhead lifting Goal Time Frame: 4-6 Weeks Goal Progress: Goal Met Goal 3:: Increase R shoulder strength x 1 grade to aid with IADL's Goal Time Frame: 4-6 Weeks Goal Progress: Goal Met Goal 4:: I with HEP Goal Time Frame: 4-6 Weeks Goal 5:: Increase R shoulder strength to be equal to L shoulder to aid with IADL's Goal Time Frame: 4-6 Weeks Goal Progress: New goal Goal 6:: Increase R shoulder ROM x 20 degrees to aid with overhead activity Goal Time Frame: 4-6 Weeks Goal Progress: New goals Anticipated Interventions Patient/Client Instruction: Educate patient on: Condition, Plan of Care For the Purpose of:: To improve self management Therapeutic Exercise to Include: Strength training, Endurance training, Flexibilty training, Passive ROM, Active ROM, Scapular Strength/Stabilization For the Purpose of:: To decrease pain, To increase ROM, To improve muscle performance and motor function Cryotherapy (ice pack, ice massage): Yes For the Purpose of:: To decrease pain Please do not hesitate to contact me at [phone] by phone or if you have questions or concerns regarding this new plan of care! Sincerely, rPince Coburn, PT, ATC
--- NOTE | 2022-01-13 15:51 | HP.PTDCSUM ---
It has been my pleasure to treat ROBERT ART referred by Dr. Alan Amanda MD, with the diagnosis of R rev TSA 10/15/21 for a total of 20 visit(s). Discharge Date: Please see the following information for a summary of their discharge status. Subjective: I dont really have pain today. I am ready to be done R shoulder Pain Intensity (Out of 10): 1 % Improvement: 95 Objective/Function: R shoulder pain is 1/10. R shoulder strength is 5/5 throughout. R shoulder ROM: flex= 120, abd= 95, ER= 40 degrees, IR= is still moderately limited. Pt is I with HEP Goal 1:: Decrease R shoulder pain x 50% to aid with sleep Goal Progress: Goal Met Goal 2:: Increase R shoulder ROM flex and abd ROM x 40 degrees to aid with overhead lifting Goal Progress: Goal Met Goal 3:: Increase R shoulder strength x 1 grade to aid with IADL's Goal Progress: Goal Met Goal 4:: I with HEP Goal Progress: Goal Met Goal 5:: Increase R shoulder strength to be equal to L shoulder to aid with IADL's Goal Progress: New goal Goal 6:: Increase R shoulder ROM x 20 degrees to aid with overhead activity Goal Progress: Goal Met Plan: Discharge If there are questions or concerns regarding this patient's physical therapy, please feel free to call me at [phone]. Thank you for the referral of this patient. Sincerely, Prince Coburn, PT, ATC Balance/Gait/Functional tests - Balance/Special Test Scores Quick DASH Score: 9.0900
== END 2022-01-13 19:00 | disposition home or self-care (01) ==
LOC: PT 15:00
PROVIDERS: Referring Provider Specialist; Visit Provider Specialist
DX: Z47.1 Aftercare following joint replacement surgery (principal); Z96.611 Presence of right artificial shoulder joint
CPT/HCPCS: 97110; 97140; 97161; 97164; 97530

== ENCOUNTER → 2022-03-09 | Outpatient (CLI) | payer MEDICARE, BC, SELFPAY | END | disposition home or self-care (01) | LOC: LAB 12:48 | PROVIDERS: Referring Provider Urology; Visit Provider Urology | DX: C61 Malignant neoplasm of prostate (principal) | CPT/HCPCS: 36415; 84153 ==

== ENCOUNTER → 2022-10-14 | Outpatient (CLI) | payer MEDICARE, BC, SELFPAY ==
[2022-10-14 15:50] LABS: PSA,Total- Diagnostic 4.99 ng/mL (0.0-4.0)
== END | disposition home or self-care (01) ==
LOC: LAB 14:51
PROVIDERS: Visit Provider Registered Nurse
DX: C61 Malignant neoplasm of prostate (principal)
CPT/HCPCS: 36415; 84153

== ENCOUNTER → 2022-11-12 | Outpatient (CLI) | payer MEDICARE, BC, SELFPAY ==
--- NOTE | 2022-11-12 | IMM_PTH ---
PATIENT: ROBERT ART LOC: [facility] U#:[id number] AGE/SX: 67/M ROOM: RE11/12/[address]: Dr. Emile Berger MD : 1955 BED: DIS: 11/12/2022 SPEC #: [id number] RECD: 11/16/22 10:32 STATUS: GRACE REQ #: [id number] SILVINO: 11/12/22 00:[address]: Emile Berger DEPT: IMMUNOHISTOCHEMISTRY RECD BY: Savannah Iyer ENTERED: 11/16/22 10:34 SP TYPE: IMMUNO OTHR DR: Grabiel Head Tissues: A - PROSTATE RIGHT B - PROSTATE RIGHT C - PROSTATE RIGHT E - PROSTATE LEFT F - PROSTATE LEFT Procedures: 34BE12 (add) P40 (add) 34BE12 (initial) PHYSICIAN & INSTITUTION [place] [id number] SPECIMEN INFORMATION: Tissue Source: A - Right apex, B - Right mid, C - Right base, E - Left mid, F - Left base Clinical Info: Elevated PSA Specimen Number: [id number] A-C, E & F CPT code: 62386, 54549 x9 METHODOLOGY: Deparaffinized sections of prefer/formalin-fixed tissue or PAP/DQ stained slides are incubated with monoclonal/polyclonal antibodies/oligonucleotide probes. Localization is made via biotin free immunoperoxidase method. Appropriate controls are performed and reacted as expected. Results on target cell population are indicated in the following table: RESULTS: ANTIBODY / CLONE RESULT Block A P40 (BC28) negative 34BE12 (34BE12) negative Block B P40 (BC28) negative * 34BE12 (34BE12) negative * Block C P40 (BC28) positive 34BE12 (34BE12) positive Block E P40 (BC28) negative * 34BE12 (34BE12) negative * Block F P40 (BC28) negative 34BE12 (34BE12) negative *?Positive in HGPIN. These tests were developed and their performance characteristics determined by [facility]. They may not have been cleared or approved by the U.S. Food and Drug Administration. The FDA has determined that such clearance or approval is not necessary. The above immunohistochemical/dualISH markers are ordered and reviewed by the Pathologist. INTERPRETATION: A. Right prostate, apex, core biopsy: Adenocarcinoma. B. Right prostate, mid, core biopsy: Focal atypical small acinar proliferation (CLEMENTE). Focal high-grade prostatic intraepithelial neoplasia (HGPIN). C. Right prostate, base, core biopsy: Focal high-grade prostatic intraepithelial neoplasia (HGPIN). E. Left prostate, mid, core biopsy: Focal atypical small acinar proliferation (CLEMENTE). Focal high-grade prostatic intraepithelial neoplasia (HGPIN). F. Left prostate, base, core biopsy: Adenocarcinoma. SJ:darlyn 11/17/2022
--- NOTE | 2022-11-12 | PROSBIL_PTH ---
PATIENT: ROBERT ART LOC: [facility] U#:[id number] AGE/SX: 67/M ROOM: RE11/12/[address]: Dr. Emile Berger MD : 1955 BED: DIS: 11/12/2022 SPEC #: [id number] RECD: 11/12/22 16:26 STATUS: GRACE LIZZY #: [id number] SILVINO: 11/12/22 00:[address]: Emile Berger DEPT: SURGICAL PATHOLOGY RECD BY: Rojas Barrios ENTERED: 11/13/22 07:57 SP TYPE: PROST BX FRED DR: Grabiel Head Tissues: A - PROSTATE RIGHT B - PROSTATE RIGHT C - PROSTATE RIGHT D - PROSTATE LEFT E - PROSTATE LEFT F - PROSTATE LEFT Procedures: PROSTATE BX HEADER OPERATION: Prostate biopsy PRE-OP DIAGNOSIS: Elevated PSA TISSUE SUBMITTED: A - Right apex, B - Right mid, C - Right base, D - Left apex, E - Left mid, F - Left base MICROSCOPIC DIAGNOSIS A. Right prostate, apex, core biopsy: Prostatic adenocarcinoma. Sherly grade: 3+3=6 Number of cores involved: 2/2 Proportion of tissue involved: ~10% Perineural invasion: Not identified. Greatest tumor length: 1.1 cm, discontinuous. See comment. B. Right prostate, mid, core biopsy: Focal atypical small acinar proliferation (CLEMENTE). Focal high-grade prostatic intraepithelial neoplasia (HGPIN). Chronic inflammation. See comment. C. Right prostate, base, core biopsy: Focal high-grade prostatic intraepithelial neoplasia (HGPIN). See comment. D. Left prostate, apex, core biopsy: Prostatic adenocarcinoma. Sherly grade: 3+3=6 Number of cores involved: 2/2 Proportion of tissue involved: ~20% Perineural invasion: Present. Greatest tumor length: 0.4 cm E. Left prostate, mid, core biopsy: Focal atypical small acinar proliferation (CLEMENTE). Focal high-grade prostatic intraepithelial neoplasia (HGPIN). See comment. F. Left prostate, base, core biopsy: Prostatic adenocarcinoma. Sherly grade: 3+3=6 Number of cores involved: 1/2 Proportion of tissue involved: ~5% Perineural invasion: Not identified. Greatest tumor length: 0.1 cm Focal high-grade prostatic intraepithelial neoplasia (HGPIN). Chronic inflammation. See comment. AFTAB:darlyn 11/16/2022 COMMENT A-C, E & F - Immunohistochemistry ([id number]) supports the above diagnosis. Please make reference to previous specimen ([id number]) right prostate, base, left prostate, apex and left prostate, base, core biopsies with diagnosis of ?prostatic adenocarcinoma? and right prostate, apex and right prostate, mid with diagnosis of ?high-grade prostatic intraepithelial neoplasia (HGPIN).? Case has been reviewed in consultation with Dr. Boggs who concurs with the above diagnosis. IDC:AM MICROSCOPIC DESCRIPTION Slides are reviewed. GROSS DESCRIPTION A - Received is one container designated prostate, right apex. The specimen consists of two elongated fragments of light garcia-white soft tissue measuring 1.0 and 1.3 cm in length and 0.1 cm in diameter. The specimen is totally submitted in one cassette. B - Received is one container designated prostate, right mid. The specimen consists of two elongated fragments of light garcia-white soft tissue each measuring 1.5 cm in length and 0.1 cm in diameter. The specimen is totally submitted in one cassette. C - Received is one container designated prostate, right base. The specimen consists of two elongated fragments of light garcia-white soft tissue each measuring 1.5 cm in length and 0.1 cm in diameter. The specimen is totally submitted in one cassette. D - Received is one container designated prostate, left apex. The specimen consists of two elongated fragments of light garcia-white soft tissue each measuring 1.5 cm in length and 0.1 cm in diameter. The specimen is totally submitted in one cassette. E - Received is one container designated prostate, left mid. The specimen consists of two elongated fragments of light garcia-white soft tissue each measuring 1.7 cm in length and 0.1 cm in diameter. The specimen is totally submitted in one cassette. F - Received is one container designated prostate, left base. The specimen consists of two elongated fragments of light garcia-white soft tissue each measuring 1.5 cm in length and 0.1 cm in diameter. The specimen is totally submitted in one cassette. / SJ:darlyn 11/13/2022 TC:0 CPT: G0146
== END | disposition home or self-care (01) ==
LOC: LABSPEC 16:39
PROVIDERS: Referring Provider Urology; Visit Provider Urology
DX: R97.20 Elevated prostate specific antigen [PSA] (principal)
CPT/HCPCS: 88305; 88341; 88342; G0416

== ENCOUNTER 2023-02-20 13:45 | Emergency (ER) | payer MEDICARE, BC, SELFPAY ==
[2023-02-20 13:45] VITALS: BP 128/100; PULSE 86; RESP 16; TEMP 36.4; O2SAT 98; BMI 23.6
--- NOTE | 2023-02-20 13:56 | RAD_ITS ---
STUDY: X-RAY - PELVIS REASON FOR EXAM: Male, 67 years old. Fall TECHNIQUE: One view of the pelvis was obtained. COMPARISON: None. FINDINGS: There is a normal bowel gas pattern. Normal visualized soft tissue structures. There is artifact from clothing. Normal bilateral iliac wings, sacroiliac joints and visualized sacrum. Normal visualized bilateral superior and inferior pubic rami. Normal pubic symphysis. Normal ischial tuberosities. Normal visualized right femoral head. Normal right acetabulum. Normal right hip joint. Normal visualized left femoral head. There is tract from prior intervention in the left proximal femur. Normal left acetabulum. Normal left hip joint. RAD/Pelvis 1 or 2 Views IMPRESSION: No acute fracture. Electronically Signed: Teto Botello MD at 14:30 EDT ,
--- NOTE | 2023-02-20 13:56 | RAD_ITS ---
STUDY: X-RAY - LUMBAR SPINE REASON FOR EXAM: Male, 67 years old. Back pain TECHNIQUE: 2 view(s) of the lumbar spine were obtained. COMPARISON: None FINDINGS: Normal lumbar lordosis. There is no substantial scoliosis. There is a normal alignment of the vertebrae. There is multilevel endplate spondylosis of the lumbar vertebrae. There is facet spurring and sclerosis. Normal disc space heights. There is no demonstrated fracture. The soft tissue structures are unremarkable. RAD/Lumbar Spine 2 or 3 Views IMPRESSION: Degenerative changes of the spine, as detailed above. Electronically Signed: Teto Botello MD at 14:33 EDT ,
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
[2023-02-20] MEDS: HYDROcodone Bitartrate/Apap 5/325 Tablet PO (14:52)
== END 2023-02-20 15:08 | disposition home or self-care (01) ==
PROVIDERS: Emergency Provider Emergency Medicine; PCP Family Medicine; Visit Provider Emergency Medicine
DX: S30.0XXA Contusion of lower back and pelvis, initial encounter (principal); E11.9 Type 2 diabetes mellitus without complications; H54.8 Legal blindness, as defined in USA; I10 Essential (primary) hypertension; W10.9XXA Fall (on) (from) unspecified stairs and steps, initial encounter; R29.6 Repeated falls; Z79.82 Long term (current) use of aspirin; Z79.84 Long term (current) use of oral hypoglycemic drugs; Z79.899 Other long term (current) drug therapy
CPT/HCPCS: 72100; 72170; 99283

== ENCOUNTER 2023-02-24 20:38 | Emergency (ER) | payer MEDICARE, BC, SELFPAY ==
[2023-02-24 20:42] VITALS: BP 123/87; PULSE 90; RESP 20; TEMP 36.5; BMI 25.2
--- NOTE | 2023-02-24 21:00 | RAD_ITS ---
INDICATION: chest pain EXAMINATION/TECHNIQUE: X-RAY - XR Chest 1 View COMPARISON: 10/19/2021 chest radiograph. Findings: Single frontal view of the chest. Low lung volumes. LUNG PARENCHYMA: No acute focal airspace disease. 22 mm left lung base nodular opacity, to include pulmonary nodule. PLEURA: No pleural effusion. No pneumothorax. HEART/GREAT VESSELS: Cardiomediastinal silhouette is unremarkable. BONES: Right shoulder arthroplasty without obvious hardware complication. Right chest neurostimulator lead terminates off the right upper margin. RAD/Chest 1 View (Portable) IMPRESSION: 22 mm left lung base nodular opacity, to include pulmonary nodule. Recommend comparison with previous imaging to document long-term stability versus follow-up evaluation as neoplastic process is not excluded. Given low lung volumes, chest with no acute disease. Electronically Signed: Emerson Arredondo MD at 21:25 EDT ,
[2023-02-24] MEDS: 0.9% Normal Saline 1,000 ML 150 ML IV (21:07)
[2023-02-24 21:11] LABS: Absolute Lymphocyte Count 2.22 X10^3/uL (0.83-4.51); Absolute Neutrophil Count 4.9 X10^3/uL (2.0-7.7); Basophil# 0.06 X10^3/uL; Basophil% 0.8 % (0-1); Eosinophil# 0.12 X10^3/uL; Eosinophils% 1.5 % (0-5); Hematocrit 45.9 % (40-54); Hemoglobin 15.7 g/dL (13.0-16.5); Lymphocyte # 2.22 X10^3/ul (0.83-4.51); Lymphocyte % 27.9 % (19-41); Mean Corp Hgb Conc 34.2 g/dL (32-36); Mean Corpuscular Volume 87.6 fL (80-94); Mean Platelet Vol. 11.5 fl (6.2-12.0); Monocyte% 7.5 % (0-10); NRBC Flagged by Analyzer 0 % (0-5); Neutrophil # 4.92 X10^3/uL (2.7-7.7); Neutrophil % 61.9 % (47-70); Platelet Count 129 K/mm3 (150-450); RBC Distribution Width CV 12.7 % (11.6-14.6); RBC Distribution Width SD 40.6 fl (35.1-43.9); Red Blood Count 5.24 M/mm3 (4.6-6.2)
[2023-02-24] MEDS: proCHLORPERazine 10 MG/2 ML Vial IV (21:12)
[2023-02-24] MEDS: Acetaminophen/Butalbital/Caffe 1 Tablet PO (21:13)
[2023-02-24 21:48] LABS: Anion Gap 10 (5-15); BUN 23 mg/dL (7-18); BUN/Creat Ratio 19.5 RATIO (10-20); Calcium,Total 8.8 mg/dL (8.5-10.1); Chloride 112 mmol/L (98-107); Creatinine, Serum 1.18 mg/dL (0.70-1.30); EST Glomerular Filtration Rate 65 mL/min (>60); Est Glom Filt Rate - Afr Amer 79 mL/min (>60); Estimated Creatinine Clearance 67.71 ml/min; Glucose 175 mg/dL (74-106); Magnesium 1.8 mg/dL (1.6-2.6); Sodium Level 139 mmol/L (136-145); Troponin-I HS (w/2H Reflex) 3 pg/mL (3.0-78.0)
[2023-02-24 21:55] VITALS: BP 116/84; PULSE 68; RESP 13
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
[2023-02-24 22:14] VITALS: BP 109/86; PULSE 75; RESP 18; O2SAT 99
[2023-02-24 23:05] LABS: Reflex Troponin-HS? (from REC) Y
== END 2023-02-24 23:03 | disposition home or self-care (01) ==
PROVIDERS: Emergency Provider Emergency Medicine; PCP Family Medicine; Visit Provider Emergency Medicine
DX: R07.9 Chest pain, unspecified (principal); E11.9 Type 2 diabetes mellitus without complications; R51.9 Headache, unspecified; G89.29 Other chronic pain; H54.8 Legal blindness, as defined in USA; I10 Essential (primary) hypertension; R42 Dizziness and giddiness; R26.9 Unspecified abnormalities of gait and mobility; R91.1 Solitary pulmonary nodule; Z79.82 Long term (current) use of aspirin; Z79.84 Long term (current) use of oral hypoglycemic drugs; Z79.899 Other long term (current) drug therapy
CPT/HCPCS: 71045; 80048; 83735; 84484; 85025; 93005; 96361; 96374; 99285; J7030

== ENCOUNTER → 2023-03-11 | Outpatient (CLI) | payer MEDICARE, BC, SELFPAY ==
[2023-03-11 18:14] LABS: BNP,B-Type NATRIURETIC PEPTIDE 2.5 pg/mL (0-100)
[2023-03-11 18:16] LABS: Anion Gap 6 (5-15); BUN 26 mg/dL (7-18); BUN/Creat Ratio 22.6 RATIO (10-20); Calcium,Total 9.4 mg/dL (8.5-10.1); Chloride 110 mmol/L (98-107); Creatinine, Serum 1.15 mg/dL (0.70-1.30); EST Glomerular Filtration Rate 67 mL/min (>60); Est Glom Filt Rate - Afr Amer 81 mL/min (>60); Glucose 137 mg/dL (74-106); Potassium 4.1 mmol/L (3.5-5.1); Sodium Level 139 mmol/L (136-145)
== END | disposition home or self-care (01) ==
LOC: LAB 16:36
PROVIDERS: PCP Family Medicine; Visit Provider Nurse Practitioner Family
DX: R06.09 Other forms of dyspnea (principal); R07.9 Chest pain, unspecified; I10 Essential (primary) hypertension
CPT/HCPCS: 36415; 80048; 83880

== ENCOUNTER → 2023-03-25 | Outpatient (CLI) | payer MEDICARE, BC, SELFPAY ==
--- NOTE | 2023-03-25 14:29 | ECHOD_ITS ---
Reason For Study: SOB Procedure This was a 2D Doppler, Color Flow transthoracic echocardiogram. Exam performed in department. Left Ventricle Normal LV size. Left ventricular systolic function is normal. The estimated ejection fraction is 60 %. Stage 1 diastolic dysfunction. No regional wall motion abnormalities noted. Right Ventricle Normal RV size. Normal systolic function. Atria Normal left atrium. Normal right atrium. Mitral Valve Normal mitral valve. Tricuspid Valve Normal tricuspid valve. Aortic Valve Trisinus/trileaflet aortic valve. Pulmonic Valve The pulmonic valve is not well visualized. Great Vessels Normal aortic root. The pulmonary artery is normal size. Normal inferior vena cava. Pericardium/Pleural No pericardial effusion. MMode/2D Measurements & Calculations Ao root diam: 3.3 cm LAV(MOD-bp): 26.6 ml LVAd ap4: 20.5 cm2 LAV(MOD-bp) Indexed: 13.2 ml/m2 LVLd ap4: 8.0 cm LAV(MOD-sp2): 28.9 ml EDV(MOD-sp4): 42.6 ml LAV(MOD-sp4): 24.6 ml EDV(sp4-el): 45.0 ml LVAs ap4: 13.4 cm2 LVLs ap4: 6.9 cm ESV(MOD-sp4): 21.8 ml ESV(sp4-el): 22.0 ml EF(MOD-sp4): 48.8 % EF(sp4-el): 51.2 % SV(MOD-sp4): 20.8 ml SV(sp4-el): 23.1 ml LA A4 area: 11.6 cm2 LA dimension(2D): 3.5 cm RA A4 area: 11.3 cm2 Time Measurements MV dec time: 0.13 sec Doppler Measurements & Calculations MV E max rakan: 45.9 cm/sec Lat Peak E' Rakan: 6.0 cm/sec Med Peak E' Rakan: 3.7 cm/sec MV A max rakan: 95.2 cm/sec E/E' lat: 7.7 E/E' med: 12.3 MV E/A: 0.48 MV V2 max: 95.3 cm/sec MV dec slope: 419.1 cm/sec2 Ao V2 max: 93.7 cm/sec MV max P.6 mmHg Ao max P.5 mmHg MV V2 mean: 47.0 cm/sec Ao V2 mean: 68.6 cm/sec MV mean P.1 mmHg Ao mean P.1 mmHg MV V2 VTI: 23.6 cm Ao V2 VTI: 17.7 cm AV (velocity ratio): 0.88 LV V1 max: 81.7 cm/sec PA V2 max: 84.2 cm/sec LV V1 max P.7 mmHg PA V2 mean: 58.2 cm/sec LV V1 mean P.5 mmHg LV V1 mean: 56.9 cm/sec LV V1 VTI: 15.7 cm ECHO/Echo Complete Interpretation Summary Normal LV size. Left ventricular systolic function is normal. The estimated ejection fraction is 60 %. Stage 1 diastolic dysfunction. Ordering Physician: Dajuan Gray Referring Physician: Dajuan Gray Performed By: Dora Steele RCS
== END | disposition home or self-care (01) ==
LOC: CVS 14:28
PROVIDERS: PCP Family Medicine; Referring Provider Nurse Practitioner Family; Visit Provider Nurse Practitioner Family
DX: I20.1 Angina pectoris with documented spasm (principal); E11.9 Type 2 diabetes mellitus without complications; R06.09 Other forms of dyspnea; I10 Essential (primary) hypertension; H54.8 Legal blindness, as defined in USA
CPT/HCPCS: 93306

== ENCOUNTER → 2023-03-26 | Outpatient (CLI) | payer MEDICARE, BC, SELFPAY ==
--- NOTE | 2023-03-26 12:51 | STEWCON_ITS ---
Reason For Study: CHEST PAIN Stress Results Protocol: Dobutamine Protocol With Definity Maximum Predicted HR: 152 bpm Target HR: 129 bpm % Maximum Predicted HR: 88 % DurationHeart Rate Stage (mm:ss) (bpm) BP Dose Comment BASELINE 71 139/99 6 CC DEFINITY FOR ENTIRE TEST STAGE 1 4:55 60 148/14294.00 STAGE 2 3:00 74 174/91899.00 STAGE 3 3:00 115 190/51368.00 STAGE 4 4:08 134 168/93853.00 RECOVERY 90 137/90 Stress Duration: 15:03 mm:ss Maximum Stress HR: 134 bpm Baseline Echocardiogram Findings Stress Echo Wall motion Data Resting WM Intermediate WM Stress WM ECHO/Stress Test Echo W/Contrast Interpretation Summary Dobutamine stress echocardiogram. Reason for evaluation chest pain. Stress echocardiogram. Resting EKG demonstrates sinus rhythm with a rate of 72 bpm. Resting blood pres sure is 139/99 mmHg. Dobutamine was infused per usual protocol starting at 10 mcg/kg/min increasing in 3-minute aliquots to a peak of 40 mcg/kg/min. Continuous EKG monitoring was performed. The patien t maintained sinus rhythm throughout the recording. At rest there were no ST changes noted to sugg est ischemia. At peak infusion there were no ST or T wave changes noted to suggest ischemia. The maxi mum heart rate was 134 bpm which was 88% of max impacted heart rate. The peak blood pressure was 1 90/110 mmHg. Stress echocardiogram. Stress echocardiographic images were obtained with Defin ity enhancement. There was thickening of all terrazas noted at rest with an estimated ejection frac tion of 60%. At peak exercise there was improvement in ejection fraction to 75% with no wall motion abnormalities present. Conclusion: Dobutamine stress echocardiogram with no evidence of resting or echocardiograph ic ischemia present. Ordering Physician: Dajuan Gray Referring Physician: Dajuan Gray Performed By: Dora Steele RCS
== END | disposition home or self-care (01) ==
LOC: CVS 12:47
PROVIDERS: PCP Family Medicine; Referring Provider Nurse Practitioner Family; Visit Provider Nurse Practitioner Family
DX: R07.9 Chest pain, unspecified (principal); H54.8 Legal blindness, as defined in USA
CPT/HCPCS: 93017; 93350; C8928

== ENCOUNTER → 2023-04-20 | Outpatient (CLI) | payer MEDICARE, BC, SELFPAY ==
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
== END | disposition home or self-care (01) ==
LOC: CT 16:36
PROVIDERS: PCP Family Medicine; Referring Provider Otolaryngology; Visit Provider Otolaryngology
DX: R51.9 Headache, unspecified (principal)
CPT/HCPCS: 70450

== ENCOUNTER → 2023-06-22 | Outpatient (CLI) | payer MEDICARE, BC, SELFPAY ==
[2023-06-22 14:11] LABS: Absolute Lymphocyte Count 1.73 X10^3/uL (0.83-4.51); Absolute Neutrophil Count 2.6 X10^3/uL (2.0-7.7); Basophil# 0.05 X10^3/uL; Eosinophil# 0.08 X10^3/uL; Eosinophils% 1.6 % (0-5); Hemoglobin 14.6 g/dL (13.0-16.5); Lymphocyte # 1.73 X10^3/ul (0.83-4.51); Lymphocyte % 35.5 % (19-41); Mean Corpuscular Hgb 29.8 pg (27.0-32.0); Mean Corpuscular Volume 87.8 fL (80-94); Mean Platelet Vol. 11.5 fl (6.2-12.0); Monocyte# 0.42 X10^3/uL; Monocyte% 8.6 % (0-10); NRBC Flagged by Analyzer 0 % (0-5); Neutrophil # 2.56 X10^3/uL (2.7-7.7); Neutrophil % 52.5 % (47-70); Platelet Count 117 K/mm3 (150-450); RBC Distribution Width CV 12.8 % (11.6-14.6); RBC Distribution Width SD 41.3 fl (35.1-43.9); White Blood Count 4.9 K/mm3 (4.4-11.0)
[2023-06-22 15:01] LABS: ALB/GLOB Ratio 1.1 RATIO (0.9-2.4); AST(SGOT) 42 U/L (15-37); Alanine Aminotransfer ALT/SGPT 70 U/L (16-61); Albumin, Serum 3.7 g/dL (3.2-5.0); Alkaline Phosphatase 71 U/L (45-117); Anion Gap 7 (5-15); BUN 15 mg/dL (7-18); BUN/Creat Ratio 18.1 RATIO (10-20); Calcium,Total 8.9 mg/dL (8.5-10.1); Chloride 111 mmol/L (98-107); Creatinine, Serum 0.83 mg/dL (0.70-1.30); EST Glomerular Filtration Rate 98 mL/min (>60); Est Glom Filt Rate - Afr Amer 119 mL/min (>60); Globulin 3.3 g/dL (2.2-4.2); Glucose 166 mg/dL (74-106); LDH 150 U/L (87-241); PSA,Total- Diagnostic 6.94 ng/mL (0.0-4.0); Potassium 3.6 mmol/L (3.5-5.1); Sodium Level 139 mmol/L (136-145)
[2023-06-22 21:47] LABS: Xtra Tube EP Lab EXTRA TUBE
== END | disposition home or self-care (01) ==
LOC: LAB 13:36
PROVIDERS: Internal Medicine Medical Oncology; PCP Family Medicine; Referring Provider Urology; Visit Provider Urology
DX: C61 Malignant neoplasm of prostate (principal); I20.1 Angina pectoris with documented spasm
CPT/HCPCS: 36415; 80053; 83615; 84153; 85025

== ENCOUNTER → 2023-08-12 | Outpatient (CLI) | payer MEDICARE, BC, SELFPAY ==
--- NOTE | 2023-08-13 08:21 | PFT ---
INTRODUCTION: The patient is a 68-year-old male who presents for pulmonary function studies secondary to a diagnosis of dyspnea. Respiratory therapy reported good patient effort. Bronchodilators were used during testing. INTERPRETATION: Forced expiration spirometry demonstrates no evidence of a large airways obstructive ventilatory defect. There was no significant response to aerosolized bronchodilators. Spirograms are of good quality and plateau normally. Body plethysmography was performed and revealed lung volumes to be within normal limits. Diffusing capacity by single breath CO was also within normal limits. IMPRESSION: Grossly normal pulmonary function studies.
== END | disposition home or self-care (01) ==
LOC: PSN 12:24
PROVIDERS: PCP Family Medicine; Referring Provider Internal Medicine Critical Care Medicine; Visit Provider Internal Medicine Critical Care Medicine
DX: R06.09 Other forms of dyspnea (principal); R93.89 Abnormal findings on diagnostic imaging of other specified body structures
CPT/HCPCS: 94060; 94726; 94729

== ENCOUNTER → 2023-08-17 | Outpatient (CLI) | payer MEDICARE, BC, SELFPAY ==
--- NOTE | 2023-08-17 12:57 | CT_ITS ---
EXAM: CT CHEST WITHOUT INTRAVENOUS CONTRAST CLINICAL INDICATION: Abnormal CXR TECHNIQUE: Helically acquired images were obtained of the chest without intravenous contrast. This CT exam was performed using one or more of the following dose reduction techniques: automated exposure control, adjustment of the mA and/or kV according to patient size, and/or use of iterative reconstruction technique. COMPARISON: No relevant prior studies available. FINDINGS: LUNGS AND PLEURAL SPACES: There is atelectasis within the lingula. No mass. No pleural effusion or thickening. No pneumothorax. HEART: Unremarkable. Heart size is normal. No pericardial effusion. No significant coronary artery calcifications. MEDIASTINUM: Unremarkable. No mediastinal or hilar adenopathy. Esophagus is unremarkable. No hiatal hernia. THYROID: Unremarkable. No thyroid lesions. BONES/JOINTS: There is a total right shoulder prosthesis. No suspicious lytic or blastic abnormality. VASCULATURE: Unremarkable. Thoracic aorta is non-dilated. OTHER FINDINGS: This may correspond to finding on the chest x-ray. CT/Chest without Contrast IMPRESSION: Scarring or atelectasis within the lingula which likely corresponds chest x-ray. No other abnormalities are identified. Lung-RADS score: 1 - Recommend continued annual screening with a low-dose CT (LDCT) in 12 months. Electronically Signed: Saeed Brown MD at 23:55 [facility] ,
[2023-08-17 13:00] VITALS: PULSE 101; PULSE 103; PULSE 106; PULSE 95; PULSE 96; O2SAT 92; O2SAT 93; O2SAT 94; O2SAT 95; O2SAT 96
--- NOTE | 2023-08-17 14:26 | WT_ITS ---
PSN 6 Minute Walk Test 6 Minute Walk Test 6 Minute Walk Test: 6 Minute Walk Test PSN:6-Minute Walk Test Start: 08/17/23 13:21 Freq: Status: Active Protocol: RESP.6MINW Document 08/17/23 13:00 [facility] (Rec: 08/17/23 13:26 [facility] [id number]) 6 Minute Walk Test Date Performed 08/17/23 Time Performed 13:00 Height 5 ft 9 in Weight: 84.822 kg Weight in Pounds 187.[address]: Dr Pineda Assistive device used: Cane Pre-test Oxygen Delivery Method Room Air Pulse Ox 96 Pulse Rate (60-100) 96 Dyspnea Kailash Scale (0-10) 0 1st minute Oxygen Delivery Method Room Air Pulse Ox 92 Pulse Rate (60-100) 101 H 2nd minute Oxygen Delivery Method Room Air Pulse Ox 93 Pulse Rate (60-100) 103 H 3rd minute Oxygen Delivery Method Room Air Pulse Ox 94 Pulse Rate (60-100) 101 H 4th minute Oxygen Delivery Method Room Air Pulse Ox 95 Pulse Rate (60-100) 96 5th minute Oxygen Delivery Method Room Air Pulse Ox 95 Pulse Rate (60-100) 106 H 6th minute Oxygen Delivery Method Room Air Pulse Ox 93 Pulse Rate (60-100) 106 H Dyspnea Kailash Scale (0-10) 0.5 Exertion Kailash Scale (6-20) 11 Post-test Oxygen Delivery Method Room Air Pulse Ox 95 Pulse Rate (60-100) 95 Full Laps Walked 18 Partial Lap, Number of Tiles Walked 27 Total Distance Walked (ft) 1089 Interpretation Interpretation: Patient was able to ambulate 1089 feet over the course of 6 minutes on room air with the assistance of a cane, but no breaks. The patient experienced no significant desaturation, but did have persistent tachycardia throughout testing. These findings are consistent with a cardiovascular limitation exercise tolerance. Recommendations Recommendations: Patient requires no supplemental oxygen at this time.
== END | disposition home or self-care (01) ==
LOC: PSN 12:55
PROVIDERS: PCP Family Medicine; Referring Provider Internal Medicine Critical Care Medicine; Visit Provider Internal Medicine Critical Care Medicine
DX: R93.89 Abnormal findings on diagnostic imaging of other specified body structures (principal); R06.09 Other forms of dyspnea
CPT/HCPCS: 71250; 94618

== ENCOUNTER → 2023-09-17 | Outpatient (CLI) | payer MEDICARE, BC, SELFPAY ==
[2023-09-17 11:16] LABS: Hemoglobin A1c 5.9 % (3.8-5.6)
[2023-09-17 11:23] LABS: ALB/GLOB Ratio 1.2 RATIO (0.9-2.4); AST(SGOT) 32 U/L (15-37); Alanine Aminotransfer ALT/SGPT 56 U/L (16-61); Albumin, Serum 3.8 g/dL (3.2-5.0); Alkaline Phosphatase 69 U/L (45-117); Anion Gap 3 (5-15); BUN 20 mg/dL (7-18); BUN/Creat Ratio 21.1 RATIO (10-20); Calcium,Total 9.2 mg/dL (8.5-10.1); Chloride 110 mmol/L (98-107); Cholesterol 165 mg/dL (200); Creatinine, Serum 0.95 mg/dL (0.70-1.30); EST Glomerular Filtration Rate 84 mL/min (>60); Est Glom Filt Rate - Afr Amer 101 mL/min (>60); Globulin 3.3 g/dL (2.2-4.2); Glucose 104 mg/dL (74-106); High Density Lipoprotein 36 mg/dL; Potassium 4.1 mmol/L (3.5-5.1); Protein, Total 7.1 g/dL (6.4-8.2); Sodium Level 140 mmol/L (136-145); Thyroid Stim Hormone (TSH) 2.61 uIU/mL (0.358-3.74); Triglycerides 145 mg/dL; Very Low Density Lipoprotein 29 mg/dL (5-40)
== END | disposition home or self-care (01) ==
PROVIDERS: PCP Family Medicine; Referring Provider Family Medicine; Visit Provider Family Medicine
DX: E03.9 Hypothyroidism, unspecified (principal); E11.9 Type 2 diabetes mellitus without complications; I10 Essential (primary) hypertension; Z13.220 Encounter for screening for lipoid disorders
CPT/HCPCS: 36415; 80053; 80061; 83036; 84443

== ENCOUNTER → 2023-12-28 | Outpatient (CLI) | payer MEDICARE, BC, SELFPAY ==
[2023-12-28 13:04] LABS: Absolute Lymphocyte Count 1.83 X10^3/uL (0.83-4.51); Absolute Neutrophil Count 3.9 X10^3/uL (2.0-7.7); Basophil# 0.07 X10^3/uL; Basophil% 1.1 % (0-1); Eosinophil# 0.15 X10^3/uL; Eosinophils% 2.3 % (0-5); Hematocrit 44.7 % (40-54); Lymphocyte # 1.83 X10^3/ul (0.83-4.51); Lymphocyte % 28.3 % (19-41); Mean Corp Hgb Conc 33.6 g/dL (32-36); Mean Corpuscular Hgb 29.3 pg (27.0-32.0); Mean Corpuscular Volume 87.3 fL (80-94); Mean Platelet Vol. 11.8 fl (6.2-12.0); Monocyte# 0.46 X10^3/uL; Monocyte% 7.1 % (0-10); NRBC Flagged by Analyzer 0 % (0-5); Neutrophil # 3.92 X10^3/uL (2.7-7.7); Neutrophil % 60.6 % (47-70); Platelet Count 110 K/mm3 (150-450); RBC Distribution Width CV 12.7 % (11.6-14.6); RBC Distribution Width SD 40.2 fl (35.1-43.9); Red Blood Count 5.12 M/mm3 (4.6-6.2); White Blood Count 6.5 K/mm3 (4.4-11.0)
[2023-12-28 13:19] LABS: ALB/GLOB Ratio 1.1 RATIO (0.9-2.4); AST(SGOT) 43 U/L (15-37); Alanine Aminotransfer ALT/SGPT 66 U/L (16-61); Albumin, Serum 3.7 g/dL (3.2-5.0); Alkaline Phosphatase 73 U/L (45-117); Anion Gap 7 (5-15); BUN 16 mg/dL (7-18); BUN/Creat Ratio 15.2 RATIO (10-20); Calcium,Total 8.7 mg/dL (8.5-10.1); Chloride 110 mmol/L (98-107); Creatinine, Serum 1.05 mg/dL (0.70-1.30); EST Glomerular Filtration Rate 74 mL/min (>60); Est Glom Filt Rate - Afr Amer 90 mL/min (>60); Globulin 3.3 g/dL (2.2-4.2); Glucose 227 mg/dL (74-106); LDH 137 U/L (87-241); PSA,Total- Diagnostic 1.65 ng/mL (0.0-4.0); Potassium 3.9 mmol/L (3.5-5.1); Sodium Level 139 mmol/L (136-145)
== END | disposition home or self-care (01) ==
LOC: PAVLAB 12:21
PROVIDERS: Internal Medicine Medical Oncology; PCP Family Medicine; Referring Provider Nurse Practitioner; Visit Provider Nurse Practitioner
DX: C61 Malignant neoplasm of prostate (principal); I20.1 Angina pectoris with documented spasm
CPT/HCPCS: 36415; 80053; 83615; 84153; 85025

== ENCOUNTER → 2024-05-01 | Outpatient (CLI) | payer MEDICARE, BC, SELFPAY ==
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
== END | disposition home or self-care (01) ==
PROVIDERS: PCP Family Medicine; Referring Provider Clinical Nurse Specialist Adult Health; Visit Provider Clinical Nurse Specialist Adult Health
DX: M50.30 Other cervical disc degeneration, unspecified cervical region (principal)
CPT/HCPCS: 72050

== ENCOUNTER → 2024-10-11 | Outpatient (CLI) | payer MEDICARE, BC, SELFPAY ==
--- NOTE | 2024-10-11 11:58 | STRESSREP ---
Stress Test Report Pharmacologic myocardial perfusion stress test. 69-year-old man with a history of chest pain Resting EKG demonstrates sinus rhythm with a rate of 75 bpm. Resting blood pressure is 126/86 mmHg. 0.4 mg of regadenoson was infused per usual protocol followed by rapid intravenous saline flush injection. Continuous EKG monitoring was performed. The maximum heart rate was 96 bpm which was 64% of max impacted heart rate the maximum workload was 1 metabolic equivalent. At rest there were no ST or T wave changes noted to suggest ischemia and at peak infusion nonspecific ST changes were noted which did not meet the criteria for ischemia. No clinical angina is noted. The final blood pressure was 128/82 mmHg. Myocardial perfusion protocol. 13.9 mCi of technetium 99m sestamibi was injected at rest. 0.4 mg of regadenoson was infused per usual protocol. At peak infusion 42 mCi of technetium 99m sestamibi was injected stress images were obtained stress and rest images were reconstructed and compared in the short axis vertical long and horizontal long axis. Gated images were also obtained. Perfusion SPECT analysis: Review of the stress images demonstrate normal uptake of tracer noted in all areas of the myocardium. The resting images similar demonstrated normal uptake of tracer noted in all areas of the myocardium. No areas of reversibility are noted to suggest ischemia and no previous infarct is noted. Gated SPECT analysis: The gated ejection fraction is 63%. Conclusion: Normal pharmacologic myocardial perfusion stress test. Preserved ejection fraction.
== END | disposition home or self-care (01) ==
PROVIDERS: PCP Family Medicine; Referring Provider Internal Medicine Cardiovascular Disease; Visit Provider Internal Medicine Cardiovascular Disease
DX: R07.9 Chest pain, unspecified (principal)
CPT/HCPCS: 78452; 93017; A9500; A4216; J2785

== ENCOUNTER → 2024-12-25 | Outpatient (CLI) | payer MEDICARE, BC, SELFPAY ==
[2024-12-25 15:35] LABS: PSA,Total- Diagnostic 2.19 ng/mL (0.00-4.00)
== END | disposition home or self-care (01) ==
LOC: PAVLAB 14:29
PROVIDERS: Internal Medicine Medical Oncology; PCP Family Medicine; Referring Provider Urology; Visit Provider Urology
DX: C61 Malignant neoplasm of prostate (principal)
CPT/HCPCS: 36415; 84153

== ENCOUNTER → 2025-01-01 | Outpatient (CLI) | payer MEDICARE, BC, SELFPAY ==
--- NOTE | 2025-01-01 16:47 | CT_ITS ---
PROCEDURE: No acute intracranial abnormality 01/01/2025 REASON FOR EXAM: HEADACHES-LEGALLY BLIND TECHNIQUE: Head CT before and following intravenous contrast. Coronal and Sagittal reconstruction series were provided. CONTRAST: Omnipaque 350 VOLUME: 100 mL Not Provided Gauge IV One or more dose reduction techniques were used (e.g., Automated exposure control, adjustment of the mA and/or kV according to patient size, use of iterative reconstruction technique). COMPARISON: None FINDINGS: No acute intracranial hemorrhage, mass, mass effect, midline shift or pathologic extra-axial fluid collection. No suspicious parenchymal or leptomeningeal enhancement. Mild parenchymal atrophy with commensurate increase in CSF containing spaces. Patchy white matter hypodensities, patient demographics favor chronic microvascular ischemic changes. Paranasal sinuses and mastoid air cells are clear. Bilateral lens replacements. Metallic densities along the left periorbital region, anterior left maxillary wall and maxillary sinus with dense streak artifact, which limits evaluation. Postoperative changes are noted along the medial left anterior maxillary sinus wall. Slight irregularity along the left nasal bone. CT/Brain/Head W/WO Contrast IMPRESSION: No acute intracranial abnormality; no acute infarct, intracranial hemorrhage or extra-axial collection. No suspicious intracranial mass, abnormal parenchymal or leptomeningeal enhance ment. Chronic microvascular ischemia and involutional changes. Reading Location: [facility]
[2025-01-01 16:59] LABS: CREATININE FINGERSTICK < 1.0 mg/dL (0.70-1.30); EGFR FINGERSTICK > 60.0000 mL/min (>60)
== END | disposition home or self-care (01) ==
LOC: CT 16:30
PROVIDERS: PCP Family Medicine; Referring Provider Internal Medicine Medical Oncology; Visit Provider Internal Medicine Medical Oncology
DX: G44.309 Post-traumatic headache, unspecified, not intractable (principal); C61 Malignant neoplasm of prostate; S09.90XS Unspecified injury of head, sequela; X58.XXXS Exposure to other specified factors, sequela; H54.8 Legal blindness, as defined in USA
CPT/HCPCS: 70470; Q9967

== ENCOUNTER → 2025-02-21 | Outpatient (CLI) | payer MEDICARE, BC, SELFPAY ==
[2025-02-21 14:11] LABS: ALB/GLOB Ratio 1.6 RATIO (0.9-2.4); AST(SGOT) 45 U/L (<=37); Alanine Aminotransfer ALT/SGPT 52 U/L (<=46); Albumin, Serum 4.4 g/dL (3.4-4.8); Alkaline Phosphatase 79 U/L (40-129); Anion Gap 13 (5-15); BUN 16 mg/dL (4-19); BUN/Creat Ratio 17.7 RATIO (10-20); Calcium,Total 9.4 mg/dL (7.6-11.0); Carbon Dioxide 22.5 mmol/L (21.0-32.0); Chloride 103 mmol/L (98-108); Cholesterol 172 mg/dL (<=200); Creatinine, Serum 0.93 mg/dL (0.70-1.20); EST Glomerular Filtration Rate 89 (>60); Globulin 2.8 g/dL (2.2-4.2); Glucose 178 mg/dL (70-99); High Density Lipoprotein 34 mg/dL; Low Density Lipoprotein Calc. 87 mg/dL; Protein, Total 7.2 g/dL (5.9-8.4); Sodium Level 138 mmol/L (133-145); Total Bilirubin 0.55 mg/dL (0.00-1.30); Triglycerides 255 mg/dL; Very Low Density Lipoprotein 51 mg/dL (5-40); cholesterol:hdl ratio screen 5.12
== END | disposition home or self-care (01) ==
LOC: LAB 12:36
PROVIDERS: PCP Family Medicine; Referring Provider Family Medicine; Visit Provider Family Medicine
DX: I10 Essential (primary) hypertension (principal); E11.9 Type 2 diabetes mellitus without complications; E03.9 Hypothyroidism, unspecified; E78.00 Pure hypercholesterolemia, unspecified
CPT/HCPCS: 36415; 80053; 80061; 83036; 84443

== ENCOUNTER 2025-03-28 19:11 | Emergency (ER) | payer MEDICARE, BC, SELFPAY ==
[2025-03-28 19:12] VITALS: BP 138/99; PULSE 91; RESP 18; TEMP 36.7; O2SAT 98; BMI 26.6
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
[2025-03-28 19:21] VITALS: O2SAT 97
--- NOTE | 2025-03-28 19:21 | EKG12_ITS ---
Test Reason : CP Blood Pressure : */* mmHG Vent. Rate : 85 BPM Atrial Rate : 85 BPM P-R Int : 154 ms QRS Dur : 70 ms QT Int : 352 ms P-R-T Axes : 12 -60 33 degrees QTcB Int : 418 ms Normal sinus rhythm Left axis deviation Abnormal ECG Confirmed by SCAR ALDRIDGE, MAYRA ([id number]), primer expeditor and drier VITOR CHAPA ([id number]) on 03/29/2025 10:09:34 AM Referred By: KVNG Confirmed By: MAYRA ABBOTT MD
--- NOTE | 2025-03-28 19:21 | EKG12_ITS ---
Test Reason : CP Blood Pressure : */* mmHG Vent. Rate : 85 BPM Atrial Rate : 85 BPM P-R Int : 154 ms QRS Dur : 70 ms QT Int : 352 ms P-R-T Axes : 12 -60 33 degrees QTcB Int : 418 ms Normal sinus rhythm Left axis deviation Abnormal ECG Confirmed by SCAR ALDRIDGE, MAYRA ([id number]), website/blog editor VITOR CHAPA ([id number]) on 03/29/2025 10:09:34 AM Referred By: KVNG Confirmed By: MAYRA ABBOTT MD
[2025-03-28 19:57] LABS: Hematocrit 42.2 % (40-54); Hemoglobin 14.4 g/dL (13.0-16.5); Immature Granulocytes Count 0.030 X10^3/uL (0.0-0.0); Mean Corp Hgb Conc 34.1 g/dL (32-36); Mean Corpuscular Volume 85.4 fL (80-94); Mean Platelet Vol. 11.9 fl (6.2-12.0); NRBC Flagged by Analyzer 0 % (0-5); Platelet Count 118 K/mm3 (150-450); RBC Distribution Width CV 12.8 % (11.6-14.6); RBC Distribution Width SD 39.6 fl (35.1-43.9); Red Blood Count 4.94 M/mm3 (4.6-6.2); White Blood Count 6.6 K/mm3 (4.4-11.0)
--- NOTE | 2025-03-28 20:04 | RAD_ITS ---
PROCEDURE: CHEST 1 VIEW (PORTABLE) 03/28/2025 REASON FOR EXAM: CHEST PAIN TECHNIQUE: Frontal view of the chest. COMPARISON: Chest radiograph 02/24/2023, CT chest 08/17/2023 FINDINGS: Hardware: Right chest stimulator device and right shoulder arthroplasty. Heart: Cardiac and mediastinal contours are stable. Lungs: Linear consolidation at the left lung base, likely scarring or atelectasis. No significant pleural effusion. Bones: Degenerative changes are identified within the shoulders and thoracic spine. Unchanged healed left-sided rib fractures. RAD/Chest 1 View (Portable) IMPRESSION: No acute cardiopulmonary abnormality. Reading Location: [facility]
--- NOTE | 2025-03-28 20:04 | RAD_ITS ---
PROCEDURE: CHEST 1 VIEW (PORTABLE) 03/28/2025 REASON FOR EXAM: CHEST PAIN TECHNIQUE: Frontal view of the chest. COMPARISON: Chest radiograph 02/24/2023, CT chest 08/17/2023 FINDINGS: Hardware: Right chest stimulator device and right shoulder arthroplasty. Heart: Cardiac and mediastinal contours are stable. Lungs: Linear consolidation at the left lung base, likely scarring or atelectasis. No significant pleural effusion. Bones: Degenerative changes are identified within the shoulders and thoracic spine. Unchanged healed left-sided rib fractures. RAD/Chest 1 View (Portable) IMPRESSION: No acute cardiopulmonary abnormality. Reading Location: [facility]
[2025-03-28 20:15] VITALS: BP 148/99; PULSE 83; RESP 15; O2SAT 92
[2025-03-28 20:17] LABS: Anion Gap 17 (5-15); BUN 23 mg/dL (4-19); BUN/Creat Ratio 19.2 RATIO (10-20); Calcium,Total 10.0 mg/dL (7.6-11.0); Carbon Dioxide 17.7 mmol/L (21.0-32.0); Chloride 103 mmol/L (98-108); Estimated Creatinine Clearance 57.76 ml/min (50-250); Glucose 297 mg/dL (70-99); Potassium 4.5 mmol/L (3.3-5.1); Troponin T High Sensitivity 12 ng/L (<=22)
[2025-03-28 21:00] VITALS: BP 137/97; PULSE 80; RESP 14; O2SAT 92
[2025-03-28 22:00] VITALS: BP 137/97; PULSE 81; RESP 18; TEMP 36.6; O2SAT 99
[2025-03-28 22:13] LABS: Troponin T High Sens 2 HR 14 ng/L (<=22)
== END 2025-03-28 22:44 | disposition home or self-care (01) ==
PROVIDERS: Emergency Provider Emergency Medicine; PCP Family Medicine; Visit Provider Emergency Medicine
DX: R07.89 Other chest pain (principal); E11.65 Type 2 diabetes mellitus with hyperglycemia; I25.10 Atherosclerotic heart disease of native coronary artery without angina pectoris; I10 Essential (primary) hypertension; Z79.82 Long term (current) use of aspirin; Z79.84 Long term (current) use of oral hypoglycemic drugs; Z79.899 Other long term (current) drug therapy
CPT/HCPCS: 71045; 80048; 84484; 85025; 93005; 99285; A4216

== ENCOUNTER → 2025-04-24 | Outpatient (CLI) | payer MEDICARE, BC, SELFPAY | END | disposition home or self-care (01) | LOC: MTLAB 15:36 | PROVIDERS: PCP Family Medicine; Referring Provider Urology; Visit Provider Urology | DX: N39.0 Urinary tract infection, site not specified (principal) | CPT/HCPCS: 87086; 87088 ==